=== PATIENT | female | born 1950 | race Caucasian/White ===

== ENCOUNTER 2020-05-03 21:20 | Emergency (ER) | payer OTHER ==
[2020-05-03] MEDS ORDERED: HYDROCODONE/APAP 10/325 TAB ONE (22:11)
[2020-05-03] MEDS ORDERED: LIDOCAINE 1% MPF 5 ML VIAL ONE (22:49)
[2020-05-04] MEDS ORDERED: DERMABOND SKIN ADHESIVE TOP ONE (00:27)
--- NOTE | 2020-05-04 00:31 | ER ---
Nurse's Notes [facility] Name: Carrol Dickens Age: 70 yrs Sex: Female : 1950 Arrival Date: 05/03/2020 Time: 21:21 Bed 19 Private MD: Diagnosis: Laceration without foreign body of other part of head-forehead;Superficial injury of head Presentation: 05/03 21:27 Chief complaint: Patient's son or daughter states: adult child states: " she had some jd3 alcohol and lorazepam. she fell while trying to get to the bathroom.". Coronavirus screen: At this time, the client does not indicate any symptoms associated with coronavirus-19. Ebola Screen: Patient negative for fever greater than or equal to 101.5 degrees Fahrenheit, and additional compatible Ebola Virus Disease symptoms. Initial Sepsis Screen: Does the patient meet any 2 criteria? No. Patient's initial sepsis screen is negative. Does the patient have a suspected source of infection? No. Patient's initial sepsis screen is negative. Risk Assessment: Do you want to hurt yourself or someone else? Patient reports no desire to harm self or others. Onset of symptoms was May 03, 2020. 21:27 Method Of Arrival: Wheelchair jd3 21:27 Acuity: SHIN 3 jd3 22:01 Care prior to arrival: Injury dressed. Mechanism of Injury:. Trauma event details: ea Injury occurred in the [facility], Injury occurred: at home. Injury occurred: May 03, 2020. Trauma Activation: Alert Physician: ED Physician; Name: ; Notified At: ; Arrived At: Physician: General Surgeon; Name: ; Notified At: ; Arrived At: Physician: Radiology; Name: ; Notified At: ; Arrived At: Physician: Respiratory; Name: ; Notified At: ; Arrived At: Physician: Lab; Name: ; Notified At: ; Arrived At: Historical: - Allergies: 21:30 sodium bisulfite; jd3 - PMHx: 21:30 None; jd3 - PSHx: 21:30 back; ; feet; Carpal Tunnel Repair; Cholecystectomy; jd3 - Immunization history:: Adult Immunizations up to date. - Social history:: Smoking status: Patient denies any tobacco usage or history of. - Immunization history: Last tetanus immunization: - up to date. Screenin:59 Abuse screen: Denies threats or abuse. Nutritional screening: No deficits noted. ea Tuberculosis screening: No symptoms or risk factors identified. Fall Risk Fall in past 12 months (25 points). Primary Survey: 21:59 NO uncontrolled hemorrhage observed. Breathing/Chest: Respiratory pattern: regular, ea Respiratory effort: spontaneous, unlabored. Circulation: Skin color: pink, Skin temperature: warm. Disability Alert. Exposure/Environment: Obvious injury(ies) are noted at this time: laceration to forehead. 05/04 00:45 Reassessment Breathing/Chest Respiratory pattern Regular Respiratory effort Spontaneous ll2 Unlabored. Secondary Survey: 05/03 22:00 Injury Description: Laceration sustained to forehead. ea Assessment: 21:50 General: Appears uncomfortable, Behavior is calm, cooperative, appropriate for age. ea Pain: Complains of pain in forehead. Neuro: Level of Consciousness is awake, alert, obeys commands, Oriented to person, place, time. Respiratory: Airway is patent Respiratory effort is even, unlabored, Respiratory pattern is regular, symmetrical. Derm: Skin is pink, warm \\T\\ dry. laceration to forehead. Injury Description: Laceration sustained to forehead is 0.5 to 2.5 cm long, was sustained 30-60 minutes ago. a small amount of bleeding noted at this time. 05/04 00:03 Reassessment: Patient and/or family updated on plan of care and expected duration. Pain ll2 level reassessed. Patient is alert, oriented x 3, equal unlabored respirations, skin warm/dry/pink. ERP to bedside to suture head lac. 00:32 Reassessment: adhesive dressing applied to lac. ll2 Vital Signs: 05/03 21:30 BP 119 / 84; Pulse 97; Resp 18 S; Temp 98.1(O); Pulse Ox 100% on R/A; Weight 62.14 kg jd3 (R); Height 5 ft. 5 in. (165.10 cm) (R); Pain 0/10; 23:14 BP 103 / 69; Pulse 93; Resp 18; Pulse Ox 97% on R/A; ll2 05/04 00:24 BP 101 / 69; Pulse 95; Resp 15; Pulse Ox 95% on R/A; ll2 05/03 21:30 Body Mass Index 22.80 (62.14 kg, 165.10 cm) jd3 Gail Coma Score: 05/03 22:01 Eye Response: spontaneous(4). Verbal Response: oriented(5). Motor Response: obeys ea commands(6). Total: 15. Trauma Score (Adult): 22:01 Eye Response: spontaneous(1); Verbal Response: oriented(1); Motor Response: obeys ea commands(2); Systolic BP: > 89 mm Hg(4); Respiratory Rate: 10 to 29 per min(4); [place] Score: 15; Trauma Score: 12 ED Course: 21:21 Patient arrived in ED. bp1 21:29 Triage completed. jd3 21:30 Arm band placed on. jd3 21:45 Esteban Larson NP is PHCP. pm1 21:45 Sonu Capps MD is Attending Physician. pm1 21:56 Renee Crow RN is Primary Nurse. ll2 22:00 Patient has correct armband on for positive identification. Bed in low position. Call ea light in reach. Side rails up X2. Pulse ox on. NIBP on. 22:01 Patient maintains SpO2 saturation greater than 95% on room air. Thermoregulation: warm ea blanket given to patient. 22:45 CT Head Brain wo Cont In Process Unspecified. EDMS 05/04 00:45 No provider procedures requiring assistance completed. Patient did not have IV access ll2 during this emergency room visit. Administered Medications: 05/03 22:01 Drug: [place] 5 mg-325 mg 1 tabs Route: PO; ll2 22:39 Follow up: Response: No adverse reaction ll2 22:43 Drug: Lidocaine (1 %) 5 ml Volume: 5 ml; Route: Infiltration; ll2 Intake: 05/04 00:42 PO: 0ml; Total: 0ml. ea Outcome: 00:30 Discharge ordered by . pm1 00:42 Discharged to home via wheelchair, with family. ea 00:42 Condition: stable 00:42 Patient's length of stay was not longer than 2 hours. 00:45 Discharge instructions given to patient, family, Instructed on discharge instructions, ll2 follow up and referral plans. Demonstrated understanding of instructions, follow-up care. 00:45 Patient left the ED. ll2 Signatures: Dispatcher [employer] EDMS Esteban Larson NP CERTIFIED MEDICAL BILLER pm1 Renu Coy, RN RN ea Nehemias, Gabo RN RN jd3 Renee Crow RN RN ll2 Debbie Morris
--- NOTE | 2020-05-04 00:32 | EDPHYS ---
Physician Documentation [facility] Name: Carrol Dickens Age: 70 yrs Sex: Female : 1950 Arrival Date: 05/03/2020 Time: 21:21 Bed 19 Private MD: ED Physician Sonu Capps HPI: 05/03 22:00 This 70 yrs old Female presents to ER via Wheelchair with complaints of Fall pm1 Injury, Head Injury Without LOC-Adult. 22:00 Details of fall: The patient fell from seated position, toilet. Onset: The pm1 symptoms/episode began/occurred just prior to arrival. Associated injuries: The patient sustained injury to the head, laceration. Patient sitting on the commode and when she leaned forward to get up she continued going forward and hit her head. No LOC. No neck pain. Historical: - Allergies: 21:30 sodium bisulfite; jd3 - PMHx: 21:30 None; jd3 - PSHx: 21:30 back; ; feet; Carpal Tunnel Repair; Cholecystectomy; jd3 - Immunization history:: Adult Immunizations up to date. - Social history:: Smoking status: Patient denies any tobacco usage or history of. - Immunization history: Last tetanus immunization: - up to date. ROS: 22:00 Constitutional: Negative for fever, chills, and weight loss, MS/Extremity: Negative for pm1 injury and deformity, Skin: Negative for injury, rash, and discoloration. 22:00 Neck: Negative for injury, pain, and swelling, Cardiovascular: Negative for chest pain, palpitations, and edema, Respiratory: Negative for shortness of breath, cough, wheezing, and pleuritic chest pain, Abdomen/GI: Negative for abdominal pain, nausea, vomiting, diarrhea, and constipation. 22:00 Back: Positive for chronic low back pain. 22:00 Neuro: Positive for headache, Negative for altered mental status, dizziness, numbness, tingling, weakness. Exam: 22:00 Constitutional: This is a well developed, well nourished patient who is awake, alert, pm1 and in no acute distress. Head/Face: Normocephalic, atraumatic. Neck: Trachea midline, no thyromegaly or masses palpated, and no cervical lymphadenopathy. Supple, full range of motion without nuchal rigidity, or vertebral point tenderness. No Meningismus. Chest/axilla: Normal chest wall appearance and motion. Nontender with no deformity. No lesions are appreciated. 22:00 Cardiovascular: Exam negative for acute changes, Rate: normal, Rhythm: regular, Pulses: no pulse deficits are appreciated, Edema: is not appreciated. 22:00 Respiratory: Exam negative for acute changes, respiratory distress, shortness of breath. 22:00 Abdomen/GI: Exam negative for acute changes, Inspection: abdomen appears normal, Palpation: abdomen is soft and non-tender. 22:00 Musculoskeletal/extremity: Exam is negative for acute changes, injury. 22:00 Skin: Appearance: normal except for affected area, injury, laceration(s), the wound is approximately 1 cm(s), with a depth of 0.5 cm(s), of the forehead. Vital Signs: 21:30 BP 119 / 84; Pulse 97; Resp 18 S; Temp 98.1(O); Pulse Ox 100% on R/A; Weight 62.14 kg jd3 (R); Height 5 ft. 5 in. (165.10 cm) (R); Pain 0/10; 23:14 BP 103 / 69; Pulse 93; Resp 18; Pulse Ox 97% on R/A; ll2 05/04 00:24 BP 101 / 69; Pulse 95; Resp 15; Pulse Ox 95% on R/A; ll2 05/03 21:30 Body Mass Index 22.80 (62.14 kg, 165.10 cm) jd3 Gail Coma Score: 05/03 22:01 Eye Response: spontaneous(4). Verbal Response: oriented(5). Motor Response: obeys ea commands(6). Total: 15. Trauma Score (Adult): 22:01 Eye Response: spontaneous(1); Verbal Response: oriented(1); Motor Response: obeys ea commands(2); Systolic BP: > 89 mm Hg(4); Respiratory Rate: 10 to 29 per min(4); Gail Score: 15; Trauma Score: 12 Laceration: 05/04 00:28 Wound Repair of 1cm ( 0.4in ) subcutaneous laceration to forehead. Irregularly shaped.. pm1 missing skin over area. Distal neuro/vascular/tendon intact. Anesthesia: Local anesthetic administered with 1 mls of 1% lidocaine. Wound prep: Extensive cleansing with hibiclenz by nurse, Wound irrigation with saline by nurse, Wound explored extensively, Copious irrigation. Skin closed with 5 6-0 Prolene using simple sutures and sterile technique. Dressed with 4x4's. Patient tolerated well. MDM: 05/03 21:48 Patient medically screened. pm1 05/04 00:29 Data reviewed: vital signs. Data interpreted: Pulse oximetry: on room air is 95 %. pm1 Interpretation: normal. Counseling: I had a detailed discussion with the patient and/or guardian regarding: the historical points, exam findings, and any diagnostic results supporting the discharge/admit diagnosis, radiology results, the need for outpatient follow up, suture removal in 4-5 days, to return to the emergency department if symptoms worsen or persist or if there are any questions or concerns that arise at home. 05/03 21:52 Order name: CT Head Brain wo Cont pm1 05/03 22:29 Order name: Dressing - Wound; Complete Time: 22:48 pm1 05/03 22:29 Order name: Gloves, Sterile; Complete Time: 22:48 pm1 05/03 22:29 Order name: Setup Suture Tray; Complete Time: 22:48 pm1 Administered Medications: 05/03 22:01 Drug: [place] 5 mg-325 mg 1 tabs Route: PO; ll2 22:39 Follow up: Response: No adverse reaction ll2 22:43 Drug: Lidocaine (1 %) 5 ml Volume: 5 ml; Route: Infiltration; ll2 Disposition: 05/04 05:36 Co-signature as Attending Physician, Sonu Capps MD. [email or web address] Disposition: 05/04/20 00:30 Discharged to Home. Impression: Laceration without foreign body of other part of head - forehead, Superficial injury of head. - Condition is Stable. - Discharge Instructions: Head Injury, Adult, Facial Laceration. - Medication Reconciliation Form, Thank You Letter, Antibiotic Education, Prescription Opioid Use form. - Follow up: Emergency Department; When: As needed; Reason: Worsening of condition. Follow up: Private Physician; When: 4-5 days; Reason: Staple/Suture removal. - Problem is new. - Symptoms have improved. Signatures: Dispatcher [employer] EDMS Esteban Larson, AMILCAR PLASTER FORM MAKER pm1 Renu Coy, RN RN Gabo Shahid, RN RN jd3 Renee Crow, RN RN ll2 Sonu Capps MD MD mh7 Corrections: (The following items were deleted from the chart) 00:45 00:30 05/04/2020 00:30 Discharged to Home. Impression: Laceration without foreign body ll2 of other part of head - forehead; Superficial injury of head. Condition is Stable. Forms are Medication Reconciliation Form, Thank You Letter, Antibiotic Education, Prescription Opioid Use. Follow up: Emergency Department; When: As needed; Reason: Worsening of condition. Follow up: Private Physician; When: 4-5 days; Reason: Staple/Suture removal. Problem is new. Symptoms have improved. pm1
[2020-05-04 00:52] VITALS: TEMP 98.1
[2020-05-04 00:54] VITALS: BP 101/69; O2SAT 95
--- NOTE | 2020-05-05 13:41 | RAD REPORT ---
EXAM DESCRIPTION: CT - Head Brain Wo Cont - 05/04/2020 4:16 am CLINICAL HISTORY: 70 years Female TRAUMA COMPARISON: None TECHNIQUE: Contiguous axial images of the brain were obtained without the administration of intraven ous contrast.This exam was performed according to our departmental dose-optimization program which in cludes use of Automated Exposure Control, adjustment of the mA and/or kV according to patient size an d/or use of iterative reconstruction technique. DLP: 881 mGy*cm FINDINGS: Brain: Punctate hypodensity in the right basal ganglia, nonspecific. No acute intracranial hemorrhage. No extra-axial collection. No mass effect or herniation. Mild prominence of the sulci and cisterns. Confluent periventricular and subcortical white matter hypodensity is noted. Ventricles: Mild prominence of ventricular system. No hydrocephalus.. Globes and orbits: No acute abnormality. Bones: No acute osseous finding Paranasal sinuses: Paranasal sinuses are clear. Mastoid air cells: Well pneumatized. Soft tissues: Within normal limits IMPRESSION: No acute intracranial hemorrhage, hydrocephalus or herniation. Cerebral volume loss and chronic small vessel ischemic changes. Consider MRI brain if clinically tita cated. Electronically signed by: Luis Barber DO 05/03/2020 10:35 PM CDT Due to temporary technical issues with the PACS/Fluency reporting system, reports are being signed by the in house radiologist without review as a courtesy to ensure prompt reporting. The interpreting r adiologist is fully responsible for the content of the report.
--- OUTSIDE RECORDS SUMMARY | 2020-05-07 02:04 | XMS REPORT | Continuity of Care Document ---
:1950 Author Organization [facility] t Address [address] [place] [address] Care Team Providers Name Role Phone Sam MONTIEL L Attending Clinician Problems This patient has no known problems. Allergies, Adverse Reactions, Alerts This patient has no known allergies or adverse reactions. Medications This patient has no known medications. Procedures This patient has no known procedures. Encounters Start End Encounter Admission Attending Care Care Encounter Source Date/Time Date/Time Type Type Clinicians Facility Department ID 2020-04-16 2020[facility]04-16 [facility] [id number] 15:13:25 23:59:00 Encounter Manolo L [facility] [id number] Surgical [id number] Specialti [id number] [address] 2020-04-16 2020-04-16 Office Sam [facility] [id number] 14:32:19 14:47:19 Visit Manolo Oleg [facility] [id number] Surgical [id number] Specialti [id number] es [address] Results This patient has no known results.
--- OUTSIDE RECORDS SUMMARY | 2020-05-07 02:04 | XMS REPORT | Summary of Care ---
:1950 Author Organization [facility] Address [address] [place] [id number] Care Team Providers Name Role Phone Mina Perez MD Primary Care Provider [phone] Reason for Visit Radiology Services (Routine) Status Reason Specialty Diagnoses / Referred By Referred To Procedures Contact Contact New Request Diagnostic Diagnoses Right lumbar radiculopathy Manolo Vargas Radiology Procedures XR HIP 1 VW BILATERAL Oleg, [address] [place] [phone] Encounter Details Date Type Department Care Team Description 04/16/2020 Hospital En[facility] [address] [place] [phone] Allergies Active Allergy Reactions Severity Noted Date Comments Sodium Bisulfite Hives, Shortness of Breath 04/16/2020 documented as of this encounter (statuses as of 04/17/2020) Medications Medication Sig Dispensed Refills Start Date End Date Status methylPREDNISolone Take 21 tablets 1 Each 0 04/16/2020 Active (MEDROL, SAL,) 4 mg by mouth tabletsIndications: SEE-INSTRUCTIONS Right lumbar . follow package radiculopathy directions documented as of this encounter (statuses as of 04/17/2020) Active Problems Not on filedocumented as of this encounter (statuses as of 04/17/2020) Social History Tobacco Use Types Packs/Day Years Used Date Never Smoker Smokeless Tobacco: Never Used Sex Assigned at Date Recorded Not on file COVID-19 Exposure Response Date Recorded In the last month, have you been in contact with No / Unsure 04/16/2020 2:47 PM CDT someone who was confirmed or suspected to have Coronavirus / COVID-19? documented as of this encounter Last Filed Vital Signs Not on filedocumented in this encounter Plan of Treatment Health Maintenance Due Date Last Done Comments HEPATITIS C (HCV) SCREEN 1950 Depression Screening 1963 DTaP,Tdap,and Td Vaccines (1 - Tdap) 1970 Breast Cancer Screening (MAMMOGRAM) 1991 COLON CANCER SCREENING ANNUAL FIT/FOBT 2001 COLON CANCER SCREENING FIT DNA EVERY 3 YEARS 2001 COLON CANCER SCREENING SIGMOIDOSCOPY EVERY 5 YEARS 2001 COLONOSCOPY 2001 Colorectal Cancer Screening 2001 Zoster Recombinant Vaccine (SHINGRIX) (1 of 2) 2001 Medicare Wellness Visit 2016 Osteoporosis Screening 2016 PNEUMOCOCCAL VACCINES 65+ (1 of 1 - PPSV23) 2016 INFLUENZA VACCINE (#1) 2020 documented as of this encounter Procedures Procedure Name Priority Date/Time Associated Diagnosis Comme nts XR HIP 1 VW Routine 04/16/2020 3:13 PM Pain Results for this BILATERAL CDT procedure are i n the results section. documented in this encounter Results XR HIP 1 VW BILATERAL (04/16/2020 3:13 PM CDT) Specimen Narrative Performed At This result has an attachment that is no t available. No sign of fracture or dislocation her joint spaces are well-maintained PACS she has a nice rounded femoral head and well-maintaine d femoral acetabular joint Performing Organization Address City/State/Zipcode Phone Number PACS documented in this encounter Visit Diagnoses Diagnosis Pain Generalized pain documented in this encounter
--- OUTSIDE RECORDS SUMMARY | 2020-05-07 02:04 | XMS REPORT | Summary of Care ---
:1950 Author Organization [facility] Address [address] [place] [address] Care Team Providers Name Role Phone Mina Perez MD Primary Care Provider [phone] Reason for Referral (Routine) Status Reason Specialty Diagnoses / Referred By Referred To Procedures Contact Contact Pending Location Physical Diagnoses Right lumbar radiculopathy Steve Peterson Review Preference Therapy Procedures CONSULT/REFERRAL PHYSICAL THERAPY S, PAC [address] [place] [address] Radiology Services (Routine) Status Reason Specialty Diagnoses / Referred By Referred To Procedures Contact Contact New Request Diagnostic Diagnoses Right lumbar radiculopathy Manolo Vargas Radiology Procedures XR HIP 1 VW BILATERAL MD Oleg [address] [place] [address] Reason for Visit Reason Comments New Patient Right hip pain x1 week Encounter Details Date Type Department Care Team Description 04/16/2020 Office Visit [facility] Manolo Vargas Right lumbar Orthopaedic Surgery- MD Oleg radiculopathy (Primary Jay Em [address] Dx) [address] [facility] [place] [phone] Allergies Active Allergy Reactions Severity Noted Date Comments Sodium Bisulfite Hives, Shortness of Breath 04/16/2020 documented as of this encounter (statuses as of 04/16/2020) Medications Medication Sig Dispensed Refills Start Date End Date Status methylPREDNISolone Take 21 tablets 1 Each 0 04/16/2020 Active (MEDROL, SAL,) 4 mg by mouth tabletsIndications: SEE-INSTRUCTIONS Right lumbar . follow package radiculopathy directions documented as of this encounter (statuses as of 04/16/2020) Active Problems Not on filedocumented as of this encounter (statuses as of 04/16/2020) Social History Tobacco Use Types Packs/Day Years [...] of this encounter Last Filed Vital Signs Vital Sign Reading Time Taken Comments Blood Pressure 163/100 04/16/2020 2:49 PM CDT Pulse 96 04/16/2020 2:43 PM CDT Temperature - - Respiratory Rate - - Oxygen Saturation - - Inhaled Oxygen Concentration - - Weight 63 kg (139 lb) 04/16/2020 2:43 PM CDT Height - - Body Mass Index - - documented in this encounter Progress Notes Steve Peterson S, PAC - 04/16/2020 2:15 PM CDT Cc: Chief Complaint Patient presents with New Patient Right hip pain x1 week Right hip pain x2 weeks Has films Carrol Dickens is a 70 year old female. Here for right hip pain onset. She has right low back pain in the gluteal region that radiates to her greater trochanter. No back spasms, no numbness or tingling the pain radiates intermediate down her thigh. He has tried Tylenol and Advil and is not getting relief She has chronic low back pain and has has 6 back surgeries. One performed by Shirin and the other wounds were performed by Dr. Nicolás Irving. She is not on pain management Allergies Carrol is allergic to sodium bisulfite. Medications No outpatient medications prior to visit. No facility-administered medications prior to visit. Histories No past medical history on file. No past surgical history on file. Social History Socioeconomic History Marital status: Spouse name: Not on file Number of children: Not on file Years of education: Not on file Highest education level: Not on file Occupational History Not on file Social Needs Financial resource strain: Not on file Food insecurity Worry: Not on file Inability: Not on file Transportation needs Medical: Not on file Non-medical: Not on file Tobacco Use Smoking status: Never Smoker Smokeless tobacco: Never Used Substance and Sexual Activity Alcohol use: Not on file Drug use: Not on file Sexual activity: Not on file Lifestyle Physical activity Days per week: Not on file Minutes per session: Not on file Stress: Not on file Relationships Social connections Talks on phone: Not on file Gets together: Not on file Attends amish service: Not on file Active member of club or organization: Not on file Attends meetings of clubs or organizations: Not on file Relationship status: Not on file Intimate partner violence Fear of current or ex partner: Not on file Emotionally abused: Not on file Physically abused: Not on file Forced sexual activity: Not on file Other Topics Concern Not on file Social History Narrative Not on file No family history on file. Review of Systems Constitutional: Negative. HENT: Negative. Eyes: Negative. Respiratory: Negative. Breasts: Negative. Cardiovascular: Negative. Gastrointestinal: Negative. Genitourinary: Negative. Musculoskeletal: Positive for joint swelling. Skin: Negative. Neurological: Negative. Psychiatric/Behavioral: Negative. Endocrine: Endocrine negative Vital Signs There were no vitals taken for this visit. Physical Exam Musculoskeletal: Back: Comments: Physical Exam Constitutional: oriented to person, place, and time. appears well-developed and well-nourished. HENT: Head: Normocephalic and atraumatic. Right Ear: External ear normal. Left Ear: External ear normal. Eyes: Conjunctivae are normal. Neck: Normal range of motion. No strabismus Neck supple. Cardiovascular: Normal rate and regular rhythm. Pulmonary/Chest: Normal respiratory rate equal chest rise and fall in no apparent distress Abdominal: Abdomen nondistended nontender Neurological: alert and oriented to person, place, and time. No asymmetry Skin: Skin is warm and dry. Psychiatric: normal mood and affect. behavior is normal. Judgment and thought content normal. Nursing note and vitals reviewed. She has a right lumbosacral pain that radiates around her gluteus to the mid right thigh this is exacerbated by active adduction of her hip She has a tremor with movement her deep tendon reflexes are hyperreflexive 4 over 4 to Achilles and patella bilateral her strength is 5 over 5 in the upper extremity but she does have a slight tremor with active use. Negative straight leg raise to 70 only some posterior thigh tightness. [facility] she arrived with a CT scan impression: One. Wall thickeningof the distal stomach and gastric antrum, the appearance of which may be over emphasized by peristalsis. No surrounding inflammatory changes. Correlate with underlying gastritis. 2. Prior cholecystectomy dilation of the common bile duct with sharp narrowing of the pancreatic head and borderline dilation of the common bile duct present these findings are nonspecific obstructing pancreatic head mass isidentifiable on CT compare with to any other prior outside imaging otherwise considered nonemergent extensive postsurgical changes along the lumbar spine. An punctate nonobstructing left nephrolithiasis chronic bilateral renal cortical thinning this was a CT of the abdomen and pelvis. Assessment/Plan 1. Right lumbar radiculopathy XR HIP 1 VW BILATERAL She does not have arthritic problems in her hip she does not have trochanteric bursitis this is her low back pain. We will send her to pain management. documented in this encounter Plan of Treatment Health [...] (#1) 2020 documented as of this encounter Results XR HIP 1 VW [...] documented in this encounter Visit Diagnoses Diagnosis Right lumbar radiculopathy - Primary Thoracic or lumbosacral neuritis or radi culitis, unspecified documented in this encounter
--- OUTSIDE RECORDS SUMMARY | 2020-05-07 02:04 | XMS REPORT | Summary of Care ---
:1950 Author Organization [facility] Address [address] [place] [address] Care Team Providers Name Role Phone Mina Perez MD Primary Care Provider [phone] Reason for Referral (Routine) Status Reason Specialty Diagnoses / Referred By Referred To Procedures Contact Contact Pending Location Physical Diagnoses Right lumbar radiculopathy Steve Peterson Review Preference Therapy Procedures CONSULT/REFERRAL PHYSICAL THERAPY S, PAC [address] [place] [address] Radiology Services (Routine) Status Reason Specialty Diagnoses / Referred By Referred To Procedures Contact Contact New Request Diagnostic Diagnoses Right lumbar radiculopathy Manolo Vargas Radiology Procedures XR HIP 1 VW BILATERAL MD Oleg [address] [place] [address] Reason for Visit Reason Comments New Patient Right hip pain x1 week Encounter Details Date Type Department Care Team Description 04/16/2020 Office Visit [facility] Manolo Vargas Right lumbar Orthopaedic Surgery- MD Oleg radiculopathy (Primary [place] [address] Dx) [address] [facility] [place] [address] Allergies Active Allergy [...] no numbness or tingling the pain radiates shelter down her thigh. He has tried Tylenol [...] file Gets together: Not on file Attends mandaeism service: Not on file Active member of [...]
== END 2020-05-04 00:45 | disposition home or self-care (01) ==
LOC: ER 21:20
PROC: 0JQ10ZZ Repair Face Subcutaneous Tissue and Fascia, Open Approach (ICD-10-PCS; principal; 2020-05-04)
DX: S01.81XA Laceration without foreign body of other part of head, initial encounter (principal); W18.11XA Fall from or off toilet without subsequent striking against object, initial encounter; Y93.89 Activity, other specified; Y92.9 Unspecified place or not applicable; Z91.048 Other nonmedicinal substance allergy status
CPT/HCPCS: 70450; 99284; G0390

== ENCOUNTER 2020-05-15 18:53 | Emergency (ER) | payer OTHER ==
--- OUTSIDE RECORDS SUMMARY | 2020-05-15 18:55 | XMS REPORT | Continuity of Care Document ---
:1950 Author Organization [facility] t Address [address] [place] [address] Care Team Providers Name Role Phone Sam [...] Type Clinicians Facility Department ID 2020-04-16 2020-04-16 [facility] [id number] 15:13:25 23:59:00 Encounter Manolo Dejesus [facility] [id number] Surgical [id number] Specialti [phone] [address] 2020-04-16 2020-04-16 Office Vargas [facility] [id number] 14:32:19 14:47:19 Visit Manolo [facility] [id number] Surgical [id number] Specialti [phone] [address] [place] Results This patient has no known results.
--- OUTSIDE RECORDS SUMMARY | 2020-05-15 18:55 | XMS REPORT | Summary of Care ---
:1950 Author Organization [facility] Address [address] [place] [address] Care Team Providers Name Role Phone Mina Perez MD Primary Care Provider [phone] Reason for Visit Radiology Services (Routine) Status Reason Specialty Diagnoses / Referred By Referred To Procedures Contact Contact New Request Diagnostic Diagnoses Right lumbar radiculopathy Manolo Vargas Radiology Procedures XR HIP 1 VW BILATERAL Oleg, [address] [place] [phone] Encounter Details Date Type Department Care Team Description 04/16/2020 Hospital [facility] [address] [place] [phone] Allergies Active Allergy Reactions Severity [...]
--- OUTSIDE RECORDS SUMMARY | 2020-05-15 18:55 | XMS REPORT | Summary of Care ---
:1950 Author Organization [facility] Address [address] [place] [address] Care Team Providers Name Role Phone Mina Perez MD Primary Care Provider [phone] Reason for Referral (Routine) Status Reason Specialty Diagnoses / Referred By Referred To Procedures Contact Contact Pending Location Physical Diagnoses Right lumbar radiculopathy Steve Peterson Review Preference Therapy Procedures CONSULT/REFERRAL PHYSICAL THERAPY S, PAC [address] [place] [address] Radiology Services (Routine) Status Reason Specialty Diagnoses / Referred By Referred To Procedures Contact Contact New Request Diagnostic Diagnoses Right lumbar radiculopathy Manolo Vargas Radiology Procedures XR HIP 1 VW BILATERAL MD Oleg [address] [place] [address] Reason for Visit Reason Comments New Patient Right hip pain x1 week Encounter Details Date Type Department Care Team Description 04/16/2020 Office Visit [facility] Manolo Vargas Right lumbar Orthopaedic Surgery- MD Oleg radiculopathy (Primary [place] [address] Dx) [address] [place] [address] Allergies Active Allergy Reactions [...] no numbness or tingling the pain radiates chcf down her thigh. He has tried Tylenol [...] file Gets together: Not on file Attends episcopal service: Not on file Active member of [...]
--- OUTSIDE RECORDS SUMMARY | 2020-05-15 18:55 | XMS REPORT | Summary of Care ---
:1950 Author Organization [facility] Address [address] [place] [address] Care Team Providers Name Role Phone Mina Perez MD Primary Care Provider [phone] Reason for Referral (Routine) Status Reason Specialty Diagnoses / Referred By Referred To Procedures Contact Contact Pending Location Physical Diagnoses Right lumbar radiculopathy Steve Peterson Review Preference Therapy Procedures CONSULT/REFERRAL PHYSICAL THERAPY S, PAC [address] [place] [address] Radiology Services (Routine) Status Reason Specialty Diagnoses / Referred By Referred To Procedures Contact Contact New Request Diagnostic Diagnoses Right lumbar radiculopathy Manolo Vargas Radiology Procedures XR HIP 1 VW BILATERAL MD Oleg [address] [place] [address] Reason for Visit Reason Comments New Patient Right hip pain x1 week Encounter Details Date Type Department Care Team Description 04/16/2020 Office Visit [facility] Manolo Vargas Right lumbar Orthopaedic Surgery- MD Oleg radiculopathy (Primary [place] [address] Dx) [address] [facility] [place] [address] Allergies Active Allergy Reactions [...] no numbness or tingling the pain radiates penitentiary down her thigh. He has tried Tylenol and Advil and is not getting relief She has chronic low back pain and has has 6 back surgeries. One performed by Shirin and the other wounds were performed by Dr. Nicolás Irving. She is not on pain management Allergies Crarol is allergic to sodium bisulfite. Medications No [...] file Gets together: Not on file Attends adventism service: Not on file Active member of [...]
--- NOTE | 2020-05-15 19:12 | ER ---
Nurse's Notes [facility] Name: Carrol Dickens Age: 70 yrs Sex: Female : 1950 Arrival Date: 05/15/2020 Time: 18:54 Bed Waiting Private MD: Mina Zepeda R Diagnosis: Encounter for removal of sutures Presentation: 05/15 19:09 Chief complaint: Patient states: I have several sutures on my forehead that I need to ss have seen and if they are ready to take out, Id like to have them removed. Coronavirus screen: Client denies travel out of the [place] in the last 14 days. At this time, the client does not indicate any symptoms associated with coronavirus-19. Ebola Screen: Patient negative for fever greater than or equal to 101.5 degrees Fahrenheit, and additional compatible Ebola Virus Disease symptoms Patient denies exposure to infectious person. Patient denies travel to an Ebola-affected area in the 21 days before illness onset. No symptoms or risks identified at this time. Initial Sepsis Screen: Does the patient meet any 2 criteria? No. Patient's initial sepsis screen is negative. Does the patient have a suspected source of infection? No. Patient's initial sepsis screen is negative. Risk Assessment: Do you want to hurt yourself or someone else? Patient reports no desire to harm self or others. Onset of symptoms was May 15, 2020. Care prior to arrival: None. Transition of care: patient was not received from another setting of care. 19:09 Acuity: SHIN 5 ss 19:09 Method Of Arrival: Ambulatory Historical: - Allergies: 19:10 sodium bisulfite; ss - PSHx: 19:10 back; ; feet; Carpal Tunnel Repair; Cholecystectomy; ss - Immunization history:: Adult Immunizations up to date. - Social history:: Smoking status: Patient denies any tobacco usage or history of. Vital Signs: 19:09 BP 118 / 88; Pulse 100; Resp 18; Temp 98.2; Pulse Ox 100% on R/A; Pain 0/10; ss ED Course: 18:54 Patient arrived in ED. ag5 18:55 Mina Zepeda MD is Private Physician. ag5 19:10 Triage completed. ss 19:10 Arm band placed on. ss 19:11 Adelaida Samuels FNP-C is [facility]. kb 19:11 Carter Wade MD is Attending Physician. kb Administered Medications: No medications were administered Outcome: 19:12 Discharge ordered by . kb 19:18 Patient left the ED. ss Signatures: Adelaida Samuels FNP-C FNP-Ckb Smirch, Shelby, RHONDA RN Aaron Fonseca ag5
--- NOTE | 2020-05-15 19:12 | EDPHYS ---
Physician Documentation [facility] Name: Carrol Dickens Age: 70 yrs Sex: Female : 1950 Arrival Date: 05/15/2020 Time: 18:54 Bed Waiting Private MD: Mina Zepeda R ED Physician Carter Wade HPI: 05/15 19:16 This 70 yrs old Female presents to ER via Ambulatory with complaints of kb Suture Removal. 19:16 The patient has sutures on the left side of forehead. Previous treatment: The patient kb was initially treated 12 day(s) ago, the care was rendered at [facility]. Sutures/sheldon progress: The patient has no c/o's. The wound is well-healing with no redness, swelling, discharge, or dehiscence reported. The patient has not experienced similar symptoms in the past. The patient has not recently seen a physician. Historical: - Allergies: 19:10 sodium bisulfite; ss - PSHx: 19:10 back; ; feet; Carpal Tunnel Repair; Cholecystectomy; ss - Immunization history:: Adult Immunizations up to date. - Social history:: Smoking status: Patient denies any tobacco usage or history of. ROS: 19:14 Constitutional: Negative for fever, chills, and weight loss, Cardiovascular: Negative kb for chest pain, palpitations, and edema, Respiratory: Negative for shortness of breath, cough, wheezing, and pleuritic chest pain, Abdomen/GI: Negative for abdominal pain, nausea, vomiting, diarrhea, and constipation, MS/Extremity: Negative for injury and deformity, Neuro: Negative for headache, weakness, numbness, tingling, and seizure. 19:14 Skin: Positive for of the left side of forehead, sutures in place. Exam: 19:14 Constitutional: This is a well developed, well nourished patient who is awake, alert, kb and in no acute distress. Head/Face: Normocephalic, atraumatic. Chest/axilla: Normal chest wall appearance and motion. Nontender with no deformity. No lesions are appreciated. Cardiovascular: Regular rate and rhythm with a normal S1 and S2. No gallops, murmurs, or rubs. Normal PMI, no JVD. No pulse deficits. Respiratory: Lungs have equal breath sounds bilaterally, clear to auscultation and percussion. No rales, rhonchi or wheezes noted. No increased work of breathing, no retractions or nasal flaring. Abdomen/GI: Soft, non-tender, with normal bowel sounds. No distension or tympany. No guarding or rebound. No evidence of tenderness throughout. MS/ Extremity: Pulses equal, no cyanosis. Neurovascular intact. Full, normal range of motion. Neuro: Awake and alert, GCS 15, oriented to person, place, time, and situation. Cranial nerves II-XII grossly intact. Motor strength 5/5 in all extremities. Sensory grossly intact. Cerebellar exam normal. Normal gait. 19:14 Skin: Wound recheck: Suture laceration closure: the wound is healing well, the edges are well approximated, no evidence of dehiscence, no drainage, no erythema, no swelling. Vital Signs: 19:09 BP 118 / 88; Pulse 100; Resp 18; Temp 98.2; Pulse Ox 100% on R/A; Pain 0/10; ss Procedures: 19:14 Suture/Staple removal: Removed 5 sutures, from left side of forehead, site appears well kb healed, dressed with band aid, Patient tolerated well. MDM: 19:11 Patient medically screened. kb 19:15 Data reviewed: vital signs, nurses notes. Data interpreted: Pulse oximetry: on room air kb is 100 %. Interpretation: normal. Counseling: I had a detailed discussion with the patient and/or guardian regarding: the historical points, exam findings, and any diagnostic results supporting the discharge/admit diagnosis, the need for outpatient follow up, a family practitioner, to return to the emergency department if symptoms worsen or persist or if there are any questions or concerns that arise at home. Administered Medications: No medications were administered Disposition: 05/16 13:32 Co-signature as Attending Physician, Carter Wade MD I agree with the assessment and kdr plan of care. Disposition: 05/15/20 19:12 Discharged to Home. Impression: Encounter for removal of sutures. - Condition is Stable. - Discharge Instructions: Suture Removal, Care After. - Medication Reconciliation Form, Thank You Letter, Antibiotic Education, Prescription Opioid Use form. - Follow up: Emergency Department; When: As needed; Reason: Worsening of condition. Follow up: Private Physician; When: 2 - 3 days; Reason: Recheck today's complaints, Continuance of care, Re-evaluation by your physician. Signatures: Adelaida Samuels, MARY KRAMER-Carter Zhou MD MD [facility] Marcia Mathew RN RN ss Corrections: (The following items were deleted from the chart) 05/15 19:18 19:12 05/15/2020 19:12 Discharged to Home. Impression: Encounter for removal of ss sutures. Condition is Stable. Forms are Medication Reconciliation Form, Thank You Letter, Antibiotic Education, Prescription Opioid Use. Follow up: Emergency Department; When: As needed; Reason: Worsening of condition. Follow up: Private Physician; When: 2 - 3 days; Reason: Recheck today's complaints, Continuance of care, Re-evaluation by your physician. kb
[2020-05-15 20:03] VITALS: BP 118/88; TEMP 98.2; O2SAT 100
== END 2020-05-15 19:18 | disposition home or self-care (01) ==
LOC: ER 18:53
DX: Z48.02 Encounter for removal of sutures (principal)
CPT/HCPCS: 99281

== ENCOUNTER 2020-10-14 20:44 | Emergency (ER) | payer OTHER ==
--- OUTSIDE RECORDS SUMMARY | 2020-10-14 20:47 | XMS REPORT | Continuity of Care Document ---
:1950 Author Organization [facility] t Address [address] [place] [address] Care Team Providers Name Role Phone Doctor Unassigned, Name Attending Clinician Unavailable Oleg Vargas MD Attending Clinician Problems This patient has no known problems. Allergies, Adverse Reactions, Alerts This patient has no known allergies or adverse reactions. Medications This patient has no known medications. Procedures This patient has no known procedures. Encounters Start End Encounter Admission Attending Care Care Encounter Source Date/Time Date/Time Type Type Clinicians Facility Department ID 2020-07-07 2020-07-07 Orders Doctor HERNANDES [id number] 00:00:00 00:00:00 Only UnassignedEDUARDO [id number] [facility] [id number] 2020-05-08 2020-05-08 Orders Doctor HERNANDES [id number] 00:00:00 00:00:00 Only UnassignedEDUARDO [id number] [facility] [id number] 2020-04-16 2020-04-16 [facility] [id number] 15:13:25 23:59:00 Encounter [facility] [id number] Surgical [id number] Specialti [id number] es [address] [place] 2020-04-16 2020-04-16 Office Vargas, [facility] [id number] 14:32:19 14:47:19 Visit [facility] [id number] Surgical [id number] Special [id number] [address] Results This patient has no known results.
--- NOTE | 2020-10-14 22:49 | ER ---
Nurse's Notes [facility] Name: Carrol Dickens Age: 70 yrs Sex: Female : 1950 Arrival Date: 10/14/2020 Time: 20:45 Bed 14 Private MD: Diagnosis: Fall due to bumping against object;Traumatic subdural hemorrhage-parafalcine, trace left frontal SAH;Contusion of right elbow Presentation: 10/14 21:01 Chief complaint: Patient states: Fell out of bed yesterday at 1700. States she hit the ll1 back of her head and passed out. Hematoma with laceration to back of head. + head and neck pain. Bruising noted to neck area. States it was her first time to take the trazodone. Coronavirus screen: Client denies travel out of the [place] in the last 14 days. At this time, the client does not indicate any symptoms associated with coronavirus-19. Ebola Screen: Patient denies travel to an Ebola-affected area in the 21 days before illness onset. Mechanism of Injury: The problem was sustained at home, resulted from a fall. Initial Sepsis Screen: Does the patient meet any 2 criteria? HR > 90 bpm. No. Patient's initial sepsis screen is negative. Does the patient have a suspected source of infection? Yes: Bone or joint infection. Risk Assessment: Do you want to hurt yourself or someone else? Patient reports no desire to harm self or others. Onset of symptoms was October 13, 2020. 21:01 Method Of Arrival: Ambulatory ll1 21:01 Acuity: SHIN 2 ll1 Historical: - Allergies: 21:06 sodium bisulfite; ll1 - PMHx: 21:06 Anxiety; Depression; ll1 21:06 GERD; ll1 - PSHx: 21:06 back; ; feet; Carpal Tunnel Repair; Cholecystectomy; ll1 - Immunization history:: Flu vaccine is not up to date. - Social history:: Smoking status: Patient denies any tobacco usage or history of. - Family history:: not pertinent. Screenin:29 Abuse screen: Denies threats or abuse. Denies injuries from another. Nutritional iw screening: No deficits noted. Tuberculosis screening: No symptoms or risk factors identified. Fall Risk Fall in past 12 months (25 points). IV access (20 points). Assessment: 22:27 General: Appears in no apparent distress. Behavior is calm, cooperative. Pain: iw Complains of pain in head, neck, right elbow. Neuro: Level of Consciousness is awake, alert, obeys commands, Oriented to person, place, time, situation, Moves all extremities. Neuro: Reports headache in right occipital area. Cardiovascular: Patient's skin is warm and dry. Respiratory: Respiratory effort is even, unlabored, Respiratory pattern is regular, symmetrical. GI: Abdomen is flat, non-distended. Derm: Skin is intact, is fragile, is thin. Musculoskeletal: Range of motion: intact in all extremities. 23:30 Reassessment: Patient appears in no apparent distress at this time. Patient and/or iw family updated on plan of care and expected duration. Pain level reassessed. Patient is alert, oriented x 3, equal unlabored respirations, skin warm/dry/pink. 10/15 00:17 Reassessment: report given to [facility], patient in good condition, IV intact, mg2 AOx4. Vital Signs: 10/14 21:01 BP 162 / 102; Pulse 117; Resp 17; Temp 97.7; Pulse Ox 98% ; Weight 61.23 kg; Height 5 ll1 ft. 3 in. (160.02 cm); Pain 9/10; 22:27 BP 152 / 82; Pulse 102; Resp 16 S; Pulse Ox 100% on R/A; iw 21:01 Body Mass Index 23.91 (61.23 kg, 160.02 cm) ll1 [place] Coma Score: 21:01 Eye Response: spontaneous(4). Verbal Response: oriented(5). Motor Response: obeys ll1 commands(6). Total: 15. 22:33 Eye Response: spontaneous(4). Verbal Response: oriented(5). Motor Response: obeys zahra commands(6). Total: 15. 22:33 Eye Response: spontaneous(4). Verbal Response: oriented(5). Motor Response: obeys zahra commands(6). Total: 15. ED Course: 20:45 Patient arrived in ED. cl3 21:04 Triage completed. ll1 21:07 Arm band placed on. ll1 21:10 Notified ED physician of Notified Charge Nurse of. dm5 21:38 Gian Bauman MD is Attending Physician. zahra 21:40 Stephany Ferrer, RN is Primary Nurse. iw 21:53 CT Head C Spine In Process Unspecified. EDMS 22:30 Initial lab(s) drawn, by me, sent to lab. Inserted saline lock: 22 gauge in left iw forearm, using aseptic technique. 22:42 initiated a transfer with Christelle Banda from [facility]. mw2 22:54 XRAY Chest (1 view) In Process Unspecified. EDMS 23:01 doc to doc with the Neurologist from [facility]. mw2 23:06 administrative approval given by Christelle Banda/ patient has been accepted to [address] [place] [address] bed 12/ Dr. Gonzalez accepted the patient in transfer/ report to be called to [phone]. 10/15 00:16 No provider procedures requiring assistance completed. Patient transferred, IV remains mg2 in place. 00:17 Patient has correct armband on for positive identification. mg2 Administered Medications: 10/14 23:01 Drug: Keppra 1000 mg Route: IV; Rate: per protocol; Site: left forearm; 10/15 00:21 Follow up: IV Status: Completed infusion 10/14 23:02 Drug: NS 0.9% 500 ml Route: IV; Rate: bolus; Site: left forearm; 10/15 00:00 Follow up: IV Status: Completed infusion 10/14 23:02 Drug: morphine 2 mg Route: IVP; Site: left forearm; 10/15 00:21 Follow up: Response: No adverse reaction; Pain is decreased 10/14 23:02 Drug: Zofran (Ondansetron) 4 mg Route: IVP; Site: left forearm; 10/15 00:22 Follow up: Response: No adverse reaction iw 00:21 Not Given (Duplicate Order): NS 0.9% 1000 ml IV at 125 ml/hr continuous zahra 00:23 Not Given (pt transferred): NS 0.9% with KCl 20 mEq/L 1000 ml IV at 100 ml/hr continuousiw Outcome: 10/14 22:49 ER care complete, transfer ordered by . zahra 10/15 00:17 Transferred by ground EMS to [facility], Transfer form completed. mg2 Condition: stable Instructed on the need for transfer, Demonstrated understanding of instructions. 00:23 Patient left the ED. iw Signatures: Dispatcher [employer] Selina Plummer, RN RN Gian Schuler MD MD cha Williams, Irene, RN RN iw Ramya Degroot mw2 Malcolm Birmingham RN RN mg2 Roberto Ruiz cl3 Gail Ruiz RN RN ll1
--- NOTE | 2020-10-14 22:50 | EDPHYS ---
Physician Documentation [facility] Name: Carrol Dickens Age: 70 yrs Sex: Female : 1950 Arrival Date: 10/14/2020 Time: 20:45 Bed 14 Private MD: Gian Dorman HPI: 10/14 22:33 This 70 yrs old Female presents to ER via Ambulatory with complaints of Head zahra Injury-Adult, Fall Injury. 22:33 The patient or guardian reports injury, pain, swelling, tenderness. The complaints zahra affect the right side of the back of head. Context of injury: The problem was sustained at home. Onset: The symptoms/episode began/occurred yesterday. Associated signs and symptoms: Loss of consciousness: This patient did not experience any loss of consciousness. The patient has not experienced similar symptoms in the past. Historical: - Allergies: 21:06 sodium bisulfite; ll1 - PMHx: 21:06 Anxiety; Depression; ll1 21:06 GERD; ll1 - PSHx: 21:06 back; ; feet; Carpal Tunnel Repair; Cholecystectomy; ll1 - Immunization history:: Flu vaccine is not up to date. - Social history:: Smoking status: Patient denies any tobacco usage or history of. - Family history:: not pertinent. ROS: 22:33 Constitutional: Negative for fever, chills, and weight loss, Eyes: Negative for injury, zahra pain, redness, and discharge, ENT: Negative for injury, pain, and discharge, Neck: Negative for injury, pain, and swelling, Cardiovascular: Negative for chest pain, palpitations, and edema, Respiratory: Negative for shortness of breath, cough, wheezing, and pleuritic chest pain, Back: Negative for injury and pain, : Negative for injury, bleeding, discharge, and swelling, MS/Extremity: Negative for injury and deformity, Skin: Negative for injury, rash, and discoloration, Psych: Negative for depression, anxiety, suicide ideation, homicidal ideation, and hallucinations, Allergy/Immunology: Negative for hives, rash, and allergies, Endocrine: Negative for neck swelling, polydipsia, polyuria, polyphagia, and marked weight changes, Hematologic/Lymphatic: Negative for swollen nodes, abnormal bleeding, and unusual bruising. 22:33 Abdomen/GI: Positive for nausea. 22:33 Neuro: Positive for headache. Exam: 22:33 Constitutional: This is a well developed, well nourished patient who is awake, alert, zahra and in no acute distress. Eyes: Pupils equal round and reactive to light, extra-ocular motions intact. Lids and lashes normal. Conjunctiva and sclera are non-icteric and not injected. Cornea within normal limits. Periorbital areas with no swelling, redness, or edema. ENT: Nares patent. No nasal discharge, no septal abnormalities noted. Tympanic membranes are normal and external auditory canals are clear. Oropharynx with no redness, swelling, or masses, exudates, or evidence of obstruction, uvula midline. Mucous membranes moist. Neck: Trachea midline, no thyromegaly or masses palpated, and no cervical lymphadenopathy. Supple, full range of motion without nuchal rigidity, or vertebral point tenderness. No Meningismus. Chest/axilla: Normal chest wall appearance and motion. Nontender with no deformity. No lesions are appreciated. Cardiovascular: Regular rate and rhythm with a normal S1 and S2. No gallops, murmurs, or rubs. Normal PMI, no JVD. No pulse deficits. Respiratory: Lungs have equal breath sounds bilaterally, clear to auscultation and percussion. No rales, rhonchi or wheezes noted. No increased work of breathing, no retractions or nasal flaring. Abdomen/GI: Soft, non-tender, with normal bowel sounds. No distension or tympany. No guarding or rebound. No evidence of tenderness throughout. Back: No spinal tenderness. No costovertebral tenderness. Full range of motion. Skin: Warm, dry with normal turgor. Normal color with no rashes, no lesions, and no evidence of cellulitis. MS/ Extremity: Pulses equal, no cyanosis. Neurovascular intact. Full, normal range of motion. Psych: Awake, alert, with orientation to person, place and time. Behavior, mood, and affect are within normal limits. 22:33 Neuro: Orientation: is normal, appropriate for stated age, no acute changes, Mentation: is normal, appropriate for stated age, no acute changes, Memory: is normal, appropriate for stated age, no acute changes, Motor: is normal, is grossly normal based on the patient's age, no acute changes, moves all fours, Sensation: appropriate no acute changes, Gait: not tested. seizure activity, is not displayed by the patient. 23:20 ECG was reviewed by the Attending Physician. [facility] Vital Signs: 21:01 BP 162 / 102; Pulse 117; Resp 17; Temp 97.7; Pulse Ox 98% ; Weight 61.23 kg; Height 5 ll1 ft. 3 in. (160.02 cm); Pain 9/10; 22:27 BP 152 / 82; Pulse 102; Resp 16 S; Pulse Ox 100% on R/A; iw 21:01 Body Mass Index 23.91 (61.23 kg, 160.02 cm) ll1 [place] Coma Score: 21:01 Eye Response: spontaneous(4). Verbal Response: oriented(5). Motor Response: obeys ll1 commands(6). Total: 15. 22:33 Eye Response: spontaneous(4). Verbal Response: oriented(5). Motor Response: obeys zahra commands(6). Total: 15. 22:33 Eye Response: spontaneous(4). Verbal Response: oriented(5). Motor Response: obeys zahra commands(6). Total: 15. MDM: 21:39 Patient medically screened. zahra 22:33 Differential diagnosis: Contusion of Hematoma on Laceration of Intracranial bleed- zahra Concussion cerebral contusion. Data reviewed: vital signs, nurses notes, lab test result(s), EKG, radiologic studies, CT scan, plain films. Data interpreted: quality assurance monitor: rate is 102 beats/min, rhythm is regular, Pulse oximetry: on room air is 100 %. Test interpretation: by ED physician or midlevel provider: ECG, plain radiologic studies. Counseling: I had a detailed discussion with the patient and/or guardian regarding: the historical points, exam findings, and any diagnostic results supporting the discharge/admit diagnosis, lab results, radiology results. 10/14 22:32 Order name: Basic Metabolic Panel [facility] 10/14 22:32 Order name: CBC with Diff [facility] 10/14 22:32 Order name: LFT's; Complete Time: 00:17 [facility] 10/14 22:32 Order name: Magnesium; Complete Time: 00:17 [facility] 10/14 22:32 Order name: NT PRO-BNP; Complete Time: 00:17 [facility] 10/14 22:32 Order name: PT-INR; Complete Time: 23:50 [facility] 10/14 22:32 Order name: Troponin (emerg Dept Use Only); Complete Time: 00:17 [facility] 10/14 22:33 Order name: Basic Metabolic Panel; Complete Time: 00:17 [facility] 10/14 22:33 Order name: CBC with Automated Diff; Complete Time: 23:50 [facility] 10/14 22:34 Order name: COVID-19 : Document "Date of Symptom Onset" if Symptomatic. mg2 10/14 23:41 Order name: Urine Dipstick--Ancillary (enter results) [facility] 10/14 23:42 Order name: Urine Dipstick-Ancillary [facility] 10/15 00:15 Order name: SARS-COV-2 RT PCR; Complete Time: 00:17 [facility] 10/14 21:10 Order name: CT Head C Spine [facility] 10/14 22:32 Order name: XRAY Chest (1 view) [facility] 10/14 22:32 Order name: EKG; Complete Time: 22:34 [facility] 10/14 22:32 Order name: Cardiac monitoring; Complete Time: 23:09 [facility] 10/14 22:32 Order name: EKG - Nurse/Tech; Complete Time: 23:09 [facility] 10/14 22:32 Order name: IV Saline Lock; Complete Time: 23:09 [facility] 10/14 22:32 Order name: Labs collected and sent; Complete Time: 23:09 [facility] 10/14 22:32 Order name: O2 Per Protocol; Complete Time: 23:09 [facility] 10/14 22:32 Order name: O2 Sat Monitoring; Complete Time: 23:09 [facility] 10/14 22:32 Order name: Urine Dipstick-Ancillary (obtain specimen); Complete Time: 23:42 [facility] 10/14 22:32 Order name: Ice pack; Complete Time: 01:04 [facility] EC:20 Rate is 103 beats/min. Rhythm is regular. QRS [place] is Normal. NC interval is normal. [facility] QRS interval is normal. QT interval is normal. No Q waves. T waves are Normal. No ST changes noted. Clinical impression: Sinus tachycardia. Interpreted by me. Reviewed by me. Administered Medications: 23:01 Drug: Keppra 1000 mg Route: IV; Rate: per protocol; Site: left forearm; 10/15 00:21 Follow up: IV Status: Completed infusion 10/14 23:02 Drug: NS 0.9% 500 ml Route: IV; Rate: bolus; Site: left forearm; 10/15 00:00 Follow up: IV Status: Completed infusion iw 10/14 23:02 Drug: morphine 2 mg Route: IVP; Site: left forearm; 10/15 00:21 Follow up: Response: No adverse reaction; Pain is decreased iw 10/14 23:02 Drug: Zofran (Ondansetron) 4 mg Route: IVP; Site: left forearm; 10/15 00:22 Follow up: Response: No adverse reaction iw 00:21 Not Given (Duplicate Order): NS 0.9% 1000 ml IV at 125 ml/hr continuous zahra 00:23 Not Given (pt transferred): NS 0.9% with KCl 20 mEq/L 1000 ml IV at 100 ml/hr continuousiw Disposition: 10/14/20 22:49 Transfer ordered to [facility]. Diagnosis are Fall due to bumping against object, Traumatic subdural hemorrhage - parafalcine, trace left frontal SAH, Contusion of right elbow. - Reason for transfer: Higher level of care. - Accepting physician is to neuro, icu. - Condition is Fair. - Problem is new. - Symptoms have improved. Signatures: Dispatcher [employer] EDCT Gian Bauman MD MD cha Williams, Irene, RN RN iw Gail Ruiz RN RN ll1 Corrections: (The following items were deleted from the chart) 10/14 22:47 22:35 CORONAVIRUS ordered. [facility] 10/15 00:23 10/14 22:49 10/14/2020 22:49 Transfer ordered to [facility]. iw Diagnosis is Fall due to bumping against object; Traumatic subdural hemorrhage - parafalcine, trace left frontal SAH; Contusion of right elbow. Reason for transfer: Higher level of care. Accepting physician is to neuro, icu. Condition is Fair. Problem is new. Symptoms have improved. zahra
[2020-10-14 23:07] LABS: Protime INR 0.9
[2020-10-14] MEDS ORDERED: NA CHLORIDE 0.9% 100 ML ONE (23:07)
[2020-10-14] MEDS ORDERED: LEVETIRACETAM 500 MG/5 ML VIAL IV ONE (23:07)
[2020-10-14] MEDS ORDERED: NA CHLORIDE 0.9% 1,000 ML ONE (23:07)
[2020-10-14] MEDS ORDERED: ONDANSETRON 4 MG/2 ML VIAL ONE (23:08)
[2020-10-14] MEDS ORDERED: MORPHINE 2 MG/ML SYR ONE (23:08)
[2020-10-14 23:10] LABS: Absolute Lymphocytes (CBC) 0.8 K/uL (0.7-4.9); Basophils % 0.7 % (0-1.3); Hematocrit 30.7 % (36.0-45.0); Lymphocytes % 17.3 % (15.3-44.8); MPV 7.7 fL (7.6-11.3); RBC Red Blood Cell Count 2.99 M/uL (3.86-4.86)
[2020-10-14 23:51] LABS: ALT/SGPT 20 U/L (12-78); AST/SGOT 23 U/L (15-37); Albumin 3.7 g/dL (3.4-5.0); BUN Blood Urea Nitrogen 14 mg/dL (7-18); Bicarbonate 20 mmol/L (21-32); Bilirubin Direct 0.2 mg/dL (0-0.2); Bilirubin Total 0.8 mg/dL (0.2-1.0); Glucose Level 125 mg/dL (74-106); Magnesium 1.8 mg/dL (1.8-2.4); NT PRO-BNP 1018 pg/mL (<125); Potassium 3.4 mmol/L (3.5-5.1); Protein, Total 7.4 g/dL (6.4-8.2); Sodium Level 138 mmol/L (136-145); Troponin (Emerg Dept Use Only) < 0.02 ng/mL (0.0-0.045)
[2020-10-14 23:52] LABS: Alkaline Phosphatase ND U/L (45-117)
[2020-10-15 00:25] LABS: Urine Blood NEGATIVE (NEG); Urine Glucose NEGATIVE (NEG); Urine Protein 1+ (NEG)
[2020-10-15 00:27] VITALS: TEMP 97.7
[2020-10-15 00:28] VITALS: BP 152/82; O2SAT 100
--- NOTE | 2020-10-15 08:47 | RAD REPORT ---
EXAM DESCRIPTION: RAD - Chest Single View - 10/14/2020 10:54 pm CLINICAL HISTORY: COUGH Chest pain. COMPARISON: CHEST SINGLE VIEW dated 07/25/2012; ABDOMEN ACUTE SERIES dated 03/20/2010; CHEST SINGLE V IEW dated 11/19/2008; CHEST PA AND LAT 2 VIEW dated 02/10/2007 FINDINGS: Portable technique limits examination quality. The lungs are grossly clear. The heart is normal in size. No displaced fractures.Mild thoracic dextro scoliosis. IMPRESSION: No acute intrathoracic process suspected.
--- NOTE | 2020-10-15 09:41 | RAD REPORT ---
EXAM DESCRIPTION: CT Head C Spine Mpr Wo Con CLINICAL HISTORY: 70 years Female fall, head injury TECHNIQUE: Contiguous axial CT images obtained through the brain and cervical spine without IV contr ast. Coronal and sagittal reformatted images also provided. This CT exam was performed according to our departmental dose-optimization program, which includes on e or more of the following dose reduction techniques: automated exposure control, adjustment of the m A and/or kV according to patient size, and/or use of iterative reconstruction technique. COMPARISON: CT brain dated 05/03/2020 FINDINGS: There is a large right posterior scalp hematoma with trace subcutaneous gas. No visualized acute skull fracture. There is a trace amount of diffuse parafalcine subdural, measuring up to 2 mm in thickness. There is possible trace left frontal subarachnoid hemorrhage hemorrhage. No other acute intracranial hemorrhag e. No mass effect, midline shift, or hydrocephalus. No evidence of acute transcortical infarction. Scattered chronic microvascular changes and mild diffuse volume loss are stable. Minimal left ethmoid sinusitis. The remainder of the visualized paranasal sinuses and mastoid air [place] ls are clear. Prior anterior discectomies and fusion at C3-C5 with mature osseous fusion. There is also ossificatio n of the posterior longitudinal ligament at the C4 and C5 levels. There is slight reversal of the nor mal cervical lordosis without acute cervical spine fracture or spondylolisthesis. Carotid atherosclerosis without prevertebral or paraspinal soft tissue swelling. The lung apices are clear. At C2-C3, there is moderate right neural foraminal stenosis. At C3-C4, there is moderate central canal stenosis with moderate to severe bilateral neural foraminal stenosis. At the level of C4, there is moderate central canal stenosis due to ossification of the posterior sarahi gitudinal ligament. At C4-C5, there is moderate central canal stenosis with moderate bilateral neural foraminal stenosis. At the level of C5, there is moderate central canal stenosis due to ossification of the posterior sarahi gitudinal ligament. At C5-C6, there is moderate central canal stenosis with severe right and moderate left neural foramin al stenosis. At C6-C7, there is moderate central canal stenosis, left greater than right, with moderate left neura l foraminal stenosis. At C7-T1, there is no central canal or neural foraminal stenosis. IMPRESSION: Large right posterior scalp hematoma. No acute skull fracture. Trace acute parafalcine subdural hematoma measures up to 2 mm in thickness. Possible trace left front al subarachnoid hemorrhage. No midline shift or hydrocephalus. No other acute intracranial abnormality. Chronic postsurgical and degenerative changes in the cervical spine without acute fracture. Multileve l central canal or neural foraminal stenoses as described, particularly related to ossification of po sterior longitudinal ligament at C4 and C5. THIS REPORT CONTAINS FINDINGS THAT MAY BE CRITICAL TO PATIENT CARE: The findings were verbally discu ssed via telephone conference with Dr. Gian Bauman by Dr. Brittney Hartley on 10/14/2020 10:16 PM CDT . The results were acknowledged and understood. Electronically signed by: Brittney Hartley MD 10/14/2020 10:21 PM CDT Due to temporary technical issues with the PACS/Fluency reporting system, reports are being signed by the in house radiologist without review as a courtesy to ensure prompt reporting. The interpreting r adiologist is fully responsible for the content of the report.
== END 2020-10-15 00:23 | disposition short-term general hospital (02) ==
LOC: ER 20:44
DX: S06.5X0A Traumatic subdural hemorrhage without loss of consciousness, initial encounter (principal); S50.01XA Contusion of right elbow, initial encounter; W06.XXXA Fall from bed, initial encounter; Y93.9 Activity, unspecified; Y92.003 Bedroom of unspecified non-institutional (private) residence as the place of occurrence of the external cause; Z20.822 Contact with and (suspected) exposure to COVID-19; Z88.8 Allergy status to other drugs, medicaments and biological substances
CPT/HCPCS: 96365; 93005 ×2; 85025; 80048; 36415; 83735; 85610; 80076; 81003; 84484; 83880; 70450; 72125; 71045; 96375; 99285; U0003; J2270; J1953; J7030; J2405

== ENCOUNTER 2020-11-01 12:25 | Emergency (ER) | payer OTHER ==
--- OUTSIDE RECORDS SUMMARY | 2020-11-01 12:29 | XMS REPORT | Continuity of Care Document ---
:1950 Author Organization [facility] t Address [address] [place] [address] [address] [place] [address] Care Team Providers Name Role Phone Pcp MD Primary Care Physician Unavailable Carlos MONTIEL I. Attending Clinician Paulette Almazan MD Attending Clinician Namita MONTIEL Attending Clinician Piyush ADLER Attending Clinician Unavailable Doctor Unassigned, Name Attending Clinician Unavailable Sam MONTIEL, L Attending Clinician Piyush ADLER Admitting Clinician Unavailable Payers Payer Name Policy Type Policy Effective Date Expiration Date Sour ce Number MEDICAREMEDICARE A [id number] 2016 SAEID Velez [id number] 00:00:00 - [facility] Problems Condition Condition Condition Status Onset Resolution Last Treating Co mments Source Name Details Category Date Date Treatment Clinician Date GERD GERD Disease Active [facility] ([facility]astroeso (gastroeso 3-18 Christine kes - phageal phageal 00:00: Medical reflux reflux [address] [place] [address] disease) disease) SDH SDH Disease Active [facility] (subdural (subdural 3-18 Luke [facility] - hematoma) hematoma) 00:00: Medi francisco javier 00 Center Essential Essential Disease Active [facility] hypertensi hypertensi 3-18 Christine kes - on on 00:00: Medical 00 Center Allergies, Adverse Reactions, Alerts Allergy Allergy Status Severity Reaction(s) Onset Inactive Treating Comm ents Source Name Type Date Date Clinician Pauly Dustyensi Active [facility] Bisulf[facility] ty to 10-15 [facility] - e adverse 00:00: Medical reaction 00 Mcneal s Social History Social Habit Start Date Stop Date Quantity Comments Source Sex Assigned At [facility] Exposure to SARS-CoV-2 Not sure [facility] (event) Center Medications Ordered Filled Start Stop Current Ordering Indication Dosage Frequency Signature Comments Components Source Medication Medication Date Date Medication? Clinician (SIG) Name Name venlafaxine 2021- Yes 75mg Q.5D Take [address] [facility] (EFFEXOR-XR 10-16 capsule Luke s - ) 75 MG 24 00:00: 23:59 (75 mg Medi francisco javier hr capsule 00 :00 total) by Cent er mouth 2 (two) times daily. acetaminoph No 500mg Take [address] en 10-16 tablet [facility]ukes - (TYLENOL) 00:00: 23:59 (500 mg Medi francisco javier 500 MG 00 :00 total) by Center tablet mouth every 6 (six) hours as needed for Pain for up to 10 days. LORazepam 2020- No .5mg [id number] Take [address] [facility] (ATIVAN) 10-16 [id number] tablet Christine kes - 0.5 MG 00:00: 23:59 3D (0.5 mg Medical tablet 00 :00 total) by Center mouth 3 (three) times daily for 10 days. Max Daily Amount: 1.5 mg cefpodoxime 2020- No 100mg Q.5D Take [address] (VANTIN) 10-16 tablet [facility] - 100 MG 00:00: 23:59 (100 mg Medical tablet 00 :00 total) by Center mouth 2 (two) times daily for 7 days. LORazepam 2020- No .5mg Q.[id number] Take [address] [facility] (ATIVAN) 10-16 [id number] tablet Christine kes - 0.5 MG 00:00: 00:00 3D (0.5 mg Medical tablet 00 :00 total) by Center mouth 3 (three) times daily for 10 days. Max Daily Amount: 1.5 mg venlafaxine No 75mg Q.5D Take [address] [facility] [address] (EFFEXOR-XR 10-16 capsule Luke s - ) 75 MG 24 00:00: 00:00 (75 mg Medi francisco javier hr capsule 00 :00 total) by Cent er mouth 2 (two) times daily. ciprofloxac No 500mg Q.5D Take [address] in HCl 10-16 tablet [facility] - (CIPRO) 500 00:00: 00:00 (500 mg Me dical MG tablet 00 :00 total) by Cente r mouth 2 (two) times daily for 7 days. cefpodoxime 100mg Q.5D Take [address] (VANTIN) 10-16 tablet [facility] - 100 MG 00:00: 00:00 (100 mg Medical tablet 00 :00 total) by Center mouth 2 (two) times daily for 7 days. Vital Signs Vital Name Observation Time Observation Value Comments Source Systolic blood 2020-10-16 11:41:00 159 mm[Hg] [facility] Diastolic blood 2020-10-16 11:41:00 72 mm[Hg] [facility] Heart rate 2020-10-16 11:41:00 88 /min [facility] Body temperature 2020-10-16 11:41:00 37.17 Verónica [facility] Respiratory rate 2020-10-16 11:41:00 18 /min [facility] Oxygen saturation in 2020-10-16 11:41:00 100 /min [facility] Arterial blood by Medical Ce nter Pulse oximetry Body height 2020-10-15 07:00:00 155 cm [facility] Body weight 2020-10-15 07:00:00 62.9 kg [facility] BMI 2020-10-15 07:00:00 26.18 kg/m2 [facility] Procedures Procedure Date / Time Performed Performing Clinician Dada maxine ECG 12-LEAD 2020-10-16 10:15:[address] [facility] W/PLT COUNT & AUTO 2020-10-16 10:00:00 [facility] POCT-GLUCOSE METER 2020-10-16 07:58:00 [facility] URINE CULTURE 2020-10-16 06:29:00 [facility] URINALYSIS W/ REFLEX 2020-10-16 06:29:00 [facility] URINE CULTURE [facility] POCT-GLUCOSE METER 2020-10-15 22:09:00 [facility] CBC W/PLT COUNT & AUTO 2020-10-15 19:27:00 [facility] POCT-GLUCOSE METER 2020-10-15 17:37:00 [facility] POCT-GLUCOSE METER 2020-10-15 12:05:00 Moses Almazan [facility] HEMOGLOBIN A1C 2020-10-15 04:19:00 Santosh [facility] TSH/FREE T4 IF INDICATED 2020-10-15 04:19:00 Santosh Vtdevora [facility] VITAMIN B12 AND FOLATE 2020-10-15 04:19:00 Santosh, [facility] TROPONIN I 2020-10-15 04:19:00 Santosh [facility] T4, FREE 2020-10-15 04:19:[address] [facility] [address] BRAIN WITHOUT IV 2020-10-15 04:03:00 Santosh [facility] BASIC METABOLIC PANEL 2020-10-15 02:40:00 Miguel Frost [facility] () [facility] MAGNESIUM 2020-10-15 02:40:00 Santosh [facility] PHOSPHORUS 2020-10-15 02:40:00 SantoshMiguel dang [facility] CBC W/PLT COUNT & AUTO 2020-10-15 02:40:[address] [facility] PROTHROMBIN TIME/INR 2020-10-15 02:40:00 [facility] APTT 2020-10-15 02:40:00 [facility] REPORT OF PROCEDURE - 2020-10-15 00:00:00 Provider, Default [facility] - ENDOSCOPY SCAN Scanning [facility] Plan of Care Planned Activity Planned Date Details Comments Source Future Scheduled 2021-03-[address] [facility] - Test 00:00:00 (Season Ended) [code = [facility] INFLUENZA VACCINE (Season Ended)] Future Scheduled 2020-07-[address] [facility] - Test 00:00:00 (12+) [code = Medical Center DEPRESSION SCREENING (12+)] Future Scheduled 2017-03-[address] [facility] - Test 00:00:00 WELLNESS (YEAR 2 or Medical Center FIRST YEAR if no IPPE) [code = MEDICARE ANNUAL WELLNESS (YEAR 2 or FIRST YEAR if no IPPE)] Future Scheduled 2016 PNEUMOCOCCAL 65+ YRS [facility] - Test 00:00:00 (1 of 1 - Medical Center [id number] PCV13) [code = PNEUMOCOCCAL 65+ YRS (1 of 1 - [id number]_Pkzbsps PCV13)] Future Scheduled 2001 SHINGLES VACCINES ([address] [facility] - Test 00:00:00 of 2) [code = SHINGLES Medic hi Center VACCINES (1 of 2)] Future Scheduled 1970 DTAP/TDAP/TD VACCINES [facility] - Test 00:00:00 (1 - Tdap) [code = Medical C enter DTAP/TDAP/TD VACCINES (1 - Tdap)] Future Scheduled 1969 HEPATITIS C SCREENING [facility] - Test 00:00:00 [code = HEPATITIS C Medical Center SCREENING] Future Scheduled [address] [facility] - Test 00:00[facility]00 [facility] breast (procedure) [code = 861819368] Future Scheduled [address] [facility] - Test 00:00:00 malignant neoplasm of Medica l Center colon (procedure) [code = 451230373] Encounters Start End Encounter Admission Attending Care Care Encounter Source Date/Time Date/Time Type Type Clinicians Facility Department ID 2020-07-07 2020-07-07 Orders Doctor CECILIO [id number] 00:00:00 00:00:00 Only Unassigned, EDUARDO [id number] [place] [facility] [id number] 2020-05-08 2020-05-08 Orders Doctor CECILIO [id number] 00:00:00 00:00:00 Only Unassigned, EDUARDO [id number] [place] [facility] [id number] [id number] 2020-04-16 2020-04-16 [facility] [id number] 15:13:25 23:59:00 Encounter [facility] [id number] [facility] 4.2.7.2.686 Specialti [id number] es [address] [place] 2020-04-16 2020-04-16 Office [facility] [id number] 14:32:19 14:47:19 Visit [facility] [id number] Surgical 4.2.7.2.686 Specialti [id number] es [address] [place] Results Test Description Test Time Test Comments Results Result [facility] e Comments ECG 12 lead 2020-09-29 Interface, External Ris [facility] In - 10/19/2020 8:56 Markos es - 08:56:41 AM CDTVentricular Rate Me dical 89 BPMAtrial Rate 89 Cent er BPMP-R Interval 148 msQRS Duration 76 msQ-T Interval 368 msQTC Calculation(Bazett) 447 msP [place] 71 degreesR [place] 76 degreesT [place] 45 degreesSinus rhythm with Premature supraventricular complexesMid anterior infarct , age undeterminedMild ST depression inferolateral leads + mild ST elevation in aVR consider ischemiaAbnormal ECGNo previous ECGs availableConfirmed by MD SHARON, KELLI ([id number]) on 10/19/2020 8:56:39 AM Urine culture 2020-10-17 14:53:00 Test Item Value Reference Range Interpretation Comme nts Result (test code = 6463-4) >100,000 col/mL [facility] + automated [id number] 10:17:00 Test Item Value Reference Range Interpretation Comments WBC (test code = 6690-2) 4.5 See_Comment [A utomated message] The system [employer] generated this result transmitted ref erence range: 3.5 - 10 .5 K/L. The refe rence range was not u sed to interpret this result as normal/abnor mal. RBC (test code = 789-8) 2.29 See_Comment L [Au tomated message] The system [employer] generated this result transmitted ref erence range: 3.93 - 5 .22 M/L. The refe rence range was not u sed to interpret this result as normal/abnor mal. MCHC (test code = 786-4) 31.1 See_Comment L [A utomated message] The system [employer] generated this result transmitted ref erence range: 32.2 - 3 5.5 GM/DL. The refe rence range was not u sed to interpret this result as normal/abnor mal. Hematocrit (test code = 25.1 % 34.1-44.9 L 4544-3) MCV (test code = 787-2) 109.6 fL 79.4-94.8 H MCH (test code = 785-6) 34.1 pg 25.6-32.2 H RDW (test code = 788-0) 12.5 % 11.7-14.4 Platelets (test code = 198 See_Comment [Aut omated message] 777-3) The system [employer] generated this result transmitted ref erence range: 150 - 45 0 K/CU MM. The referen ce range was not u sed to interpret this result as normal/abnor mal. MPV (test code = 9.8 fL 9.4-12.3 57138-1) nRBC (test code = 413) 0 See_Comment [Aut omated message] The system [employer] generated this result transmitted ref erence range: 0 - 0 /1 00 WBC. The refere nce range was not u sed to interpret this result as normal/abnor mal. % Neutros (test code = 67 % 429) % Lymphs (test code = 19 % 430) % Monos (test code = 8 % 431) % Eos (test code = 432) 6 % % Baso (test code = 437) 1 % # Neutros (test code = 2.97 See_Comment [Aut omated message] 670) The system [employer] generated this result transmitted ref erence range: 1.56 - 6 .13 K/L. The refe rence range was not u sed to interpret this result as normal/abnor mal. # Lymphs (test code = 0.85 See_Comment L [Auto mated message] 414) The system [employer] generated this result transmitted ref erence range: 1.18 - 3 .74 K/L. The refe rence range was not u sed to interpret this result as normal/abnor mal. # Monos (test code = 0.35 See_Comment [Autom ated message] 415) The system [employer] generated this result transmitted ref erence range: 0.24 - 0 .36 K/L. The refe rence range was not u sed to interpret this result as normal/abnor mal. # Eos (test code = 416) 0.25 See_Comment [Au tomated message] The system [employer] generated this result transmitted ref erence range: 0.04 - 0 .36 K/L. The refe rence range was not u sed to interpret this result as normal/abnor mal. # Baso (test code = 417) 0.03 See_Comment [A utomated message] The system [employer] generated this result transmitted ref erence range: 0.01 - 0 .08 K/L. The refe rence range was not u sed to interpret this result as normal/abnor mal. Immature 0 % 0-1 Granulocytes-Relative (test code = 2801) Lab Interpretation (test Abnormal code = 19091-6) [facility] W/PLT COUNT & AUTO [id number] 10:17:00 Test Item Value Reference Range Interpretation Comments WHITE BLOOD CELL COUNT (BEAKER) 4.5 K/ L 3.5-10.5 (test code = 775) RED BLOOD CELL COUNT (BEAKER) 2.29 M/ L 3.93-5.22 L (test code = 761) HEMOGLOBIN (BEAKER) (test code = 7.8 GM/DL 11.2-15.7 L 410) HEMATOCRIT (BEAKER) (test code = 25.1 % 34.1-44.9 L 411) MEAN CORPUSCULAR VOLUME (BEAKER) 109.6 fL 79.4-94.8 H (test code = 753) MEAN CORPUSCULAR HEMOGLOBIN 34.1 pg 25.6-32.2 H (BEAKER) (test code = 751) MEAN CORPUSCULAR HEMOGLOBIN CONC 31.1 GM/DL 32.2-35.5 L (BEAKER) (test code = 752) RED CELL DISTRIBUTION WIDTH 12.5 % 11.7-14.4 (BEAKER) (test code = 412) PLATELET COUNT (BEAKER) (test 198 K/CU MM 150-450 code = 756) MEAN PLATELET VOLUME (BEAKER) 9.8 fL 9.4-12.3 (test code = 754) NUCLEATED RED BLOOD CELLS 0 /100 WBC 0-0 (BEAKER) (test code = 413) NEUTROPHILS RELATIVE PERCENT 67 % (BEAKER) (test code = 429) LYMPHOCYTES RELATIVE PERCENT 19 % (BEAKER) (test code = 430) MONOCYTES RELATIVE PERCENT 8 % (BEAKER) (test code = 431) EOSINOPHILS RELATIVE PERCENT 6 % (BEAKER) (test code = 432) BASOPHILS RELATIVE PERCENT 1 % (BEAKER) (test code = 437) NEUTROPHILS ABSOLUTE COUNT 2.97 K/ L 1.56-6.13 (BEAKER) (test code = 670) LYMPHOCYTES ABSOLUTE COUNT 0.85 K/ L 1.18-3.74 L (BEAKER) (test code = 414) MONOCYTES ABSOLUTE COUNT (BEAKER) 0.35 K/ L 0.24-0.36 (test code = 415) EOSINOPHILS ABSOLUTE COUNT 0.25 K/ L 0.04-0.36 (BEAKER) (test code = 416) BASOPHILS ABSOLUTE COUNT (BEAKER) 0.03 K/ L 0.01-0.08 (test code = 417) IMMATURE GRANULOCYTES-RELATIVE 0 % 0-1 PERCENT (BEAKER) (test code = 2801) Urinalysis w/Microscopic + Reflex to [id number] 08:43:00 Test Item Value Reference Range Interpretation Comments Color, UA (test code Yellow = 5778-6) Clarity, UA (test Clear code = 5767-9) Specific [place], UA 1.014 1.001-1.035 (test code = 5811-5) pH, UA (test code = 6.5 5.0-8.0 5803-2) Protein, UA (test 20 mg/dL Negative A code = 77117-6) Glucose, UA (test Negative Negative code = 365) Ketones, UA (test Negative Negative code = 2514-8) Bilirubin, UA (test Negative Negative code = 63410-3) Blood, UA (test code Negative Negative = 15881-8) Nitrite, UA (test Negative Negative code = 5802-4) Leukocytes, UA (test Large Negative A code = 5799-2) Urobilinogen, UA 0.2 mg/dL 0.2-1 (test code = 43898-5) RBC, UA (test code = 3 See_Comment [Autom ated 69041-2) message] The system which generated this result transmit marco reference range : /HPF. The reference range was not used to interpret this result as normal/abnormal . WBC, UA (test code = 54 See_Comment [Autom ated 5821-4) message] The system which generated this result transmit marco reference range : /HPF. The reference range was not used to interpret this result as normal/abnormal . Squam Epithel, UA 3 See_Comment [Automate d (test code = 56248-8) messag e] The system which generated this result transmit marco reference range : /HPF. The reference range was not used to interpret this result as normal/abnormal . Specimen Source (test code = 2795) CHARLENE (test code = CHARLENE) Sales Marketing Coordinator ID - [auto]Sales Marketing Coordinator ID - tech Lab Interpretation Abnormal (test code = 84811-7) [facility] URINE [id number] 08:43:00 Test Item Value Reference Range Interpretation Comments COLOR (BEAKER) (test code = 470) Yellow CLARITY (BEAKER) (test code = 469) Clear SPECIFIC GRAVITY UA (BEAKER) (test 1.014 1.001-1.035 code = 468) PH UA (BEAKER) (test code = 467) 6.5 5.0-8.0 PROTEIN UA (BEAKER) (test code = 20 mg/dL Negative A 464) GLUCOSE UA (BEAKER) (test code = Negative Negative 365) KETONES UA (BEAKER) (test code = Negative Negative 371) BILIRUBIN UA (BEAKER) (test code = Negative Negative 462) BLOOD UA (BEAKER) (test code = 461) Negative Negative NITRITE UA (BEAKER) (test code = Negative Negative 465) LEUKOCYTE ESTERASE UA (BEAKER) Large Negative A (test code = 466) UROBILINOGEN UA (BEAKER) (test code 0.2 mg/dL 0.2-1.0 = 463) RBC UA (BEAKER) (test code = 519) 3 /HPF WBC UA (BEAKER) (test code = 520) 54 /HPF SQUAMOUS EPITHELIAL (BEAKER) (test 3 /HPF code = 516) SOURCE(BEAKER) (test code = 2795) Sales Marketing Coordinator ID - [auto]Sales Marketing Coordinator ID - techPOC-Glucose [id number] 08:16:00 Test Item Value Reference Range Interpretation Comments POC-Glucose Meter (test 94 mg/dL 70-110 : TE STED AT [facility] code = 1538) [address] [facility], [address]: Sales Marketing Coordinator/Techni omar ID = [id number] for SILVINOGGAI, LASHAEE REDA Lab Interpretation (test Normal code = 80912-9) [facility] [id number] 08:16:00 Test Item Value Reference Range Interpretation Comments POC-GLUCOSE METER 94 mg/dL 70-110 : TESTED A T [facility] 6720 (BEAKER) (test code [facility], = 1538) [address]: Sales Marketing Coordinator/Techni omar ID = [id number] for TSEG GAI, TSIGHEREDA POCT-GLUCOSE [id number] 22:23:00 Test Item Value Reference Range Interpretation Comments POC-GLUCOSE METER 116 mg/dL 70-110 H : [facility] (test code = [facility], 1538) [address]: Sales Marketing Coordinator/Techni omar ID = [id number] for DE NNIS, MIGUEL ANGEL CBC W/PLT COUNT & AUTO [id number] 19:34:00 Test Item Value Reference Range Interpretation Comments WHITE BLOOD CELL COUNT (BEAKER) 5.4 K/ L 3.5-10.5 (test code = 775) RED BLOOD CELL COUNT (BEAKER) 2.74 M/ L 3.93-5.22 L (test code = 761) HEMOGLOBIN (BEAKER) (test code = 9.5 GM/DL 11.2-15.7 L 410) HEMATOCRIT (BEAKER) (test code = 29.4 % 34.1-44.9 L 411) MEAN CORPUSCULAR VOLUME (BEAKER) 107.3 fL 79.4-94.8 H (test code = 753) MEAN CORPUSCULAR HEMOGLOBIN 34.7 pg 25.6-32.2 H (BEAKER) (test code = 751) MEAN CORPUSCULAR HEMOGLOBIN CONC 32.3 GM/DL 32.2-35.5 (BEAKER) (test code = 752) RED CELL DISTRIBUTION WIDTH 12.5 % 11.7-14.4 (BEAKER) (test code = 412) PLATELET COUNT (BEAKER) (test 233 K/CU MM 150-450 code = 756) MEAN PLATELET VOLUME (BEAKER) 9.5 fL 9.4-12.3 (test code = 754) NUCLEATED RED BLOOD CELLS 0 /100 WBC 0-0 (BEAKER) (test code = 413) NEUTROPHILS RELATIVE PERCENT 68 % (BEAKER) (test code = 429) LYMPHOCYTES RELATIVE PERCENT 17 % (BEAKER) (test code = 430) MONOCYTES RELATIVE PERCENT 9 % (BEAKER) (test code = 431) EOSINOPHILS RELATIVE PERCENT 5 % (BEAKER) (test code = 432) BASOPHILS RELATIVE PERCENT 1 % (BEAKER) (test code = 437) NEUTROPHILS ABSOLUTE COUNT 3.67 K/ L 1.56-6.13 (BEAKER) (test code = 670) LYMPHOCYTES ABSOLUTE COUNT 0.92 K/ L 1.18-3.74 L (BEAKER) (test code = 414) MONOCYTES ABSOLUTE COUNT (BEAKER) 0.49 K/ L 0.24-0.36 H (test code = 415) EOSINOPHILS ABSOLUTE COUNT 0.26 K/ L 0.04-0.36 (BEAKER) (test code = 416) BASOPHILS ABSOLUTE COUNT (BEAKER) 0.03 K/ L 0.01-0.08 (test code = 417) IMMATURE GRANULOCYTES-RELATIVE 0 % 0-1 PERCENT (BEAKER) (test code = 2801) POCT-GLUCOSE [id number] 17:49:00 Test Item Value Reference Range Interpretation Comments POC-GLUCOSE METER 118 mg/dL 70-110 H : TESTED A T [facility] 6720 (BEAKER) (test code = [facility], 1538) [address]: Sales Marketing Coordinator/Techni omar ID = [id number] for Nadege Ulrichria POCT-GLUCOSE [id number] 12:17:00 Test Item Value Reference Range Interpretation Comments POC-GLUCOSE METER 147 mg/dL 70-110 H : TESTED A T [facility] 6720 (BEAKER) (test code = [facility], 1538) [address]: Sales Marketing Coordinator/Techni omar ID = [id number] for St vicky Henny T4, [id number] 09:55:00 Test Item Value Reference Range Interpretation Comments Free T4 (test code = 0.72 ng/dL 0.7-1.48 3024-7) CHARLENE (test code = CHARLENE) Sales Marketing Coordinator ID - FLAKITO Lab Interpretation (test Normal code = 61350-7) [facility] HospitalVitamin B12 and [id number] 09:55:00 Test Item Value Reference Range Interpretation Comments Vitamin B12 (test 346 pg/mL 213-816 code = 2132-9) Folate (test code = 8.30 ng/mL See_Comment [Automa marco 2284-8) message] The system which generated this result transmit marco reference range : >=7.00. The reference range was not used to interpret this result as normal/abnormal . CHARLENE (test code = CHARLENE) Sales Marketing Coordinator ID - FLAKITO Lab Interpretation Normal (test code = 17464-3) [facility] HospitalT4, [id number] 09:55:00 Test Item Value Reference Range Interpretation Comments FREE T4 (BEAKER) (test code = 655) 0.72 ng/dL 0.70-1.48 Sales Marketing Coordinator ID - EMERSONVITAMIN B12 AND [id number] 09:55:00 Test Item Value Reference Range Interpretation Comments VITAMIN B12 (BEAKER) 346 pg/mL 213-816 (test code = 774) FOLATE (AKER) 8.30 ng/mL See_Comment [Automated message] (test code = 362) The system which generated this result transmitted ref erence range: >=7.00. The reference range was not used to interpr et this result as normal/abnormal . Sales Marketing Coordinator ID - FLAKITOHemoglobin [id number] 08:19:00 Test Item Value Reference Range Interpretation Comments Hemoglobin A1C (test code = 4548-4) 4.1 % 4.3-6.1 L Lab Interpretation (test code = Abnormal 14931-2) [facility] HospitalHEMOGLOBIN [id number] 08:19:00 Test Item Value Reference Range Interpretation Comments HEMOGLOBIN A1C (BEAKER) (test code = 4.1 % 4.3-6.1 L 368) TSH/Free T4 If [id number] 06:50:00 Test Item Value Reference Range Interpretation Comments TSH (test code = 8.034 See_Comment H [Automated 88079-4) message] The system which generated this result transmit marco reference range : 0.350 - 4.940 uIU/mL. The reference range was not used to interpret this result as normal/abnormal . CHARLENE (test code = CHARLENE) Sales Marketing Coordinator ID - LEN L Lab Interpretation Abnormal (test code = 00551-0) [facility] HospitalTSH/FREE T4 IF [id number] 06:50:00 Test Item Value Reference Range Interpretation Comments THYROID STIMULATING HORMONE 8.034 uIU/mL 0.350-4.940 H (BEAKER) (test code = 772) Sales Marketing Coordinator ID - LEN LTroponin [id number] 05:22:00 Test Item Value Reference Range Interpretation Comments Troponin I (test code = <0.01 0-0.03 93751-4) CHARLENE (test code = CHARLENE) Troponin I (TnI) levels must be interpreted in the context of the presenting symptoms and the clinical findings. Elevated TnI levels indicate myocardial damage, but are not specific for ischemic heart disease. Elevated TnI levels are seen in patients with other cardiac conditions (including myocarditis and congestive heart failure), and slight TnI elevations occur in patients with other conditions, including sepsis, renal failure, acidosis, acute neurological disease, and persistent tachyarrhythmia.Opera tor ID - JEREMY M Lab Interpretation (test Normal code = 00456-0) [facility] HospitalTRMORGANN [id number] 05:22:00 Test Item Value Reference Range Interpretation Comments TROPONIN I (FAMILIAAKER) (test code = 397) < ng/mL 0.00-0.03 Troponin I (TnI) levels must be interpreted in the context of the presenting symptoms and the clinical findings. Elevated TnI levels indicate myocardial damage, but are not specific for ischemic heart disease. Elevated TnI levels are seen in patients with other cardiac conditions (including myocarditis and congestive heart failure), and slight TnI elevations occur in patients with other conditions, including sepsis, renal failure, acidosis, acute neurological disease, and persistent tachyarrhythmia.Sales Marketing Coordinator ID - JEREMY MCT, BRAIN, WITHOUT [id number] 04:15:00Unlisted Reason for Exam - Click Yes and Enter Reason Below->NoPION[facility] : 1950 Sex: FFINAL REPORT CT Head without contrast CLINICAL HISTORY: Known subdural hematoma. TECHNIQUE: Contiguous axial images through the head without contrast. This exam was performed according to the departmental dose optimization program which includes automated exposure control, adjustment of the mA and/or kV according to the patient size, and/or use of an iterative reconstruction technique. COMPARISON: None FINDINGS: Thin subdural hematoma along the falx measuring up to 2.5 mmwithout significant mass effect on adjacent structures. No acute large territory infarction.. There is periventricular and subcortical white matter hypodensity which is nonspecific but compatible with chronic microvascular ischemic change. There are atherosclerotic calcifications of the intracranial circulation. There is generalized parenchymal volume loss without hydrocephalus. Large extensive the subgaleal hematoma over the right parietal calvarium. Basilar cisterns are patent. The skull is intact. Mucosal thickening in the ethmoid sinuses. Intraorbital contents are unremarkable. IMPRESSION:Thin subdural hematoma along the falx without significant mass effect on adjacent structures. Large extensive the subgaleal hematoma over the right parietal calvarium. Signed: Andrea Dubose Verified Date/Time: 10/15/2020 04:15:32 [facility] without IV [id number] 04:15:00Interface, External Ris In - 10/15/2020 4:[address] Head without contrast CLINICAL HISTORY: Known subdural hematoma. TECHNIQUE: Contiguous axial images through the head without contrast. This exam was performed according to the departmental dose optimization program which includes automated exposure control, adjustment of the mA and/or kV according to the patient size, and/or use of an iterative reconstruction technique. COMPARISON: None FINDINGS: Thin subduralhematoma along the falx measuring up to 2.5 mm without significant mass effect on adjacent structures. No acute large territory infarction.. There is periventricular and subcortical white matter hypodensity which is nonspecific but compatible with chronic microvascular ischemic change. There are atherosclerotic calcifications of the intracranial circulation. There is generalized parenchymal volume loss without hydrocephalus. Large extensive the subgaleal hematoma over the right parietal calvarium.Basilar cisterns are patent. The skull is intact. Mucosal thickening in the ethmoid sinuses. Intraor bital contents are unremarkable. IMPRESSION: Thin subdural hematoma along the falx without significant mass effect on adjacent structures. Large extensive the subgaleal hematoma over the right parietal calvarium. Signed: Andrea Dubose Verified Date/Time: 10/15/2020 04:15:32 [facility] Metabolic [id number] 03:13:00 Test Item Value Reference Range Interpretation Comments Sodium (test code = 134 meq/L 136-145 L 2951-2) Potassium (test code = 3.7 meq/L 3.5-5.1 2823-3) Chloride (test code = 105 meq/L 98-107 2075-0) CO2 (test code = 17 meq/L 22-29 L 2028-9) BUN (test code = 12 mg/dL 7-21 3094-0) Creatinine (test code 0.71 mg/dL 0.57-1.25 = 2160-0) Glucose (test code = 112 mg/dL 70-105 H 2345-7) Calcium (test code = 8.9 mg/dL 8.4-10.2 55981-6) EGFR (test code = 82 mL/min/1.73 sq [place] [address]-5) NOT ACCURATE CREATININE CLEARANCE IN PREDICTING GLOMERULAR FILTRATION RATE . ESTIMATED GFR I S NOT APPLICABLE FOR DIALYSIS PATIENTS. CHARLENE (test code = CHARLENE) Sales Marketing Coordinator ID - JEREMY M Lab Interpretation Abnormal (test code = 42260-5) [facility] 03[facility]13:00 Test Item Value Reference Range Interpretation Comments Magnesium (test code = 1.6 mg/dL 1.6-2.6 07786-9) CHARLENE (test code = CHARLENE) Sales Marketing Coordinator ID - JEREMY Lab Interpretation (test Normal code = 63905-6) [facility] 03:13:00 Test Item Value Reference Range Interpretation Comments Phosphorus (test code = 3.0 mg/dL 2.3-4.7 2777-1) CHARLENE (test code = CHARLENE) Sales Marketing Coordinator ID - JEREMY Lab Interpretation (test Normal code = 36468-8) [facility] 03:13:00 Test Item Value Reference Range Interpretation Comments PTT (test code = 85219-6) 25.9 See_Comment [ Automated message] The system [employer] generated this result transmitted ref erence range: 22.5 - 3 6.0 seconds. The re ference range was not u sed to interpret this result as normal/abnor mal. Lab Interpretation (test Normal code = 96949-9) [facility] Test Item Value Reference Range Interpretation Comments PARTIAL THROMBOPLASTIN TIME 25.9 seconds 22.5-36.0 (BEAKER) (test code = 760) [id number] 03:13:00 Test Item Value Reference Range Interpretation Comments MAGNESIUM (BEAKER) (test code = 1.6 mg/dL 1.6-2.6 627) Sales Marketing Coordinator ID - JEREMY MBASIC METABOLIC [id number] 03:13:00 Test Item Value Reference Range Interpretation Comments SODIUM (BEAKER) 134 meq/L 136-145 L (test code = 381) POTASSIUM (BEAKER) 3.7 meq/L 3.5-5.1 (test code = 379) CHLORIDE (BEAKER) 105 meq/L 98-107 (test code = 382) CO2 (BEAKER) (test 17 meq/L 22-29 L code = 355) BLOOD UREA NITROGEN 12 mg/dL 7-21 (BEAKER) (test code = 354) CREATININE (BEAKER) 0.71 mg/dL 0.57-1.25 (test code = 358) GLUCOSE RANDOM 112 mg/dL 70-105 H (BEAKER) (test code = 652) CALCIUM (BEAKER) 8.9 mg/dL 8.4-10.2 (test code = 697) EGFR (BEAKER) (test 82 mL/min/1.73 ESTIMA MARCO GFR IS code = 1092) sq m NOT ACCURATE CREATININE CLEARANCE IN PREDICTING GLOMERULAR FILTRATION RATE . ESTIMATED GFR I S NOT APPLICABLE FOR DIALYSIS PATIEN TS. Sales Marketing Coordinator ID - JEREMY [id number] 03:13:00 Test Item Value Reference Range Interpretation Comments PHOSPHORUS (BEAKER) (test code = 3.0 mg/dL 2.3-4.7 604) Sales Marketing Coordinator ID - JEREMY MProthrombin [id number] 03:12:00 Test Item Value Reference Interpretation Comments Range Protime (test code = 12.8 See_Comment [Autom ated 7252-2) message] The system which generated this result transmitted reference range : 11.9 - 14.2 seconds. The reference range was not used to interpret this result as normal/abnormal . INR (test code = 0.99 See_Comment [Automated 5581-6) message] The system which generated this result transmitted reference range : <=5.90. The reference range was not used to interpret this result as normal/abnormal . CHARLENE (test code = Effective 12/26/2018: CHARLENE) PT Reference Range ChangeNew: 11.9-14.2 Previous: 11.7-14.7 RECOMMENDED COUMADIN/WARFARIN INR THERAPY RANGESSTANDARD DOSE: 2.0-3.0 Includes: PROPHYLAXIS for venous thrombosis, systemic embolization; TREATMENT for venous thrombosis and/or pulmonary embolus.HIGH RISK: Target INR is 2.5-3.5 for patients wiht mechanical heart valves. Lab Interpretation Normal (test code = 45433-4) [facility] HospitalPROTHROMBIN TIME/[id number] 03:12:00 Test Item Value Reference Range Interpretation Comments PROTIME (BEAKER) 12.8 seconds 11.9-14.2 (test code = 759) INR (BEAKER) (test 0.99 See_Comment [Automat ed message] code = 370) The system [employer] generated this result transmitted ref erence range: <=5.90. The reference range was not used to int erpret this result as normal/abnormal . Effective 12/26/2018: PT Reference Range ChangeNew: 11.9-14.2 Previous: 11.7- 14.7RECOMMENDED COUMADIN/WARFARIN INR THERAPY RANGESSTANDARD DOSE: 2.0-3.0 Includes: PROPHYLAXIS for venous thrombosis, systemic embolization; TREATMENT for venous thrombosis and/or pulmonary embolus.HIGH RISK: Target INR is2.5-3.5 for patients wiht mechanical heart valves.CBC W/PLT COUNT & AUTO [id number] 02:51:00 Test Item Value Reference Range Interpretation Comments WHITE BLOOD CELL COUNT (BEAKER) 5.0 K/ L 3.5-10.5 (test code = 775) RED BLOOD CELL COUNT (BEAKER) 2.91 M/ L 3.93-5.22 L (test code = 761) HEMOGLOBIN (BEAKER) (test code = 9.9 GM/DL 11.2-15.7 L 410) HEMATOCRIT (BEAKER) (test code = 30.4 % 34.1-44.9 L 411) MEAN CORPUSCULAR VOLUME (BEAKER) 104.5 fL 79.4-94.8 H (test code = 753) MEAN CORPUSCULAR HEMOGLOBIN 34.0 pg 25.6-32.2 H (BEAKER) (test code = 751) MEAN CORPUSCULAR HEMOGLOBIN CONC 32.6 GM/DL 32.2-35.5 (BEAKER) (test code = 752) RED CELL DISTRIBUTION WIDTH 12.1 % 11.7-14.4 (BEAKER) (test code = 412) PLATELET COUNT (BEAKER) (test 253 K/CU MM 150-450 code = 756) MEAN PLATELET VOLUME (BEAKER) 9.1 fL 9.4-12.3 L (test code = 754) NUCLEATED RED BLOOD CELLS 0 /100 WBC 0-0 (BEAKER) (test code = 413) NEUTROPHILS RELATIVE PERCENT 67 % (BEAKER) (test code = 429) LYMPHOCYTES RELATIVE PERCENT 24 % (BEAKER) (test code = 430) MONOCYTES RELATIVE PERCENT 8 % (BEAKER) (test code = 431) EOSINOPHILS RELATIVE PERCENT 1 % (BEAKER) (test code = 432) BASOPHILS RELATIVE PERCENT 1 % (BEAKER) (test code = 437) NEUTROPHILS ABSOLUTE COUNT 3.34 K/ L 1.56-6.13 (BEAKER) (test code = 670) LYMPHOCYTES ABSOLUTE COUNT 1.17 K/ L 1.18-3.74 L (BEAKER) (test code = 414) MONOCYTES ABSOLUTE COUNT (BEAKER) 0.39 K/ L 0.24-0.36 H (test code = 415) EOSINOPHILS ABSOLUTE COUNT 0.03 K/ L 0.04-0.36 L (BEAKER) (test code = 416) BASOPHILS ABSOLUTE COUNT (BEAKER) 0.04 K/ L 0.01-0.08 (test code = 417) IMMATURE GRANULOCYTES-RELATIVE 0 % 0-1 PERCENT (BEAKER) (test code = 2801) [id number] 00:00:00Ordered by an unspecified provider.[facility]
--- NOTE | 2020-11-01 13:56 | RAD REPORT ---
EXAM DESCRIPTION: CT - Head Brain Wo Cont - 11/01/2020 1:49 pm CLINICAL HISTORY: wound ;Trauma Trauma, head injury COMPARISON: Head Brain Wo Cont dated 05/03/2020; Gastric Emptying Study dated 01/05/2019; Head C Spine Mpr Wo Con dated 10/14/2020 TECHNIQUE: All CT scans are performed using dose optimization technique as appropriate and may inclu de automated exposure control or mA/KV adjustment according to patient size. FINDINGS: No intracranial hemorrhage, hydrocephalus or extra-axial fluid collection.Mild generalized brain atrophy.No areas of brain edema or evidence of midline shift. Small right posterior scalp hira emmy. The paranasal sinuses and mastoids are clear. The calvarium is intact. Right vertebral artery is calc ified. IMPRESSION: No acute intracranial abnormality.
--- NOTE | 2020-11-01 14:03 | ER ---
Nurse's Notes [facility] Name: Carrol Dickens Age: 70 yrs Sex: Female : 1950 Arrival Date: 11/01/2020 Time: 12:28 Bed 16 Private MD: Diagnosis: Open wound of scalp Presentation: 11/01 12:43 Chief complaint: Patient states: "I was her on the September. I had a head injury jd3 with a hematoma. I am still having some bleeding and oozing on that wound on the back of my head. I am starting to having dizziness now.". Coronavirus screen: At this time, the client does not indicate any symptoms associated with coronavirus-19. Ebola Screen: Patient negative for fever greater than or equal to 101.5 degrees Fahrenheit, and additional compatible Ebola Virus Disease symptoms. Initial Sepsis Screen: Does the patient meet any 2 criteria? No. Patient's initial sepsis screen is negative. Does the patient have a suspected source of infection? No. Patient's initial sepsis screen is negative. Risk Assessment: Do you want to hurt yourself or someone else? Patient reports no desire to harm self or others. Onset of symptoms was October 22, 2020. 12:43 Method Of Arrival: Ambulatory jd3 12:43 Acuity: SHIN 3 jd3 12:46 Note Tylenol taken at 1000. jd3 Historical: - Allergies: 12:47 sodium bisulfite; jd3 - PMHx: 12:47 Depression; Anxiety; GERD; UTI; jd3 - PSHx: 12:47 back; ; feet; Carpal Tunnel Repair; Cholecystectomy; jd3 - Immunization history:: Adult Immunizations up to date. - Social history:: Smoking status: Patient denies any tobacco usage or history of. Patient/guardian denies using alcohol, street drugs, The patient lives with family. - Family history:: not pertinent. Screenin:28 Abuse screen: Denies threats or abuse. Denies injuries from another. Nutritional ca1 screening: No deficits noted. Tuberculosis screening: No symptoms or risk factors identified. Fall Risk Fall in past 12 months (25 points). Total Hartmann Fall Scale indicates No Risk (0-24 pts). Assessment: 13:15 General: Appears in no apparent distress. comfortable, Behavior is calm, cooperative, ca1 appropriate for age. Pain: Complains of pain in occipital area. Neuro: Level of Consciousness is awake, alert, obeys commands, Oriented to person, place, time, situation. Derm: Skin is healthy with good turgor, Skin is pink, warm \\T\\ dry. 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 Lac was not repaired, pt came to the ER 24hrs after fall. 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 Now, swollen, red, tender and draining greenish discharge. Musculoskeletal: Circulation, motion, and sensation intact. Capillary refill < 3 seconds. 14:03 Reassessment: Patient appears in no apparent distress at this time. Patient is alert, ca1 oriented x 3, equal unlabored respirations, skin warm/dry/pink. Vital Signs: 12:45 BP 157 / 87; Pulse 47; Resp 17 S; Temp 98.5(TE); Pulse Ox 98% on R/A; Weight 61.23 kg jd3 (R); Height 5 ft. 2 in. (157.48 cm) (R); Pain 7/10; 13:15 BP 141 / 83; Pulse 106; Resp 18 S; Pulse Ox 96% on R/A; ca1 14:09 BP 138 / 85; Pulse 99; Resp 18 S; Pulse Ox 96% on R/A; ca1 12:45 Body Mass Index 24.69 (61.23 kg, 157.48 cm) jd3 ED Course: 12:28 Patient arrived in ED. as 12:45 Triage completed. jd3 12:45 Arm band placed on. jd3 13:15 Patient has correct armband on for positive identification. Bed in low position. Call ca1 light in reach. Side rails up X2. Pulse ox on. NIBP on. Door closed. Noise minimized. Lights dimmed. Warm blanket given. 13:20 Ericka Lubin MD is Attending Physician. ma2 13:24 Nona Elliott RN is Primary Nurse. ca1 13:50 CT Head Brain wo Cont In Process Unspecified. EDMS 14:00 Wound care: to laceration located on occipital area was cleaned with Betadine, dressed ca1 with Neosporin, 4X4s, Patient tolerated. 14:10 No provider procedures requiring assistance completed. Patient did not have IV access ca1 during this emergency room visit. Administered Medications: 14:03 Drug: Bactrim (160 mg-800 mg (DS) 1 tablet Route: PO; ca1 14:25 Follow up: Response: No adverse reaction ca1 14:15 Drug: [place] (HYDROcodone-acetaminophen) 5 mg-325 mg 2 tabs {Note: rass 0.} Route: PO; ca1 14:25 Follow up: Response: Medication administered at discharge. ca1 Outcome: 14: Discharge ordered by . manoj 14: Discharged to home ambulatory, with significant other. ca1 14: Condition: stable 14: Discharge instructions given to patient, Instructed on discharge instructions, follow up and referral plans. medication usage, wound care, Demonstrated understanding of instructions, follow-up care, medications, wound care, Prescriptions given X 3. 14:26 Patient left the ED. ca1 Signatures: Dispatcher [employer] EDShelly Martinez Jonathon, RN RN Ericka Quevedo MD MD ma2 Acob, Cheryl, RN RN ca1 Corrections: (The following items were deleted from the chart) 12:45 12:43 Onset of symptoms was October 29, 2020 pippa das
--- NOTE | 2020-11-01 14:04 | EDPHYS ---
Physician Documentation [facility] Name: Carrol Dickens Age: 70 yrs Sex: Female : 1950 Arrival Date: 11/01/2020 Time: 12:28 Bed 16 Private MD: ED Physician Ericka Lubin HPI: 11/01 14:01 This 70 yrs old Female presents to ER via Ambulatory with complaints of Wound ma2 Check. 14:01 Patient presents to ED for recheck of: cellulitis. The affected area is on the scalp. ma2 Progress: The patient reports no change in. The patient has not experienced similar symptoms in the past. Historical: - Allergies: 12:47 sodium bisulfite; jd3 - PMHx: 12:47 Depression; Anxiety; GERD; UTI; jd3 - PSHx: 12:47 back; ; feet; Carpal Tunnel Repair; Cholecystectomy; jd3 - Immunization history:: Adult Immunizations up to date. - Social history:: Smoking status: Patient denies any tobacco usage or history of. Patient/guardian denies using alcohol, street drugs, The patient lives with family. - Family history:: not pertinent. ROS: 14:01 Constitutional: Negative for fever, chills, and weight loss. ma2 14:01 All other systems are negative. Exam: 14:01 Constitutional: This is a well developed, well nourished patient who is awake, alert, ma2 and in no acute distress. Head/Face: there is posterior scalp wound 1x1 cm with induration around, no cellulitis or swelling non tender, there is granulation tissue. Normocephalic, atraumatic. Eyes: Pupils equal round and reactive to light, extra-ocular motions intact. Lids and lashes normal. Conjunctiva and sclera are non-icteric and not injected. Cornea within normal limits. Periorbital areas with no swelling, redness, or edema. ENT: Nares patent. No nasal discharge, no septal abnormalities noted. Tympanic membranes are normal and external auditory canals are clear. Oropharynx with no redness, swelling, or masses, exudates, or evidence of obstruction, uvula midline. Mucous membranes moist. Neck: Trachea midline, no thyromegaly or masses palpated, and no cervical lymphadenopathy. Supple, full range of motion without nuchal rigidity, or vertebral point tenderness. No Meningismus. Chest/axilla: Normal chest wall appearance and motion. Nontender with no deformity. No lesions are appreciated. Cardiovascular: Regular rate and rhythm with a normal S1 and S2. No gallops, murmurs, or rubs. Normal PMI, no JVD. No pulse deficits. Respiratory: Lungs have equal breath sounds bilaterally, clear to auscultation and percussion. No rales, rhonchi or wheezes noted. No increased work of breathing, no retractions or nasal flaring. Abdomen/GI: Soft, non-tender, with normal bowel sounds. No distension or tympany. No guarding or rebound. No evidence of tenderness throughout. MS/ Extremity: Pulses equal, no cyanosis. Neurovascular intact. Full, normal range of motion. Neuro: Awake and alert, GCS 15, oriented to person, place, time, and situation. Cranial nerves II-XII grossly intact. Motor strength 5/5 in all extremities. Sensory grossly intact. Cerebellar exam normal. Normal gait. Vital Signs: 12:45 BP 157 / 87; Pulse 47; Resp 17 S; Temp 98.5(TE); Pulse Ox 98% on R/A; Weight 61.23 kg jd3 (R); Height 5 ft. 2 in. (157.48 cm) (R); Pain 7/10; 13:15 BP 141 / 83; Pulse 106; Resp 18 S; Pulse Ox 96% on R/A; ca1 14:09 BP 138 / 85; Pulse 99; Resp 18 S; Pulse Ox 96% on R/A; ca1 12:45 Body Mass Index 24.69 (61.23 kg, 157.48 cm) jd3 MDM: 13:20 Patient medically screened. ma2 14:01 Differential diagnosis: cellulitis. Differential diagnosis: unlikely abscess vs head ma2 bleeding. Data reviewed: vital signs, nurses notes. Counseling: I had a detailed discussion with the patient and/or guardian regarding: the historical points, exam findings, and any diagnostic results supporting the discharge/admit diagnosis, the presence of at least one elevated blood pressure reading (>120/80) during this emergency department visit, the need for outpatient follow up. Response to treatment: the patient's symptoms have markedly improved after treatment. 11/01 13:25 Order name: CT Head Brain wo Cont; Complete Time: 14:00 ma2 Administered Medications: 14:03 Drug: Bactrim (160 mg-800 mg (DS) 1 tablet Route: PO; ca1 14:25 Follow up: Response: No adverse reaction ca1 14:15 Drug: [place] (HYDROcodone-acetaminophen) 5 mg-325 mg 2 tabs {Note: rass 0.} Route: PO; ca1 14:25 Follow up: Response: Medication administered at discharge. ca1 Disposition: 11/01/20 14:03 Discharged to Home. Impression: Open wound of scalp. - Condition is Stable. - Discharge Instructions: Wound Care. - Prescriptions for bacitracin zinc - apply 1 application by TOPICAL route 2-3 times daily on scalp wound; 1 bottle. Diclofenac Sodium 75 mg Oral Tablet Sustained Release - take 1 tablet by ORAL route 2 times per day; 30 tablet. Bactrim DS 800- 160 mg Oral Tablet - take 1 tablet by ORAL route every 12 hours for 10 days; 20 tablet. - Medication Reconciliation Form, Thank You Letter, Antibiotic Education, Prescription Opioid Use form. - Follow up: Private Physician; When: Tomorrow; Reason: If symptoms return, Continuance of care. Signatures: Dispatcher [employer] EDGabo Min RN RN Ericka Quevedo MD MD ma2 Nona Elliott RN RN ca1 Corrections: (The following items were deleted from the chart) 14:26 14:03 11/01/2020 14:03 Discharged to Home. Impression: Open wound of scalp. Condition ca1 is Stable. Prescriptions for bacitracin zinc - apply 1 application by TOPICAL route 2-3 times daily on scalp wound; 1 bottle, Diclofenac Sodium 75 mg Oral Tablet Sustained Release - take 1 tablet by ORAL route 2 times per day; 30 tablet, Bactrim DS 800-160 mg Oral Tablet - take 1 tablet by ORAL route every 12 hours for 10 days; 20 tablet. and Forms are Medication Reconciliation Form, Thank You Letter, Antibiotic Education, Prescription Opioid Use. Follow up: Private Physician; When: Tomorrow; Reason: If symptoms return, Continuance of care. ma2
[2020-11-01] MEDS ORDERED: SMZ./TMP. 800/160 MG TABLET ONE (14:16)
[2020-11-01] MEDS ORDERED: HYDROCODONE/APAP 5/325 MG TAB ONE (14:38)
== END 2020-11-01 14:26 | disposition home or self-care (01) ==
LOC: ER 12:25
DX: S01.01XD Laceration without foreign body of scalp, subsequent encounter (principal)
CPT/HCPCS: 70450; 99284

== ENCOUNTER 2021-01-17 20:32 | Emergency (ER) | payer OTHER ==
--- OUTSIDE RECORDS SUMMARY | 2021-01-17 20:36 | XMS REPORT | Continuity of Care Document ---
:1950 Author Organization [facility] t Address [address] [place] [address] Care Team Providers Name Role Phone Pcp Primary Care Physician Unavailable Piyush ADLER Attending Clinician Unavailable Carlos MONTIEL, ITyree Attending Clinician Paulette Almazan MD Attending Clinician Namita MONTIEL Attending Clinician Doctor Unassigned, Name Attending Clinician Unavailable Sam MONTIEL, L Attending Clinician Piyush ADLER Admitting Clinician Unavailable Payers Payer Name Policy Type Policy Effective Date Expiration Date Sour ce Number MEDICAREMEDICARE A [id number] 2016 SAEID Velez [id number] 2015-P 00:00:00 - [facility] Problems Condition Condition Condition Status Onset Resolution Last Treating Co mments Source Name Details Category Date Date Treatment Clinician Date SDH SDH Disease Active [facility] (subdural (subdural 3-18 [facility] - hematoma) hematoma) 00:00: Medi francisco javier 00 Center Essential Essential Disease Active [facility] hypertensi hypertensi 3-18 Christine kes - on on 00:00: Medical Center GERD GERD Disease Active [facility] (gastroeso (gastroeso 3-18 Christine kes - phageal phageal 00:00: Medical reflux reflux 00 [place] disease) disease) Allergies, Adverse Reactions, Alerts Allergy Allergy Status Severity Reaction(s) Onset Inactive Treating Comm ents Source Name Type Date Date Clinician Pauly Abbasii Active [facility] Bisulfit ty to 10-15 [facility] - e adverse 00:00: Medical reaction 00 [place] s Social History Social Habit Start Date Stop Date Quantity Comments Source Sex Assigned At [facility] Medications Ordered Filled Start Stop Current Ordering Indication Dosage Frequency Signature Comments Components Source Medication Medication Date Date Medication? Clinician (SIG) Name Name venlafaxine 2021- No 75mg Q.5D Take [address] [facility] (EFFEXOR-XR 10-16 capsule Luke s - ) 75 MG 24 00:00: 23:59 (75 mg Medi francisco javier hr capsule 00 :00 total) by Cent er mouth 2 (two) times daily. acetaminoph 2020- No 500mg Take [address] en 10-16 tablet [facility]ukes - (TYLENOL) 00:00: 23:59 (500 mg Medi francisco javier 500 MG 00 :00 total) by Center tablet mouth every 6 (six) hours as needed for Pain for up to 10 days. LORazepam 2020- No .5mg Q.[id number] Take [address] [facility] (ATIVAN) 10-16 [id number] tablet Christine kes - 0.5 MG 00:00: [...] for 7 days. LORazepam 2020- No .5mg Q.45329059 Take [address] [facility] (ATIVAN) 10-16 [id number] tablet Christine kes - 0.5 MG 00:00: [...] Source Systolic blood 2020-10-16 11:41:00 159 mm[Hg] [facility] Diastolic blood 2020-10-16 11:41:00 72 mm[Hg] [facility] S t [facility] Heart rate 2020-10-16 11:41:00 88 /min [facility] Body temperature 2020-10-16 11:41:00 37.17 Verónica [facility] Respiratory rate 2020-10-16 11:41:00 18 /min [facility] Oxygen saturation in 2020-10-16 11:41:00 100 /min [facility] Arterial blood by Medical Ce nter Pulse oximetry Body height 2020-10-15 07:00:00 155 cm [facility] Body weight 2020-10-15 07:00:00 62.9 kg [facility] BMI 2020-10-15 07:00:00 26.18 kg/m2 [facility] Procedures Procedure Date / Time Performed Performing Clinician [facility] e ECG 12-LEAD 2020-10-16 10:15:12 [facility] CBC W/PLT COUNT & AUTO 2020-10-16 10:00:00 [facility] POCT-GLUCOSE METER 2020-10-16 07:58:00 [facility] URINE CULTURE 2020-10-16 06:29:00 [facility] URINALYSIS W/ REFLEX 2020-10-16 06:29:00 [facility] URINE CULTURE [facility] POCT-GLUCOSE METER 2020-10-15 22:09:00 [facility] CBC W/PLT COUNT & AUTO 2020-10-15 19:27:00 [facility] POCT-GLUCOSE METER 2020-10-15 17:37:00 [facility] POCT-GLUCOSE METER 2020-10-15 12:05:[address] [facility] HEMOGLOBIN A1C 2020-10-15 04:19:00 Santosh, [facility] TSH/FREE T4 IF INDICATED 2020-10-15 04:19:00 Miguel Frost [facility] VITAMIN B12 AND FOLATE 2020-10-15 04:19:00 Santosh, [facility] TROPONIN I 2020-10-15 04:19:00 Santosh [facility] T4, FREE 2020-10-15 04:19:[address] Santosh [facility] CT BRAIN WITHOUT IV 2020-10-15 04:03:00 Santosh [facility] BASIC METABOLIC PANEL 2020-10-15 02:40:00 Miguel Frost [facility] () [facility] MAGNESIUM 2020-10-15 02:40:00 Santosh [facility] PHOSPHORUS 2020-10-15 02:40:00 Miguel Frost [facility] CBC W/PLT COUNT & AUTO 2020-10-15 02:40:00 [facility] PROTHROMBIN TIME/INR 2020-10-15 02:40:00 Santosh, [facility] APTT 2020-10-15 02:40:00 [facility] REPORT OF PROCEDURE - 2020-10-15 00:00:00 Provider, Default [facility] ENDOSCOPY SCAN Scanning [facility] Plan of Care Planned Activity Planned Date Details Comments Source Future Scheduled 2021-03-[address] [facility] - Test 00:00:00 (Season Ended) [code = [facility] INFLUENZA VACCINE (Season Ended)] Future Scheduled 2020-07-31 [...] 00:00:00 (1 of 1 - Medical Center [id number] PCV13) [code = PNEUMOCOCCAL 65+ YRS (1 of 1 - [id number] PCV13)] Future Scheduled 2001 SHINGLES VACCINES ([address] [facility] - Test 00:00:00 of 2) [code = SHINGLES [facility] VACCINES (1 of 2)] Future Scheduled [...] es - Test 00:00:00 [facility] breast (procedure) [code = 743719726] Future Scheduled [address] [facility] - Test 00:00:00 malignant neoplasm of Medica l [place] colon (procedure) [code = 397161012] Encounters Start End Encounter Admission Attending Care Care Encounter Source Date/Time Date/Time Type Type Clinicians Facility Department ID 2021-01-11 2021-01-11 [id number]00 Agustin - Luana l Outpat[facility] ent Clinics 2020-07-07 2020-07-07 Orders Doctor CECILIO [id number] 00:00:00 00:00:00 Only Unassigned, EDUARDO 350.1.13.10 [place] [facility] 4.2.7.2.686 [id number] [id number] 2020-05-08 2020-05-08 Orders Doctor CECILIO [id number] 00:00:00 00:00:00 Only Unassigned, EDUARDO 350.1.13.10 [place] [facility] 4.2.7.2.686 [id number] [id number] 2020-04-16 2020-04-16 [facility] [id number] 15:13:25 23:59:00 Encounter Manolo Dejesus [facility] 350.1.13.10 Surgical 4.2.7.2.686 Specialti [id number] es [address] 2020-04-16 2020-04-16 Office [facility] [id number] 14:32:19 14:47:19 Visit Manolo Dejesus [facility] 350.1.13.10 Surgical 4.2.7.2.686 Specialti [id number] es [address] Results Test Description Test Time Test Comments Results Result [facility] e Comments ECG 12 lead 2020-09-29 Interface, External Ris [facility] In - 10/19/2020 8:56 Markos es - 08:56:41 AM CDTVentricular Rate Me dical 89 BPMAtrial Rate 89 Cent er BPMP-R Interval 148 msQRS Duration 76 msQ-T Interval 368 msQTC Calculation([place]) 447 msP [place] 71 degreesR [place] 76 degreesT [place] 45 degreesSinus rhythm with Premature supraventricular complexesMid anterior infarct , age undeterminedMild ST depression inferolateral leads + mild ST elevation in aVR consider ischemiaAbnormal ECGNo previous ECGs availableConfirmed by MD SHARON, KELLI ([id number]) on 10/19/2020 8:56:39 AM Urine culture 2020-10-17 14:53:00 Test Item Value Reference Range Interpretation Comme nts Result (test code = 6463-4) >100,000 col/mL skin [facility] + automated [id number] 10:17:00 Test Item Value Reference Range Interpretation Comments WBC (test code = 6690-2) 4.5 See_Comment [A utomated message] The system [employer] generated this result transmitted ref erence range: 3.5 - 10 .5 K/L. The refe rence range was not u sed to interpret this result as normal/abnor mal. RBC (test code = 789-8) 2.29 See_Comment L [Au tomated message] The system [employer] generated this result transmitted ref erence range: 3.93 - 5 .22 M/L. The refe rence range was not u sed to interpret this result as normal/abnor mal. MCHC (test code = 786-4) 31.1 See_Comment L [A utomated message] The system [employer] generated this result transmitted ref erence range: [...] code = 198 See_Comment [Aut omated message] 687-3) The system [employer] generated this result transmitted ref erence range: 150 - 45 0 K/CU MM. The referen ce range was not u sed to interpret this result as normal/abnor mal. MPV (test code = 9.8 fL 9.4-12.3 17114-1) nRBC (test code = 413) 0 See_Comment [Aut omated message] The system [employer] generated this result transmitted ref erence range: [...] See_Comment [Aut omated message] 670) The system [employer] generated this result transmitted ref erence range: 1.56 - 6 .13 K/L. The refe rence range was not u sed to interpret this result as normal/abnor mal. # Lymphs (test code = 0.85 See_Comment L [Auto mated message] 414) The system [employer] generated this result transmitted ref erence range: 1.18 - 3 .74 K/L. The refe rence range was not u sed to interpret this result as normal/abnor mal. # Monos (test code = 0.35 See_Comment [Autom ated message] 415) The system [employer] generated this result transmitted ref erence range: 0.24 - 0 .36 K/L. The refe rence range was not u sed to interpret this result as normal/abnor mal. # Eos (test code = 416) 0.25 See_Comment [Au tomated message] The system [employer] generated this result transmitted ref erence range: 0.04 - 0 .36 K/L. The refe rence range was not u sed to interpret this result as normal/abnor mal. # Baso (test code = 417) 0.03 See_Comment [A utomated message] The system [employer] generated this result transmitted ref erence range: 0.01 - 0 .08 K/L. The refe rence range was not u sed to interpret this result as normal/abnor mal. Immature 0 % 0-1 Granulocytes-Relative (test code = 2801) Lab Interpretation (test Abnormal code = 96969-8) [facility] W/PLT COUNT & AUTO [id number] 10:17:00 Test Item Value Reference Range Interpretation [...] = 2801) Urinalysis w/Microscopic + Reflex to [id number] 08:43:00 Test Item Value Reference Range Interpretation Comments Color, UA (test code Yellow = 5778-6) Clarity, UA (test Clear code = 5767-9) Specific Oley, UA 1.014 1.001-1.035 (test code = 5811-5) pH, UA (test code = 6.5 5.0-8.0 5803-2) Protein, UA (test 20 mg/dL Negative A code = 43434-6) Glucose, UA (test Negative Negative code = 365) Ketones, UA (test Negative Negative code = 2514-8) Bilirubin, UA (test Negative Negative code = 84824-8) Blood, UA (test code Negative Negative = 40728-6) Nitrite, UA (test Negative Negative code = 5802-4) Leukocytes, UA (test Large Negative A code = 5799-2) Urobilinogen, UA 0.2 mg/dL 0.2-1 (test code = 45544-3) RBC, UA (test code = 3 See_Comment [Autom ated 01551-4) message] The system which generated this result [...] 3 See_Comment [Automate d (test code = 71512-4) messag e] The system which generated this result transmit marco reference range : /HPF. The reference range was not used to interpret this result as normal/abnormal . Specimen Source (test code = 2795) CHARLENE (test code = CHARLENE) Ornamental [employer]aste[employer] Helper ID - [auto]Ornamental Plasterer Helper ID - tech Lab Interpretation Abnormal (test code = 23500-4) [facility] REFLEX URINE [id number] 08:43:00 Test Item Value Reference Range Interpretation [...] = 516) SOURCE(BEAKER) (test code = 2795) Ornamental [employer]asterer Helper ID - [auto]Ornamental Plasterer Helper ID - techPOC-Glucose [id number] 08:16:00 Test Item Value Reference Range Interpretation Comments POC-Glucose Meter (test 94 mg/dL 70-110 : TE STED AT [facility] code = 1538) [address] [facility], [address]: Ornamental Plasterer Helper/Techni omar ID = [id number] for SILVINOGGJOSE CUATE REDA Lab Interpretation (test Normal code = 82115-5) [facility] CenterPO[facility]SE [id number] 08:16:00 Test Item Value Reference Range Interpretation Comments POC-GLUCOSE METER 94 mg/dL 70-110 : TESTED A T [facility] 6720 (BEAKER) (test code [facility], = 1538) [address]: Ornamental Plasterer Helper/Techni omar ID = [id number] for TSEG GAI, LASHAEEREDA POCT-GLUCOSE [id number] 22:23:00 Test Item Value Reference Range Interpretation Comments POC-GLUCOSE METER 116 mg/dL 70-110 H : TESTED A T [facility] 6720 (BEAKER) (test code = [place]GIE [place], 1538) [address]: Ornamental Plasterer Helper/Techni omar ID = [id number] for DE NNIS, MIGUEL ANGEL CBC W/PLT COUNT & AUTO [id number] 19:34:00 Test Item Value Reference Range Interpretation [...] PERCENT (BEAKER) (test code = 2801) POCT-GLUCOSE [id number] 17:49:00 Test Item Value Reference Range Interpretation Comments POC-GLUCOSE METER 118 mg/dL 70-110 H : TESTED A T [facility] 6720 (BEAKER) (test code = [facility], 1538) [address]: Ornamental Plasterer Helper/Techni omar ID = [id number] for Henny Ulrich POCT-GLUCOSE [id number] 12:17:00 Test Item Value Reference Range Interpretation Comments POC-GLUCOSE METER 147 mg/dL 70-110 H : TESTED A T [facility] 6720 (BEAKER) (test code = [facility] [employer] [facility], 1538) [address]: Ornamental Plasterer Helper/Techni omar ID = [id number] for Henny Ulrich T4, [id number] 09:55:00 Test Item Value Reference Range Interpretation Comments Free T4 (test code = 0.72 ng/dL 0.7-1.48 3024-7) CHARLENE (test code = CHARLENE) Ornamental Plasterer Helper ID - Collective Lab Interpretation (test Normal code = 73907-0) [facility] CenterVitamin B12 and [id number] 09:55:00 Test Item Value Reference Range Interpretation Comments Vitamin B12 (test 346 pg/mL 213-816 code = 2132-9) Folate (test code = 8.30 ng/mL See_Comment [Automa marco 2284-8) message] The system which generated this result transmit marco reference range : >=7.00. The reference range was not used to interpret this result as normal/abnormal . CHARLENE (test code = CHARLENE) Ornamental Plasterer Helper ID - FLAKITO Lab Interpretation Normal (test code = 58190-7) [facility] CenterT4, [id number] 09:55:00 Test Item Value Reference Range Interpretation Comments FREE T4 (BEAKER) (test code = 655) 0.72 ng/dL 0.70-1.48 Ornamental Plasterer Helper ID - FLAKITOVITAMIN B12 AND [id number] 09:55:00 Test Item Value Reference Range Interpretation Comments VITAMIN B12 (BEAKER) 346 pg/mL 213-816 (test code = 774) FOLATE (BEAKER) 8.30 ng/mL See_Comment [Automated message] (test code = 362) The system which generated this result transmitted ref erence range: >=7.00. The reference range was not used to interpr et this result as normal/abnormal . Ornamental Plasterer Helper ID - FLAKITOHemoglobin [id number] 08:19:00 Test Item Value Reference Range Interpretation Comments Hemoglobin A1C (test code = 4548-4) 4.1 % 4.3-6.1 L Lab Interpretation (test code = Abnormal 49605-2) [facility] CenterHEMOGLOBIN [id number] 08:19:00 Test Item Value Reference Range Interpretation Comments HEMOGLOBIN A1C (BEAKER) (test code = 4.1 % 4.3-6.1 L 368) TSH/Free T4 If [id number] 06:50:00 Test Item Value Reference Range Interpretation Comments TSH (test code = 8.034 See_Comment H [Automated 37169-8) message] The system which generated this result transmit marco reference range : 0.350 - 4.940 uIU/mL. The reference range was not used to interpret this result as normal/abnormal . CHARLENE (test code = CHARLENE) Ornamental Plasterer Helper ID - LEN L Lab Interpretation Abnormal (test code = 95743-9) [facility] CenterTSH/FREE T4 IF [id number] 06:50:00 Test Item Value Reference Range Interpretation Comments THYROID STIMULATING HORMONE 8.034 uIU/mL 0.350-4.940 H (BEAKER) (test code = 772) Ornamental Plasterer Helper ID - LEN LTroponin [id number] 05:22:00 Test Item Value Reference Range Interpretation Comments Troponin I (test code = <0.01 0-0.03 04371-9) CHARLENE (test code = CAHRLENE) Troponin I (TnI) levels must be interpreted [...] failure, acidosis, acute neurological disease, and persistent tachyarrhythmia. tor ID - JEREMY M Lab Interpretation (test Normal code = 09666-4) [facility] CenterTROPONIN [id number] 05:22:00 Test Item Value Reference Range Interpretation Comments TROPONIN I (BEAKER) (test code = 397) < ng/mL 0.00-0.03 [...] failure, acidosis, acute neurological disease, and persistent tachyarrhythmia.Ornamental Plasterer Helper ID - JEREMY MCT, BRAIN, WITHOUT [id number] 04:15:00Unlisted Reason for Exam - Click Yes and Enter Reason Below->NoOLYMPIA MEDICAL CENTERName: KATTY BENEDICT : 1950 Sex: FFINAL REPORT [...] over the right parietal calvarium. Signed: [facility] Verified Date/Time: 10/15/2020 04:15:32 CT brain without IV [id number] 04:15:00Interface, External Ris In - 10/15/2020 4:17 [...] Signed: Andrea Dubose Verified Date/Time: 10/15/2020 04:15:32 [facility] [id number] 03:13:00 Test Item Value Reference Range Interpretation [...] Calcium (test code = 8.9 mg/dL 8.4-10.2 99072-8) EGFR (test code = 82 mL/min/1.73 [place] [address]-9) NOT ACCURATE CREATININE CLEARANCE IN PREDICTING GLOMERULAR FILTRATION RATE . ESTIMATED GFR I S NOT APPLICABLE FOR DIALYSIS PATIENTS. CHARLENE (test code = CHARLENE) Ornamental Plasterer Helper ID - JEREMY M Lab Interpretation Abnormal (test code = 06581-7) [facility] CenterMagnesium2021-03-18 03:13:00 Test Item Value Reference Range Interpretation Comments Magnesium (test code = 1.6 mg/dL 1.6-2.6 07224-5) CHARLENE (test code = CHARLENE) Ornamental Plasterer Helper ID - JEREMY M Lab Interpretation (test Normal code = 77630-7) [facility] CenterPhosphorus2021-03-18 03:13:00 Test Item Value Reference Range Interpretation Comments Phosphorus (test code = 3.0 mg/dL 2.3-4.7 2777-1) CHARLENE (test code = CHARLENE) Ornamental Plasterer Helper ID - JEREMY M Lab Interpretation (test Normal code = 13221-5) [facility] CenteraPTT2021-03-18 03:13:00 Test Item Value Reference Range Interpretation Comments PTT (test code = 00598-1) 25.9 See_Comment [ Automated message] The system [employer] generated this result transmitted ref erence range: 22.5 - 3 6.0 seconds. The re ference range was not u sed to interpret this result as normal/abnor mal. Lab Interpretation (test Normal code = 36131-5) [facility] CenterAPTT2021-03-18 03:13:00 Test Item Value Reference Range Interpretation Comments PARTIAL THROMBOPLASTIN TIME 25.9 seconds 22.5-36.0 (BEAKER) (test code = 760) [id number] 03:13:00 Test Item Value Reference Range Interpretation Comments MAGNESIUM (BEAKER) (test code = 1.6 mg/dL 1.6-2.6 627) Ornamental Plasterer Helper ID - JEREMY MBASIC METABOLIC [id number] 03:13:00 Test Item Value Reference Range Interpretation [...] S NOT APPLICABLE FOR DIALYSIS PATIEN TS. Ornamental Plasterer Helper ID - JEREMY [id number] 03:13:00 Test Item Value Reference Range Interpretation Comments PHOSPHORUS (BEAKER) (test code = 3.0 mg/dL 2.3-4.7 604) Ornamental Plasterer Helper ID - JEREMY MProthrombin time/[id number] 03:12:00 Test Item Value Reference Interpretation Comments Range Protime (test code = 12.8 See_Comment [Autom ated 5902-2) message] The system which generated this result transmitted reference range : 11.9 - 14.2 seconds. The reference range was not used to interpret this result as normal/abnormal . INR (test code = 0.99 See_Comment [Automated 8592-6) message] The system which generated this result [...] valves. Lab Interpretation Normal (test code = 07630-8) [facility] CenterPROTHROMBIN TIME/[id number] 03:12:00 Test Item Value Reference Range Interpretation Comments PROTIME (BEAKER) 12.8 seconds 11.9-14.2 (test code = 759) INR (BEAKER) (test 0.99 See_Comment [Automat ed message] code = 370) The system [employer] generated this result transmitted ref erence range: [...] mechanical heart valves.CBC W/PLT COUNT & AUTO [id number] 02:51:00 Test Item Value Reference Range Interpretation [...] 0-1 PERCENT (BEAKER) (test code = 2801) [id number] 00:00:00Ordered by an unspecified provider.[facility]
[2021-01-17 21:41] LABS: Urine Blood Trace-intact (Negative); Urine Glucose Negative (Negative); Urine Protein Negative (Negative); Urine Specific Gravity <=1.005 (1.005-1.030)
[2021-01-17 21:55] LABS: Barbiturates NEGATIVE (NEGATIVE); Benzodiazepines NEGATIVE (NEGATIVE); Cocaine NEGATIVE (NEGATIVE); METHAMPHETAM NEGATIVE (NEGATIVE); Methadone NEGATIVE (NEGATIVE); Opiates NEGATIVE (NEGATIVE); Phencyclidine NEGATIVE (NEGATIVE); THC Cannibis NEGATIVE (NEGATIVE)
[2021-01-17 22:15] LABS: Basophils % 0.7 % (0-1.3); Hematocrit 37.1 % (36.0-45.0); Lymphocytes % 24.6 % (15.3-44.8); MPV 7.4 fL (7.6-11.3); RBC Red Blood Cell Count 3.79 M/uL (3.86-4.86)
[2021-01-17 22:18] LABS: Protime INR 0.78
[2021-01-17 22:29] LABS: ALT/SGPT 16 U/L (12-78); AST/SGOT 27 U/L (15-37); Albumin 3.8 g/dL (3.4-5.0); Alkaline Phosphatase 95 U/L (45-117); BUN Blood Urea Nitrogen 9 mg/dL (7-18); Bicarbonate 20 mmol/L (21-32); Bilirubin Direct 0.1 mg/dL (0-0.2); Bilirubin Total 0.3 mg/dL (0.2-1.0); Glucose Level 83 mg/dL (74-106); Potassium 3.7 mmol/L (3.5-5.1); Protein, Total 7.9 g/dL (6.4-8.2); Sodium Level 139 mmol/L (136-145)
--- NOTE | 2021-01-18 00:37 | ER ---
Nurse's Notes [facility] Name: Carrol Dickens Age: 70 yrs Sex: Female : 1950 Arrival Date: 01/17/2021 Time: 20:34 Bed 6 Private MD: Diagnosis: Alcohol use, unspecified with intoxication;Contusion, Upper Extremity;Skin Tear, Left Forearm Presentation: 01/17 20:40 Chief complaint: EMS states: Pt has had multiple mixed drinks. Went to the restroom. jb4 found her in the floor eating gummy bears. believes she fell. She has a skin tear to the left elbow. BGL was 182. Pt is A\T\O 2-3. Care prior to arrival: None. Mechanism of Injury: Fall from standing position. Trauma event details: Injury occurred in the [facility]. 20:40 Acuity: SHIN 3 jb4 20:40 Method Of Arrival: EMS: [facility] jb4 20:40 Coronavirus screen: Client denies travel out of the [place] in the last 14 days. At this jb4 time, the client does not indicate any symptoms associated with coronavirus-19. Ebola Screen: No symptoms or risks identified at this time. 20:40 Initial Sepsis Screen: Does the patient meet any 2 criteria? HR > 90 bpm. Yes Does the jb4 patient have a suspected source of infection? No. Patient's initial sepsis screen is negative. Risk Assessment: Do you want to hurt yourself or someone else? Patient reports no desire to harm self or others. Onset of symptoms was January 17, 2021. Trauma Activation: Alert Physician: ED Physician; Name: Dr. Capps; Notified At: 20:32; Arrived At: Physician: General Surgeon; Name: ; Notified At: 20:32; Arrived At: Physician: Radiology; Name: Kim; Notified At: 20:32; Arrived At: 20:32 Physician: Respiratory; Name: ; Notified At: 20:32; Arrived At: Physician: Lab; Name: ; Notified At: 20:32; Arrived At: Historical: - Allergies: 20:40 sodium bisulfite; jb4 - Home Meds: 20:40 Unable to obtain [Active]; jb4 - PMHx: 20:40 Anxiety; Depression; GERD; UTI; jb4 - PSHx: 20:40 back; feet; ; Cholecystectomy; Carpal Tunnel Repair; jb4 - Immunization history:: Adult Immunizations unknown. - Immunization history: Last tetanus immunization: unknown. - Social history:: Smoking status: unknown Patient uses alcohol, patient/guardian reports recent binge of alcohol consumption. Screenin:40 Abuse screen: Denies threats or abuse. Nutritional screening: No deficits noted. jb4 Tuberculosis screening: No symptoms or risk factors identified. Fall risk None identified. Primary Survey: 20:40 NO uncontrolled hemorrhage observed. A: The patient is alert. Airway: patent, No jb4 supplemental oxygen in use on arrival. Oral cavity: clear, gag reflex present. Breathing/Chest: Respiratory pattern: regular, Respiratory effort: spontaneous, unlabored, Chest inspection: symmetrical rise and fall of the chest. Circulation: Skin color: pink, Skin temperature: warm, dry. Disability Alert. Exposure/Environment: All clothing and personal items were removed. Forensic evidence collection is not deemed to be indicated at this time. Items placed in patient belonging bag. 21:30 Reassessment Airway Airway Patent Oral Airway Oxygen No O2 Oral cavity Clear +Gag jb4 reflex Breathing/Chest Respiratory pattern Regular Respiratory effort Spontaneous Unlabored Chest inspection Symmetrical Circulation Color [place] Temperature Warm Dry Disability Alert. Assessment: 20:40 General: Appears in no apparent distress. comfortable, Behavior is calm, cooperative, jb4 Smells of alcohol. Pain: Denies pain. Neuro: Level of Consciousness is awake, alert, obeys commands, Oriented to person, place, time. EENT: No signs and/or symptoms were reported regarding the EENT system. Cardiovascular: Patient's skin is warm and dry. Respiratory: Airway is patent Respiratory effort is even, unlabored, Respiratory pattern is regular, symmetrical. GI: No signs and/or symptoms were reported involving the gastrointestinal system. : No signs and/or symptoms were reported regarding the genitourinary system. Derm: Skin has skin tears on Left Elbow Skin is pink, warm \T\ dry. Musculoskeletal: Circulation, motion, and sensation intact. Range of motion: intact in all extremities. 21:15 Reassessment: Assisted patient to bsc; patient unsteady while standing, voided at this lp1 time. 21:30 Reassessment: Pt is awake, oriented x3 Daughter is at the bedside. respirations are jb4 even and unlabored. No s/s of distress noted at this time. 22:17 Reassessment: Patient appears in no apparent distress at this time. Patient and/or jb4 family updated on plan of care and expected duration. Pain level reassessed. Patient is alert, oriented x 3, equal unlabored respirations, skin warm/dry/pink. 22:59 Reassessment: Patient appears in no apparent distress at this time. Patient and/or jb4 family updated on plan of care and expected duration. Pain level reassessed. Patient is alert, oriented x 3, equal unlabored respirations, skin warm/dry/pink. 23:00 Reassessment: PT to CT. jb4 23:55 Reassessment: Patient appears in no apparent distress at this time. Patient and/or jb4 family updated on plan of care and expected duration. Pain level reassessed. Patient is alert, oriented x 3, equal unlabored respirations, skin warm/dry/pink. Vital Signs: 20:40 BP 136 / 90; Pulse 95; Resp 16; Temp 98.0(O); Pulse Ox 97% on R/A; Weight 59.87 kg (R); jb4 Height 5 ft. 4 in. (162.56 cm); Pain 0/10; 21:15 BP 144 / 87; Pulse 95; Resp 20; Pulse Ox 99% on R/A; lp1 22:00 BP 131 / 83; Pulse 96; Resp 16; Pulse Ox 93% on R/A; jb4 23:15 BP 120 / 70; Pulse 101; Resp 19; Pulse Ox 98% on R/A; jb4 20:40 Body Mass Index 22.66 (59.87 kg, 162.56 cm) jb4 Gail Coma Score: 20:40 Eye Response: spontaneous(4). Verbal Response: oriented(5). Motor Response: obeys jb4 commands(6). Total: 15. 21:30 Eye Response: spontaneous(4). Verbal Response: oriented(5). Motor Response: obeys jb4 commands(6). Total: 15. 22:00 Eye Response: spontaneous(4). Verbal Response: oriented(5). Motor Response: obeys jb4 commands(6). Total: 15. 23:15 Eye Response: spontaneous(4). Verbal Response: oriented(5). Motor Response: obeys jb4 commands(6). Total: 15. Trauma Score (Adult): 20:40 Eye Response: spontaneous(1); Verbal Response: oriented(1); Motor Response: obeys jb4 commands(2); Systolic BP: > 89 mm Hg(4); Respiratory Rate: 10 to 29 per min(4); [place] Score: 15; Trauma Score: 12 21:30 Eye Response: spontaneous(1); Verbal Response: oriented(1); Motor Response: obeys jb4 commands(2); Systolic BP: > 89 mm Hg(4); Respiratory Rate: 10 to 29 per min(4); Gail Score: 15; Trauma Score: 12 22:00 Eye Response: spontaneous(1); Verbal Response: oriented(1); Motor Response: obeys jb4 commands(2); Systolic BP: > 89 mm Hg(4); Respiratory Rate: 10 to 29 per min(4); Gail Score: 15; Trauma Score: 12 23:15 Eye Response: spontaneous(1); Verbal Response: oriented(1); Motor Response: obeys jb4 commands(2); Systolic BP: > 89 mm Hg(4); Respiratory Rate: 10 to 29 per min(4); [place] Score: 15; Trauma Score: 12 ED Course: 20:34 Patient arrived in ED. cf2 20:40 Gagandeep Silva, RN is Primary Nurse. jb4 20:40 Patient has correct armband on for positive identification. Bed in low position. Call jb4 light in reach. Side rails up X 1. 20:40 Arm band placed on right wrist. jb4 20:40 Patient maintains SpO2 saturation greater than 95% on room air. Thermoregulation: warm jb4 blanket given to patient. 20:44 Triage completed. jb4 20:48 Sonu Capps MD is Attending Physician. [facility] 21:45 Initial lab(s) drawn, by oh, sent to lab. Inserted saline lock: 20 gauge in right jb4 antecubital area, using aseptic technique. Blood collected. 21:56 XRAY Elbow LEFT 3 view In Process Unspecified. EDMS 21:57 XRAY Forearm LEFT In Process Unspecified. EDMS 21:57 XRAY Elbow RIGHT 3 view In Process Unspecified. EDMS 21:57 XRAY Forearm RIGHT In Process Unspecified. EDMS 23:37 CT Traumagram (Head C Spine CAP W Con) In Process Unspecified. EDMS 01/18 00:47 No provider procedures requiring assistance completed. IV discontinued, intact, jb4 bleeding controlled, No redness/swelling at site. Pressure dressing applied. Administered Medications: No medications were administered Output: 00:48 Urine: 5ml (Voided); Total: 5ml. jb4 Outcome: 00:30 Patient's length of stay in the Emergency Department was greater than 2 hours. D/c jb4 pending lab resultsPatient's length of stay extended due to 00:37 Discharge ordered by . 7 00:47 Discharged to home via wheelchair, with family. jb4 00:47 Condition: stable 00:47 Discharge instructions given to patient, family, Instructed on discharge instructions, follow up and referral plans. Demonstrated understanding of instructions, follow-up care. 00:48 Patient left the ED. jb4 Signatures: Dispatcher [employer] EDNM Silvia Baldwin, RN RN lp1 Gagandeep Silva RN RN jb4 Campos Butler cf2 Sonu Capps MD MD 7 Corrections: (The following items were deleted from the chart) 01/17 21:52 20:40 Neuro: Level of Consciousness is awake, alert, obeys commands, Oriented to jb4 person, place, time, situation, jb4
--- NOTE | 2021-01-18 00:37 | EDPHYS ---
Physician Documentation [facility] Name: Carrol Dickens Age: 70 yrs Sex: Female : 1950 Arrival Date: 01/17/2021 Time: 20:34 Bed 6 Private MD: ED Physician Sonu Capps HPI: 01/17 21:12 This 70 yrs old Female presents to ER via EMS with complaints of Fall Injury. mh7 21:13 The patient presents to the emergency department. mh7 21:13 Trauma demographics: County: The injury occurred in [place] Location of Injury: The mh7 injury occurred at home, Date: January 17, 2021. Mechanism of injury: Unknown. Associated injuries: The patient sustained left forearm, abrasion, contusion, skin tear. Onset: The symptoms/episode began/occurred today. Per EMS patient has been drinking EtOH today and found her sitting on bathroom floor eating candy. He noticed a skin tear to her left forearm. Patient denies any falls.. Historical: - Allergies: 20:40 sodium bisulfite; jb4 - Home Meds: 20:40 Unable to obtain [Active]; jb4 - PMHx: 20:40 Anxiety; Depression; GERD; UTI; jb4 - PSHx: 20:40 back; feet; ; Cholecystectomy; Carpal Tunnel Repair; jb4 - Immunization history:: Adult Immunizations unknown. - Immunization history: Last tetanus immunization: unknown. - Social history:: Smoking status: unknown Patient uses alcohol, patient/guardian reports recent binge of alcohol consumption. ROS: 21:13 Constitutional: Negative for fever, chills, and weight loss, Eyes: Negative for injury, mh7 pain, redness, and discharge, ENT: Negative for injury, pain, and discharge, Neck: Negative for injury, pain, and swelling, Cardiovascular: Negative for chest pain, palpitations, and edema, Respiratory: Negative for shortness of breath, cough, wheezing, and pleuritic chest pain, Abdomen/GI: Negative for abdominal pain, nausea, vomiting, diarrhea, and constipation, Back: Negative for injury and pain, : Negative for injury, bleeding, discharge, and swelling, Neuro: Negative for headache, weakness, numbness, tingling, and seizure, Psych: Negative for depression, anxiety, suicide ideation, homicidal ideation, and hallucinations, Allergy/Immunology: Negative for hives, rash, and allergies, Endocrine: Negative for neck swelling, polydipsia, polyuria, polyphagia, and marked weight changes, Hematologic/Lymphatic: Negative for swollen nodes, abnormal bleeding, and unusual bruising. Exam: 21:13 Head/Face: Normocephalic, atraumatic. Eyes: Pupils equal round and reactive to light, mh7 extra-ocular motions intact. Lids and lashes normal. Conjunctiva and sclera are non-icteric and not injected. Cornea within normal limits. Periorbital areas with no swelling, redness, or edema. ENT: Nares patent. No nasal discharge, no septal abnormalities noted. Tympanic membranes are normal and external auditory canals are clear. Oropharynx with no redness, swelling, or masses, exudates, or evidence of obstruction, uvula midline. Mucous membranes moist. Neck: Trachea midline, no thyromegaly or masses palpated, and no cervical lymphadenopathy. Supple, full range of motion without nuchal rigidity, or vertebral point tenderness. No Meningismus. Chest/axilla: Normal chest wall appearance and motion. Nontender with no deformity. No lesions are appreciated. Cardiovascular: Regular rate and rhythm with a normal S1 and S2. No gallops, murmurs, or rubs. Normal PMI, no JVD. No pulse deficits. Respiratory: Lungs have equal breath sounds bilaterally, clear to auscultation and percussion. No rales, rhonchi or wheezes noted. No increased work of breathing, no retractions or nasal flaring. Abdomen/GI: Soft, non-tender, with normal bowel sounds. No distension or tympany. No guarding or rebound. No evidence of tenderness throughout. Back: No spinal tenderness. No costovertebral tenderness. Full range of motion. 21:13 Psych: Awake, alert, with orientation to person, place and time. Behavior, mood, and affect are within normal limits. 21:13 Constitutional: The patient appears in no acute distress, alert, awake, smells of alcohol, ETOH, Appears intoxicated 21:13 Musculoskeletal/extremity: Extremities: noted in the left upper lateral forearm: abrasion, contusion, small skin tear, no active bleeding, ROM: intact in all extremities, Circulation is intact in all extremities. Sensation intact. Compartment Syndrome exam of affected extremity: is normal. no pain, no numbness, no tingling, no sensation deficit, no palor, no weak pulses, Joints: All joints appear normal with full range of motion. Weight bearing: able to fully bear weight, without difficulty, Tendon exam: specific tendon testing normal through active and passive range of motion 21:13 Skin: injury, abrasion(s), very small abrasion noted, of the left upper lateral forearm, contusion(s), that are superficial, of the left upper lateral forearm, small skin tear, left upper lateral forearm, no active bleeding. 21:13 Neuro: Orientation: appropriate for stated age, Mentation: is normal, Memory: appropriate for stated age, Cranial nerves: grossly normal, Cerebellar function: unable to test, the patient is clinically intoxicated, Motor: is normal, Sensation: is normal, Gait: not tested. seizure activity, is not displayed by the patient, Abnormal movements: there are no abnormal movements. Vital Signs: 20:40 BP 136 / 90; Pulse 95; Resp 16; Temp 98.0(O); Pulse Ox 97% on R/A; Weight 59.87 kg (R); jb4 Height 5 ft. 4 in. (162.56 cm); Pain 0/10; 21:15 BP 144 / 87; Pulse 95; Resp 20; Pulse Ox 99% on R/A; lp1 22:00 BP 131 / 83; Pulse 96; Resp 16; Pulse Ox 93% on R/A; jb4 23:15 BP 120 / 70; Pulse 101; Resp 19; Pulse Ox 98% on R/A; jb4 20:40 Body Mass Index 22.66 (59.87 kg, 162.56 cm) jb4 Gail Coma Score: 20:40 Eye Response: spontaneous(4). Verbal Response: oriented(5). Motor Response: obeys jb4 commands(6). Total: 15. 21:30 Eye Response: spontaneous(4). Verbal Response: oriented(5). Motor Response: obeys jb4 commands(6). Total: 15. 22:00 Eye Response: spontaneous(4). Verbal Response: oriented(5). Motor Response: obeys jb4 commands(6). Total: 15. 23:15 Eye Response: spontaneous(4). Verbal Response: oriented(5). Motor Response: obeys jb4 commands(6). Total: 15. Trauma Score (Adult): 20:40 Eye Response: spontaneous(1); Verbal Response: oriented(1); Motor Response: obeys jb4 commands(2); Systolic BP: > 89 mm Hg(4); Respiratory Rate: 10 to 29 per min(4); Gail Score: 15; Trauma Score: 12 21:30 Eye Response: spontaneous(1); Verbal Response: oriented(1); Motor Response: obeys jb4 commands(2); Systolic BP: > 89 mm Hg(4); Respiratory Rate: 10 to 29 per min(4); Gail Score: 15; Trauma Score: 12 22:00 Eye Response: spontaneous(1); Verbal Response: oriented(1); Motor Response: obeys jb4 commands(2); Systolic BP: > 89 mm Hg(4); Respiratory Rate: 10 to 29 per min(4); Gail Score: 15; Trauma Score: 12 23:15 Eye Response: spontaneous(1); Verbal Response: oriented(1); Motor Response: obeys jb4 commands(2); Systolic BP: > 89 mm Hg(4); Respiratory Rate: 10 to 29 per min(4); Gail Score: 15; Trauma Score: 12 MDM: 01/18 00:32 Differential diagnosis: closed head injury, extremity fracture, C spine fracture. Data [facility] reviewed: vital signs, nurses notes, EMS record, lab test result(s), CBC, drug level(s), alcohol, electrolytes, urinalysis, EKG, radiologic studies, CT scan, plain films. Data interpreted: Pulse oximetry: on room air is 98 %. Interpretation: normal. Counseling: I had a detailed discussion with the patient and/or guardian regarding: the historical points, exam findings, and any diagnostic results supporting the discharge/admit diagnosis, lab results, radiology results, the need for outpatient follow up, to return to the emergency department if symptoms worsen or persist or if there are any questions or concerns that arise at home. Response to treatment: the patient's symptoms have markedly improved after treatment. 00:37 Patient medically screened. [facility] 01/17 21:00 Order name: Acetaminophen [facility] 01/17 21:00 Order name: Basic Metabolic Panel; Complete Time: 22:[address] [facility] 01/17 21:00 Order name: CBC with Diff; Complete Time: 22:[address] [facility] 01/17 21:00 Order name: ETOH Level; Complete Time: 22:[address] [facility] 01/17 21:00 Order name: Hepatic Function; Complete Time: 22:[address] [facility] 01/17 21:00 Order name: PT-INR; Complete Time: 22:[address] [facility] 01/17 21:00 Order name: Ptt, Activated; Complete Time: 22:[address] [facility] 01/17 21:00 Order name: Salicylate; Complete Time: 22:[address] [facility] 01/17 21:00 Order name: Urine Drug Screen; Complete Time: 22:[address] [facility] 01/17 21:00 Order name: XRAY Elbow LEFT [address] [facility] 01/17 21:00 Order name: XRAY Forearm LEFT [facility] 01/17 21:01 Order name: Acetaminophen Level; Complete Time: 22:50 EDMS 01/17 21:41 Order name: Urine Dipstick-Ancillary; Complete Time: 22:50 EDMS 01/17 21:00 Order name: EKG; Complete Time: 21:[address] [facility] 01/17 21:00 Order name: EKG - Nurse/Tech; Complete Time: 22:[address] [facility] 01/17 21:00 Order name: IV Saline Lock; Complete Time: 21:[address] [facility] 01/17 21:00 Order name: Labs collected and sent; Complete Time: 21:[address] [facility] 01/17 21:00 Order name: Suicide Screening ([place]); Complete Time: 21:[address] [facility] 01/17 21:00 Order name: Urine Dipstick-Ancillary (obtain specimen); Complete Time: 21:[address] [facility] 01/17 21:25 Order name: CT Traumagram (Head C Spine CAP W Con) [facility] 01/17 21:27 Order name: XRAY Elbow RIGHT [address] [facility] 01/17 21:27 Order name: XRAY Forearm RIGHT [facility] Administered Medications: No medications were administered Disposition: 01/18/21 00:37 Discharged to Home. Impression: Alcohol use, unspecified with intoxication, Contusion, Upper Extremity, Skin Tear, Left Forearm. - Condition is Stable. - Discharge Instructions: Alcohol Intoxication, [id number], Contusion, [id number], Skin Tear Care, [id number]. - Medication Reconciliation Form, Thank You Letter, Antibiotic Education, Prescription Opioid Use form. - Follow up: Private Physician; When: 1 - 2 days; Reason: Worsening of condition, Recheck today's complaints, Continuance of care, Re-evaluation by your physician. - Problem is new. - Symptoms have improved. Signatures: Dispatcher [employer] [facility] Gagandeep Silva, RN RN jb4 Sonu Capps MD MD mh7 Corrections: (The following items were deleted from the chart) 01/17 21:32 21:01 Head C Spine MPR Wo Con+CT.RAD.BRZ ordered. [facility] 01/18 00:48 00:37 01/18/2021 00:37 Discharged to Home. Impression: Alcohol use, unspecified with jb4 intoxication; Contusion, Upper Extremity; Skin Tear, Left Forearm. Condition is Stable. Forms are Medication Reconciliation Form, Thank You Letter, Antibiotic Education, Prescription Opioid Use. Follow up: Private Physician; When: 1 - 2 days; Reason: Worsening of condition, Recheck today's complaints, Continuance of care, Re-evaluation by your physician. Problem is new. Symptoms have improved. mh7
[2021-01-18 01:16] VITALS: TEMP 98
[2021-01-18 01:20] VITALS: BP 120/70; O2SAT 98
--- NOTE | 2021-01-18 08:23 | EKG ---
Test Date: 2021-01-17 Test Time: 22:25:10 Brick Extruder Operator: ONELIA MEASUREMENT RESULTS: Intervals: Rate: 95 UT: 164 QRSD: 88 QT: 374 QTc: 469 [place]: P: -19 UT: 164 QRS: 33 T: -13 INTERPRETIVE STATEMENTS: Normal sinus rhythm Septal infarct, age undetermined Abnormal ECG Compared to ECG 10/14/2020 23:03:45 Myocardial infarct finding now present Sinus tachycardia no longer present Electronically Signed On 01-18-21 08:22:53 CDT by Miller Judd
--- NOTE | 2021-01-18 12:08 | RAD REPORT ---
EXAM DESCRIPTION: CT - Head C Spine Saulo Moses - 01/18/2021 7:09 am CLINICAL HISTORY: Trauma. TECHNIQUE: Axial, coronal, and sagittal images through the brain were performed in the absence of in travenous contrast. CT of the cervical spine was performed without contrast. Axial, coronal, and sagittal reconstructions were created and sent to PACS. CT of the chest, abdomen, and pelvis was performed following intravenous administration of iodinated contrast. Oral contrast was not administered. Axial, coronal, and sagittal reconstructions were creat ed and sent to PACS. These exams were performed according to our departmental dose-optimization program which includes use of Automated Exposure Control, adjustment of the mA and/or kV according to patient size and/or use o f iterative reconstruction technique. COMPARISON: None. FINDINGS: CT Head: There is diffuse age-appropriate atrophy seen throughout the brain parenchyma. Mild periventricular w fransisca matter changes are seen to be present and there is moderate ex vacuo dilatation of the ventricul ar system. There is no intra-axial or extra-axial bleed. There is no mass or mass effect. Tiny chroni c bilateral basal ganglia lacunar infarcts. Suspected small chronic infarct in the lateral aspect of the right cerebellar hemisphere. The visualized paranasal sinuses and mastoid air cells are patent. No fracture is identified. CT cervical spine: No acute osseous abnormality identified. Vertebral body height and alignment are maintained. No atlan todental interval widening. Anterior cervical spine fusion hardware from C3 through C5. Calcification of the posterior longitudinal ligament at C4-C5. Atlantoaxial alignment is maintained. C2-C3: Small posterior disc osteophyte complex results in mild narrowing of the central canal to 0.7 cm AP. Mild left neuroforaminal stenosis due to facet hypertrophy. No significant right neuroforamina l narrowing. C3-C4: Postsurgical level. Calcification of the posterior longitudinal ligament at this level. Border line central canal narrowing to 0.8 cm. No significant neuroforaminal narrowing. C4-C5: Postsurgical level. Calcification of the posterior longitudinal ligament. Mild central canal n arrowing to 0.7 cm AP. Mild to moderate right neuroforaminal stenosis due to uncinate hypertrophy. No significant left neuroforaminal narrowing. C5-C6: Postsurgical level. Calcification of the posterior longitudinal ligament. Borderline narrowing of the central canal to 0.9 cm AP. Moderate right and mild left neuroforaminal stenosis due to uncin ate hypertrophy. C6-C7: Posterior disc osteophyte complex results in borderline narrowing of the central canal to 0.8 cm AP. No significant neuroforaminal narrowing. Paraspinal soft tissues: Mild calcific atherosclerosis. CT chest, abdomen, and pelvis: Suboptimal evaluation of the abdomen due to streak artifact from spinal hardware. Lungs and pleura: No pulmonary consolidation. No pleural effusion. No pneumothorax. Mediastinum and neck: No mediastinal lymphadenopathy identified by CT size criteria. Unremarkable иван earance of the thyroid gland. Cardiac: No cardiomegaly or pericardial effusion. No thoracic aortic aneurysm or dissection. Mild francisco javier cific atherosclerosis. No central pulmonary embolism. Hepatobiliary: No concerning hepatic lesion identified. The hepatic and portal veins are patent. The gallbladder is surgically absent. No pathologic biliary ductal dilatation. Trace pneumobilia. Pancreas: Unremarkable. Spleen: Calcified granuloma in the spleen, likely sequela of remote prior healed granulomatous diseas e. Gastrointestinal: No evidence of bowel obstruction or perienteric inflammation. The appendix is nonvi sualized, but there are no pericecal inflammatory changes. Small amount of fecal material in colon. Adrenals: No abnormality identified in either adrenal gland. Renal: Lobulated appearance of both kidneys, at least partially due to suspected small multifocal laurence al cortical defects. No concerning parenchymal abnormality in either kidney. No hydronephrosis or uro lithiasis. Bladder/Reproductive: Unremarkable appearance of the urinary bladder by CT technique. Hysterectomy. Vascular/Lymphatics: No lymphadenopathy identified by CT size criteria. Abdominal aorta is normal in caliber. Moderate calcific atherosclerosis. The major visceral vessels are patent. Musculoskeletal: No concerning osseous lesion identified. Osteopenia. Lower lumbar spine posterior fu radha hardware. Spinal degenerative changes. Favored chronic mild central inferior endplate compressio n fracture at T8 with no significant bony retropulsion. Chronic sharp angulation at the sacrococcygea l junction. Fluid / peritoneum: No significant free fluid. No free intraperitoneal air identified. IMPRESSION: 1. No acute intracranial abnormality identified. 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 2. No acute osseous abnormality identified in the cervical spine. Postsurgical and degenerative zahra nges. 3. No acute abnormality identified in the chest, abdomen, or pelvis. 4. Osteopenia, with favored chronic mild compression fracture at T8. Electronically signed by: Omayra Hardwick MD 01/18/2021 12:17 AM CDT Due to temporary technical issues with the PACS/Fluency reporting system, reports are being signed by the in house radiologists without review as a courtesy to insure prompt reporting. The interpreting radiologist is fully responsible for the content of the report.
--- NOTE | 2021-01-18 12:41 | RAD REPORT ---
EXAM DESCRIPTION: RAD - Elbow Right 3 View - 01/17/2021 9:57 pm CLINICAL HISTORY: Trauma. COMPARISON: None. TECHNIQUE: Three views of the right elbow: AP, oblique, and lateral radiographs. Two views of the ri ght forearm: AP and lateral radiographs. FINDINGS: No acute osseous abnormality identified. Chronic osseous fragment adjacent to the medial a nd lateral epicondyles of the distal humerus are likely sequela of chronic enthesopathy. No evidence of right elbow joint effusion. Alignment is maintained. IMPRESSION: 1. No acute osseous abnormality identified. 2. Chronic enthesopathy. Electronically signed by: Omayra Hardwick MD 01/17/2021 11:15 PM CDT Due to temporary technical issues with the PACS/Fluency reporting system, reports are being signed by the in house radiologists without review as a courtesy to insure prompt reporting. The interpreting radiologist is fully responsible for the content of the report.
--- NOTE | 2021-01-18 12:42 | RAD REPORT ---
EXAM DESCRIPTION: RAD - Forearm Right - 01/17/2021 9:57 pm CLINICAL HISTORY: Trauma. COMPARISON: None. TECHNIQUE: Three views of the right elbow: AP, oblique, and lateral radiographs. Two views of the ri ght forearm: AP and lateral radiographs. FINDINGS: No acute osseous abnormality identified. Chronic osseous fragment adjacent to the medial a nd lateral epicondyles of the distal humerus are likely sequela of chronic enthesopathy. No evidence of right elbow joint effusion. Alignment is maintained. IMPRESSION: 1. No acute osseous abnormality identified. 2. Chronic enthesopathy. Electronically signed by: Omayra Hardwick MD 01/17/2021 11:15 PM CDT Due to temporary technical issues with the PACS/Fluency reporting system, reports are being signed by the in house radiologists without review as a courtesy to insure prompt reporting. The interpreting radiologist is fully responsible for the content of the report.
--- NOTE | 2021-01-18 12:43 | RAD REPORT ---
EXAM DESCRIPTION: RAD - Forearm Left - 01/17/2021 9:57 pm CLINICAL HISTORY: Trauma. COMPARISON: None. TECHNIQUE: Two views of the left forearm: AP and lateral radiographs. Three views of the left elbow: AP, oblique, and lateral radiographs. FINDINGS: No acute osseous abnormality identified. No evidence of left elbow joint effusion. Alignme nt is maintained. No concerning osseous lesions. Mild chronic enthesophyte changes along the medial a nd lateral epicondyles of the distal humerus. IMPRESSION: No acute osseous abnormality identified in the left elbow or humerus. Electronically signed by: Omayra Hardwick MD 01/17/2021 11:14 PM CDT Due to temporary technical issues with the PACS/Fluency reporting system, reports are being signed by the in house radiologists without review as a courtesy to insure prompt reporting. The interpreting radiologist is fully responsible for the content of the report.
--- NOTE | 2021-01-18 12:45 | RAD REPORT ---
EXAM DESCRIPTION: RAD - Elbow Left 3 View - 01/17/2021 9:56 pm CLINICAL HISTORY: Trauma. COMPARISON: None. TECHNIQUE: Two views of the left forearm: AP and lateral radiographs. Three views of the left elbow: AP, oblique, and lateral radiographs. FINDINGS: No acute osseous abnormality identified. No evidence of left elbow joint effusion. Alignme nt is maintained. No concerning osseous lesions. Mild chronic enthesophyte changes along the medial a nd lateral epicondyles of the distal humerus. IMPRESSION: No acute osseous abnormality identified in the left elbow or humerus. Electronically signed by: Omayra Hardwick MD 01/17/2021 11:14 PM CDT Due to temporary technical issues with the PACS/Fluency reporting system, reports are being signed by the in house radiologists without review as a courtesy to insure prompt reporting. The interpreting radiologist is fully responsible for the content of the report.
== END 2021-01-18 00:48 | disposition home or self-care (01) ==
LOC: ER 20:32
DX: S50.12XA Contusion of left forearm, initial encounter (principal); F10.129 Alcohol abuse with intoxication, unspecified; S50.812A Abrasion of left forearm, initial encounter; F41.9 Anxiety disorder, unspecified; F32.9 Major depressive disorder, single episode, unspecified; K21.9 Gastro-esophageal reflux disease without esophagitis; W19.XXXA Unspecified fall, initial encounter; Y92.002 Bathroom of unspecified non-institutional (private) residence as the place of occurrence of the external cause; Y90.8 Blood alcohol level of 240 mg/100 ml or more
CPT/HCPCS: 93005; 85025; 80048; 36415; 80320; 80329 ×2; 85610; 80076; 80307 ×8; 85730; 81003; 70450; 72125; 71260; 74177; 73080 ×2; 73090 ×2; Q9967; 99284; G0390

== ENCOUNTER 2021-02-28 00:06 | Emergency (ER) | payer OTHER ==
--- OUTSIDE RECORDS SUMMARY | 2021-02-28 00:55 | XMS REPORT | Continuity of Care Document ---
:1950 Author Organization [facility] t Address [address] [place] [address] Care Team Providers Name Role Phone Pcp Primary Care Physician Unavailable Piyush ADLER Attending Clinician Unavailable Carlos MONTIEL, ITyree Attending Clinician Paulette Almazan MD Attending Clinician Namita MONTIEL Attending Clinician Doctor Unassigned, Name Attending Clinician Unavailable Sam MONTIEL, L Attending Clinician Piyush ADLER Admitting Clinician Unavailable Payers Payer Name Policy Type Policy Effective Date Expiration Date Sour ce Number MEDICAREMEDICARE A [id number] 2016 SAEID Velez [id number] 2015-P 00:00[facility] Condition Condition Condition Status Onset Resolution Last Treating Co mments Source Name Details Category Date Date Treatment Clinician Date GERD GERD Disease Active [facility] ([facility] (gastroeso 3-18 Christine kes - phageal phageal 00:00: Medical reflux reflux 00 Center disease) disease) SDH SDH Disease Active [facility] (subdural (subdural 3-18 [facility] - hematoma) hematoma) 00:00: [facility] Essential Essential Disease Active [facility] hypertensi hypertensi 10-15 Christine kes - on on 00:00: Medical 00 Center Allergies, Adverse Reactions, Alerts Allergy Allergy Status Severity Reaction(s) Onset Inactive Treating Comm ents Source Name Type Date Date Clinician Pauly Dustyensi Active [facility] Bisulfit ty to 10-15 [facility] - e adverse 00:00: Medical reaction 00 [place] Social History Social Habit Start Date Stop Date Quantity Comments Source Sex Assigned At [facility] Medications Ordered Filled Start Stop Current Ordering [...] to 10 days. LORazepam 2020- No .5mg [id number] Take [address] [facility] (ATIVAN) 10-16 [id number] tablet Christine kes - 0.5 MG 00:00: [...] for 7 days. LORazepam 2020- No .5mg Q.[id number] Take [address] [facility] (ATIVAN) 10-16 [id number] tablet Christine kes - 0.5 MG 00:00: [...] blood 2020-10-16 11:41:00 159 mm[Hg] [facility] Diastolic blood 2020-10-16 11:41:00 72 mm[Hg] [facility] S t [facility] Heart rate 2020-10-16 11:41:00 88 /min [facility] Body temperature 2020-10-16 11:41:00 37.17 Verónica [facility] Respiratory rate 2020-10-16 11:41:00 18 /min [facility] Oxygen saturation in 2020-10-16 11:41:00 100 /min [facility] Arterial blood by Medical Ce nter Pulse oximetry Body height 2020-10-15 07:00:00 155 cm [facility] Body weight 2020-10-15 07:00:00 62.9 kg [facility] BMI 2020-10-15 07:00:00 26.18 kg/m2 [facility] Procedures Procedure Date / Time Performed Performing Clinician [facility] e ECG 12-LEAD 2020-10-16 10:15:12 [facility] CBC W/PLT COUNT & AUTO 2020-10-16 10:00:00 [facility] POCT-GLUCOSE METER 2020-10-16 07:58:00 [facility] URINE CULTURE 2020-10-16 06:29:00 [facility] URINALYSIS W/ REFLEX 2020-10-16 06:29:00 [facility] URINE CULTURE [facility] POCT-GLUCOSE METER 2020-10-15 22:09:00 [facility] CBC W/PLT COUNT & AUTO 2020-10-15 19:27:00 [facility] POCT-GLUCOSE METER 2020-10-15 17:37:00 [facility] POCT-GLUCOSE METER 2020-10-15 12:05:[address] [facility] HEMOGLOBIN A1C 2020-10-15 04:19:00 Santosh, [facility] TSH/FREE T4 IF INDICATED 2020-10-15 04:19:00 Miguel Frost [facility] VITAMIN B12 AND FOLATE 2020-10-15 04:19:00 Santosh, [facility] TROPONIN I 2020-10-15 04:19:00 Santosh [facility] T4, FREE 2020-10-15 04:19:[address] [facility] [address] BRAIN WITHOUT IV 2020-10-15 04:03:00 Santosh [facility] BASIC METABOLIC PANEL 2020-10-15 02:40:00 Miguel Frost [facility] () [facility] MAGNESIUM 2020-10-15 02:40:00 Santosh [facility] PHOSPHORUS 2020-10-15 02:40:00 Miguel Frost [facility] CBC W/PLT COUNT & AUTO 2020-10-15 02:40:00 [facility]/INR 2020-10-15 02:40:00 Santosh, [facility] APTT 2020-10-15 02:40:00 [facility] REPORT OF PROCEDURE - 2020-10-15 00:00:00 Provider, Default [facility] ENDOSCOPY SCAN Scanning [facility] Plan of Care Planned Activity Planned Date Details Comments Source Future Scheduled 2021-03-[address] [facility] 00:00:00 (Season Ended) [code = [facility] INFLUENZA VACCINE (Season Ended)] Future Scheduled [...] 00:00:00 (1 of 1 - Medical Center [id number] PCV13) [code = PNEUMOCOCCAL 65+ YRS (1 of 1 - QFHT57_Pmgxcnb PCV13)] Future Scheduled 2001 SHINGLES VACCINES ([address] [facility] - Test 00:00:00 of 2) [code = SHINGLES [facility] VACCINES (1 of 2)] Future Scheduled [...] es - Test 00:00:00 malignant neoplasm of [facility] breast (procedure) [code = 580111779] Future Scheduled [address] [facility] - Test 00:00:00 malignant neoplasm of [facility] colon (procedure) [code = 674978274] Encounters Start End Encounter Admission Attending Care Care Encounter Source Date/Time Date/Time Type Type Clinicians Facility Department ID 2021-02-08 2021-02-08 Outpatient [facility] [id number] 2021-02-04 2021-02-04 Outpatient [facility] [id number] [facility] 2021-01-11 2021-01-11 Outpatient [facility] [id number] [facility] 2020-07-07 2020-07-07 Orders Doctor CECILIO [id number] 00:00:00 00:00:00 Only Unassigned, EDUARDO [id number] [facility] 4.2.7.2.686 [id number] [id number] 2020-05-08 2020-05-08 Orders Doctor CECILIO [id number] 00:00:00 00:00:00 Only Unassigned, EDUARDO [id number] [place] [facility] 4.2.7.2.686 [id number] [id number] 2020-04-16 2020-04-16 [facility] [id number] 15:13:25 23:59:00 Encounter Manolo Wasserman [id number] Surgical 4.2.7.2.686 Specialti [id number] es [address] [place] 2020-04-16 2020-04-16 Office [facility] [id number] 14:32:19 14:47:19 Visit Manolo Wasserman [id number] Surgical 4.2.7.2.686 Specialti [id number] es [address] [place] Results Test Description Test Time Test Comments Results Result Sour e Comments ECG 12 lead 2020-09-29 Interface, External Ris [facility] 2 In - 10/19/2020 8:56 Markos es - 08:56:41 AM CDTVentricular Rate Me dical 89 BPMAtrial Rate 89 Cent er BPMP-R Interval 148 msQRS Duration 76 msQ-T Interval 368 msQTC Calculation(Tylerzesanket) 447 msP [place] 71 degreesR [place] 76 degreesT [place] 45 degreesSinus rhythm with Premature supraventricular complexesMid anterior infarct , age undeterminedMild ST depression inferolateral leads + mild ST elevation in aVR consider ischemiaAbnormal ECGNo previous ECGs availableConfirmed by MD SHARON, KELLI ([id number]) on 10/19/2020 8:56:39 AM Urine culture 2020-10-17 14:53:00 Test Item Value Reference Range Interpretation Comme nts Result (test code = 6463-4) >100,000 col/mL skin megan [facility] with [facility] count + automated [id number] 10:17:00 Test Item Value Reference Range Interpretation Comments WBC (test code = 6690-2) 4.5 See_Comment [A utomated message] The system [employer] generated this result transmitted ref erence range: 3.5 - 10 .5 K/L. The refe rence range was not u sed to interpret this result as normal/abnor mal. RBC (test code = 789-8) 2.29 See_Comment L [Au tomated message] The system [employer] generated this result transmitted ref erence range: 3.93 - 5 .22 M/L. The refe rence range was not u sed to interpret this result as normal/abnor mal. MCHC (test code = 786-4) 31.1 See_Comment L [A utomated message] The system [employer] generated this result transmitted ref erence range: [...] See_Comment [Aut omated message] 777-3) The system [employer] generated this result transmitted ref erence range: 150 - 45 0 K/CU MM. The referen ce range was not u sed to interpret this result as normal/abnor mal. MPV (test code = 9.8 fL 9.4-12.3 65197-3) nRBC (test code = 413) 0 See_Comment [Aut omated message] The system [employer] generated this result transmitted ref erence range: [...] See_Comment [Aut omated message] 670) The system [employer] generated this result transmitted ref erence range: 1.56 - 6 .13 K/L. The refe rence range was not u sed to interpret this result as normal/abnor mal. # Lymphs (test code = 0.85 See_Comment L [Auto mated message] 414) The system [employer] generated this result transmitted ref erence range: 1.18 - 3 .74 K/L. The refe rence range was not u sed to interpret this result as normal/abnor mal. # Monos (test code = 0.35 See_Comment [Autom ated message] 415) The system [employer] generated this result transmitted ref erence range: 0.24 - 0 .36 K/L. The refe rence range was not u sed to interpret this result as normal/abnor mal. # Eos (test code = 416) 0.25 See_Comment [Au tomated message] The system [employer] generated this result transmitted ref erence range: 0.04 - 0 .36 K/L. The refe rence range was not u sed to interpret this result as normal/abnor mal. # Baso (test code = 417) 0.03 See_Comment [A utomated message] The system [employer] generated this result transmitted ref erence range: 0.01 - 0 .08 K/L. The refe rence range was not u sed to interpret this result as normal/abnor mal. Immature 0 % 0-1 Granulocytes-Relative (test code = 2801) Lab Interpretation (test Abnormal code = 47903-0) [facility] W/PLT COUNT & AUTO [id number] 10:17:00 Test Item Value Reference Range Interpretation [...] = 2801) Urinalysis w/Microscopic + Reflex to [id number] 08:43:00 Test Item Value Reference Range Interpretation Comments Color, UA (test code Yellow = 5778-6) Clarity, UA (test Clear code = 5767-9) Specific [place], UA 1.014 1.001-1.035 (test code = 5811-5) pH, UA (test code = 6.5 5.0-8.0 5803-2) Protein, UA (test 20 mg/dL Negative A code = 49511-4) Glucose, UA (test Negative Negative code = 365) Ketones, UA (test Negative Negative code = 2514-8) Bilirubin, UA (test Negative Negative code = 28745-6) Blood, UA (test code Negative Negative = 20533-5) Nitrite, UA (test Negative Negative code = 5802-4) Leukocytes, UA (test Large Negative A code = 5799-2) Urobilinogen, UA 0.2 mg/dL 0.2-1 (test code = 86701-6) RBC, UA (test code = 3 See_Comment [Autom ated 04711-1) message] The system which generated this result [...] 3 See_Comment [Automate d (test code = 57897-5) zanderag e] The system which generated this result transmit marco reference range : /HPF. The reference range was not used to interpret this result as normal/abnormal . Specimen Source (test code = 2795) CHARLENE (test code = CHARLENE) Senior Warehouse Clerk ID - [auto]Senior Warehouse Clerk ID - tech Lab Interpretation Abnormal (test code = 29681-1) [facility] REFLEX URINE [id number] 08:43:00 Test Item Value Reference Range Interpretation [...] = 516) SOURCE(BEAKER) (test code = 2795) Senior Warehouse Clerk ID - [auto]Senior Warehouse Clerk ID - techPOC-Glucose [id number] 08:16:00 Test Item Value Reference Range Interpretation Comments POC-Glucose Meter (test 94 mg/dL 70-110 : TE STED AT [facility] code = 1538) [address] [facility], [address]: Senior Warehouse Clerk/Techni omar ID = [id number] for CUATE ORO Lab Interpretation (test Normal code = 29583-6) [facility] Hollywood[facility]GLUCOSE [id number] 08:16:00 Test Item Value Reference Range Interpretation Comments POC-GLUCOSE METER 94 mg/dL 70-110 : TESTED A T [facility] 6720 (BEAKER) (test [facility], = 1538) [address]: Senior Warehouse Clerk/Techni omar ID = [id number] for EL CUTLER POCT-GLUCOSE [id number] 22:23:00 Test Item Value Reference Range Interpretation Comments POC-GLUCOSE METER 116 mg/dL 70-110 H : TESTED A T [facility] 6720 (BEAKER) (test code = [facility], 1538) [address]: Senior Warehouse Clerk/Techni omar ID = [id number] for SILVIO NNIS, MIGUEL ANGEL CBC W/PLT COUNT & AUTO [id number] 19:34:00 Test Item Value Reference Range Interpretation [...] PERCENT (BEAKER) (test code = 2801) POCT-GLUCOSE [id number] 17:49:00 Test Item Value Reference Range Interpretation Comments POC-GLUCOSE METER 118 mg/dL 70-110 H : TESTED A T [facility] 6720 (BEAKER) (test code = [facility], 1538) [address]: Senior Warehouse Clerk/Techni omar ID = [id number] for Nadege Ulrichria POCT-GLUCOSE [id number] 12:17:00 Test Item Value Reference Range Interpretation Comments POC-GLUCOSE METER 147 mg/dL 70-110 H : TESTED A T [facility] 6720 (BEAKER) (test code = [facility], 1538) [address]: Senior Warehouse Clerk/Techni omar ID = [id number] for Nadege Ulrichria T4, [id number] 09:55:00 Test Item Value Reference Range Interpretation Comments Free T4 (test code = 0.72 ng/dL 0.7-1.48 3024-7) CHARLENE (test code = CHARLENE) Senior Warehouse Clerk ID - FLAKITO Lab Interpretation (test Normal code = 63275-5) [facility] Hollywood[facility]itamin B12 and [id number] 09:55:00 Test Item Value Reference Range Interpretation Comments Vitamin B12 (test 346 pg/mL 213-816 code = 2132-9) Folate (test code = 8.30 ng/mL See_Comment [Automa marco 2284-8) message] The system which generated this result transmit marco reference range : >=7.00. The reference range was not used to interpret this result as normal/abnormal . CHARLENE (test code = CHARLENE) Senior Warehouse Clerk ID - FLAKITO Lab Interpretation Normal (test code = 24793-5) [facility] Hollywood[facility], [id number] 09:55:00 Test Item Value Reference Range Interpretation Comments FREE T4 (BEAKER) (test code = 655) 0.72 ng/dL 0.70-1.48 Senior Warehouse Clerk ID - VANITASONVITAMIN B12 AND [id number] 09:55:00 Test Item Value Reference Range Interpretation Comments VITAMIN B12 (BEAKER) 346 pg/mL 213-816 (test code = 774) FOLATE (BEAKER) 8.30 ng/mL See_Comment [Automated message] (test code = 362) The system which generated this result transmitted ref erence range: >=7.00. The reference range was not used to interpr et this result as normal/abnormal . Senior Warehouse Clerk ID - FLAKITOHemoglobin [id number] 08:19:00 Test Item Value Reference Range Interpretation Comments Hemoglobin A1C (test code = 4548-4) 4.1 % 4.3-6.1 L Lab Interpretation (test code = Abnormal 45637-4) [facility] HollywoodHEMOGLOBIN [id number] 08:19:00 Test Item Value Reference Range Interpretation Comments HEMOGLOBIN A1C (BEAKER) (test code = 4.1 % 4.3-6.1 L 368) TSH/Free T4 If [id number] 06:50:00 Test Item Value Reference Range Interpretation Comments TSH (test code = 8.034 See_Comment H [Automated 45604-3) message] The system which generated this result transmit marco reference range : 0.350 - 4.940 uIU/mL. The reference range was not used to interpret this result as normal/abnormal . CHARLENE (test code = CHARLENE) Senior Warehouse Clerk ID - LEN L Lab Interpretation Abnormal (test code = 06123-4) [facility] Hollywood[facility]SH/FREE T4 IF [id number] 06:50:00 Test Item Value Reference Range Interpretation Comments THYROID STIMULATING HORMONE 8.034 uIU/mL 0.350-4.940 H (BEAKER) (test code = 772) Senior Warehouse Clerk ID - LEN LTroponin [id number] 05:22:00 Test Item Value Reference Range Interpretation Comments Troponin I (test code = <0.01 0-0.03 59214-2) CHARLENE (test code = CHARLENE) Troponin I [...] M Lab Interpretation (test Normal code = 44111-7) [facility] [id number] 05:22:00 Test Item Value Reference Range Interpretation [...] failure, acidosis, acute neurological disease, and persistent tachyarrhythmia.Senior Warehouse Clerk ID - JEREMY MCT, BRAIN, WITHOUT [id number] 04:15:00Unlisted Reason for Exam - Click Yes and Enter Reason Below->NoMERCY [facility]FIELD[facility]: [facility]ATTY BENEDICT : 1950 Sex: FFINAL REPORT [...] the right parietal calvarium. Signed: Andrea Dubose [facility] Verified Date/Time: 10/15/2020 04:15:32 CT brain without IV [id number] 04:15:00Interface, External Ris In - 10/15/2020 4:17 [...] Dubose Verified Date/Time: 10/15/2020 04:15:32 [facility] Met[facility] [id number] 03:13:00 Test Item Value Reference Range Interpretation [...] Calcium (test code = 8.9 mg/dL 8.4-10.2 52879-4) EGFR (test code = 82 mL/min/1.73 [place] [address]-2) NOT ACCURATE CREATININE CLEARANCE IN PREDICTING GLOMERULAR FILTRATION RATE . ESTIMATED GFR I S NOT APPLICABLE FOR DIALYSIS PATIENTS. CHARLENE (test code = CHARLENE) Senior Warehouse Clerk ID - JEREMY M Lab Interpretation Abnormal (test code = 61429-2) [facility] Hollywood[facility]esium2021-03-18 03:13:00 Test Item Value Reference Range Interpretation Comments Magnesium (test code = 1.6 mg/dL 1.6-2.6 71711-4) CHARLENE (test code = CHARLENE) Senior Warehouse Clerk ID - JEREMY M Lab Interpretation (test Normal code = 04308-5) [facility] HollywoodPhosphorus2021-03-18 03:13:00 Test Item Value Reference Range Interpretation Comments Phosphorus (test code = 3.0 mg/dL 2.3-4.7 2777-1) CHARLENE (test code = CHARLENE) Senior Warehouse Clerk ID - JEREMY M Lab Interpretation (test Normal code = 89541-7) [facility] HollywoodaPTT2021-03-18 03:13:00 Test Item Value Reference Range Interpretation Comments PTT (test code = 47931-9) 25.9 See_Comment [ Automated message] The system [employer] generated this result transmitted ref erence range: 22.5 - 3 6.0 seconds. The re ference range was not u sed to interpret this result as normal/abnor mal. Lab Interpretation (test Normal code = 25092-2) [facility] HollywoodAPTT2021-03-18 03:13:00 Test Item Value Reference Range Interpretation Comments PARTIAL THROMBOPLASTIN TIME 25.9 seconds 22.5-36.0 (BEAKER) (test code = 760) [id number] 03:13:00 Test Item Value Reference Range Interpretation Comments MAGNESIUM (BEAKER) (test code = 1.6 mg/dL 1.6-2.6 627) Senior Warehouse Clerk ID - JEREMY MBASIC METABOLIC [id number] 03:13:00 Test Item Value Reference Range Interpretation [...] S NOT APPLICABLE FOR DIALYSIS PATIEN TS. Senior Warehouse Clerk ID - JEREMY [id number] 03:13:00 Test Item Value Reference Range Interpretation Comments PHOSPHORUS (BEAKER) (test code = 3.0 mg/dL 2.3-4.7 604) Senior Warehouse Clerk ID - JEREMY MProthrombin time/[id number] 03:12:00 Test Item Value Reference Interpretation Comments Range Protime (test code = 12.8 See_Comment [Autom ated 5902-2) message] The system which generated this result transmitted reference range : 11.9 - 14.2 seconds. The reference range was not used to interpret this result as normal/abnormal . INR (test code = 0.99 See_Comment [Automated 6301-6) message] The system which generated this result [...] valves. Lab Interpretation Normal (test code = 31523-5) [facility] HollywoodPROTHROMBIN TIME/[id number] 03:12:00 Test Item Value Reference Range Interpretation Comments PROTIME (BEAKER) 12.8 seconds 11.9-14.2 (test code = 759) INR (BEAKER) (test 0.99 See_Comment [Automat ed message] code = 370) The system Nolio[employer] h generated this result transmitted ref erence range: [...] mechanical heart valves.CBC W/PLT COUNT & AUTO [id number] 02:51:00 Test Item Value Reference Range Interpretation [...] 0-1 PERCENT (BEAKER) (test code = 2801) [id number] 00:00:00Ordered by an unspecified provider.[facility]
--- NOTE | 2021-02-28 01:32 | EDPHYS ---
Physician Documentation [facility] Name: Carrol Dickens Age: 70 yrs Sex: Female : 1950 Arrival Date: 02/28/2021 Time: 00:56 Bed 24 Private MD: ED Physician Gian Bauman HPI: 02/28 01:25 This 70 yrs old Female presents to ER via Unassigned with complaints of Fall zahra Injury. 01:25 Details of fall: The patient fell from an upright position, while walking. Onset: The zahra symptoms/episode began/occurred just prior to arrival. Associated injuries: The patient sustained left hip, lateral aspect of left thigh, left gluteal fold, left hamstring, left inner thigh, medial aspect of left thigh, left upper thigh and left quadriceps, obvious fracture, painful injury, swelling. Severity of symptoms: At their worst the symptoms were moderate, in the emergency department the symptoms are unchanged. The patient has not experienced similar symptoms in the past. Historical: - Allergies: 02:57 sodium bisulfite; ea - PMHx: 02:57 Anxiety; Depression; UTI; GERD; ea - Immunization history: Last tetanus immunization: unknown. - Family history:: not pertinent. - Social history:: Smoking status: unknown. ROS: 01:25 Constitutional: Negative for fever, chills, and weight loss, Eyes: Negative for injury, zahra pain, redness, and discharge, ENT: Negative for injury, pain, and discharge, Neck: Negative for injury, pain, and swelling, Cardiovascular: Negative for chest pain, palpitations, and edema, Respiratory: Negative for shortness of breath, cough, wheezing, and pleuritic chest pain, Abdomen/GI: Negative for abdominal pain, nausea, vomiting, diarrhea, and constipation, Back: Negative for injury and pain, : Negative for injury, bleeding, discharge, and swelling, Skin: Negative for injury, rash, and discoloration, Neuro: Negative for headache, weakness, numbness, tingling, and seizure, Psych: Negative for depression, anxiety, suicide ideation, homicidal ideation, and hallucinations, Allergy/Immunology: Negative for hives, rash, and allergies, Endocrine: Negative for neck swelling, polydipsia, polyuria, polyphagia, and marked weight changes, Hematologic/Lymphatic: Negative for swollen nodes, abnormal bleeding, and unusual bruising. 01:25 MS/extremity: Positive for decreased range of motion, pain, swelling, tenderness, of the left hip, lateral aspect of left thigh, left gluteal fold, left hamstring, left inner thigh, medial aspect of left thigh, left upper thigh and left quadriceps. Exam: 01:25 Constitutional: This is a well developed, well nourished patient who is awake, alert, zahra and in no acute distress. Head/Face: Normocephalic, atraumatic. Eyes: Pupils equal round and reactive to light, extra-ocular motions intact. Lids and lashes normal. Conjunctiva and sclera are non-icteric and not injected. Cornea within normal limits. Periorbital areas with no swelling, redness, or edema. ENT: Nares patent. No nasal discharge, no septal abnormalities noted. Tympanic membranes are normal and external auditory canals are clear. Oropharynx with no redness, swelling, or masses, exudates, or evidence of obstruction, uvula midline. Mucous membranes moist. Neck: Trachea midline, no thyromegaly or masses palpated, and no cervical lymphadenopathy. Supple, full range of motion without nuchal rigidity, or vertebral point tenderness. No Meningismus. Chest/axilla: Normal chest wall appearance and motion. Nontender with no deformity. No lesions are appreciated. Cardiovascular: Regular rate and rhythm with a normal S1 and S2. No gallops, murmurs, or rubs. Normal PMI, no JVD. No pulse deficits. Respiratory: Lungs have equal breath sounds bilaterally, clear to auscultation and percussion. No rales, rhonchi or wheezes noted. No increased work of breathing, no retractions or nasal flaring. Abdomen/GI: Soft, non-tender, with normal bowel sounds. No distension or tympany. No guarding or rebound. No evidence of tenderness throughout. Back: No spinal tenderness. No costovertebral tenderness. Full range of motion. Female : Normal external genitalia. Skin: Warm, dry with normal turgor. Normal color with no rashes, no lesions, and no evidence of cellulitis. Neuro: Awake and alert, GCS 15, oriented to person, place, time, and situation. Cranial nerves II-XII grossly intact. Motor strength 5/5 in all extremities. Sensory grossly intact. Cerebellar exam normal. Normal gait. Psych: Awake, alert, with orientation to person, place and time. Behavior, mood, and affect are within normal limits. 01:25 Musculoskeletal/extremity: Extremities: grossly normal except: noted in the left hip, lateral aspect of left thigh, left gluteal fold, left hamstring, left inner thigh, medial aspect of left thigh, left upper thigh and left quadriceps: contusion, decreased ROM, pain, ROM: limited active range of motion due to pain, limited passive range of motion due to pain, Circulation is intact in all extremities. Sensation intact. Compartment Syndrome exam of affected extremity: is normal. DVT Exam: negative Homans' sign noted on exam, no appreciated bluish discoloration, no erythema, no increased warmth, pain, swelling, tenderness. 03:05 ECG was reviewed by the Attending Physician. [facility] Vital Signs: 02:42 BP 146 / 91; Pulse 77; Resp 18; Pulse Ox 99% on R/A; ea 03:30 Temp 98.5; ea 03:32 BP 154 / 85; Pulse 88; Resp 19; Pulse Ox 99% on R/A; ea 04:15 BP 160 / 95; Pulse 88; Resp 16; Pulse Ox 98% ; ea Gail Coma Score: 02:42 Eye Response: spontaneous(4). Verbal Response: oriented(5). Motor Response: obeys ea commands(6). Total: 15. 03:32 Eye Response: spontaneous(4). Verbal Response: oriented(5). Motor Response: obeys ea commands(6). Total: 15. 04:15 Eye Response: spontaneous(4). Verbal Response: oriented(5). Motor Response: obeys ea commands(6). Total: 15. Trauma Score (Adult): 02:42 Eye Response: spontaneous(1); Verbal Response: oriented(1); Motor Response: obeys ea commands(2); Systolic BP: > 89 mm Hg(4); Respiratory Rate: 10 to 29 per min(4); [place] Score: 15; Trauma Score: 12 MDM: 01:[address] [facility] 01:29 Differential diagnosis: fracture, multiple trauma, sprain, strain. Data reviewed: vital zahra signs, nurses notes, lab test result(s), EKG, radiologic studies, plain films. Data interpreted: watermelon inspector: rate is 89 beats/min, rhythm is regular, Pulse oximetry: on room air is 100 %. Test interpretation: by ED physician or midlevel provider: ECG, plain radiologic studies. Counseling: I had a detailed discussion with the patient and/or guardian regarding: the historical points, exam findings, and any diagnostic results supporting the discharge/admit diagnosis, lab results, radiology results. 02/28 01:08 Order name: Basic Metabolic Panel [facility] 02/28 01:08 Order name: CBC with Diff [facility] 02/28 01:08 Order name: LFT's; Complete Time: 04:[address] [facility] 02/28 01:08 Order name: Magnesium; Complete Time: 04:[address] [facility] 02/28 01:08 Order name: NT PRO-BNP; Complete Time: 04:[address] [facility] 02/28 01:08 Order name: PT-INR; Complete Time: 04:[address] [facility] 02/28 01:08 Order name: Troponin (emerg Dept Use Only); Complete Time: 04:[address] [facility] 02/28 01:08 Order name: XRAY Chest (1 view) [facility] 02/28 01:08 Order name: Lipase; Complete Time: 04:[address] [facility] 02/28 01:08 Order name: Pelvis XRAY [facility] 02/28 01:08 Order name: Hip Left [address] [facility] 02/28 01:08 Order name: Basic Metabolic Panel; Complete Time: 04:24 EDMS 02/28 01:08 Order name: CBC with Automated Diff; Complete Time: 04:24 [facility]MS 02/28 01:08 Order name: EKG; Complete Time: 01:[address] [facility] 02/28 01:08 Order name: Cardiac monitoring; Complete Time: 02:[address] [facility] 02/28 01:08 Order name: EKG - Nurse/Tech; Complete Time: 02:[address] [facility] 02/28 01:08 Order name: IV Saline Lock; Complete Time: 02:[address] [facility] 02/28 01:08 Order name: Labs collected and sent; Complete Time: 02:[address] [facility] 02/28 01:08 Order name: O2 Per Protocol; Complete Time: 02:[address] [facility] 02/28 01:25 Order name: Femur Left XRAY [facility] 02/28 01:08 Order name: O2 Sat Monitoring; Complete Time: 02:[address] [facility] 02/28 01:08 Order name: Martel; Complete Time: 02:39 zahra EC:05 Rate is 106 beats/min. Rhythm is regular. QRS [place] is Normal. [place] interval is normal. zahra QRS interval is normal. QT interval is normal. No Q waves. T waves are Normal. No ST changes noted. Clinical impression: Sinus tachycardia and No evidence of ischemia. Interpreted by me. Reviewed by me. Administered Medications: :43 Drug: NS 0.9% 1000 ml Route: IV; Rate: 125 ml/hr; Site: right hand; ea 02:41 Follow up: IV Status: Infusion continued upon transfer ea 01:44 Drug: NS 0.9% 500 ml Route: IV; Rate: bolus; Site: right hand; ea 02:41 Follow up: Response: No adverse reaction; IV Status: Completed infusion; IV Intake: ea 500ml 01:44 Drug: morphine 4 mg Route: IVP; Site: right hand; ea 02:41 Follow up: Response: No adverse reaction; Pain is decreased ea 01:44 Drug: Zofran (Ondansetron) 4 mg Route: IVP; Site: right hand; ea 02:41 Follow up: Response: No adverse reaction ea 02:41 Drug: Dilaudid (HYDROmorphone) 1 mg Route: IVP; Site: right hand; ea 03:00 Follow up: Response: No adverse reaction ea 04:07 Drug: Dilaudid (HYDROmorphone) 1 mg Route: IVP; Site: right hand; ea 04:16 Follow up: Response: No adverse reaction ea 04:33 Drug: Magnesium Sulfate 1 grams Route: IVPB; Infused Over: 1 hrs; Site: right hand; ea 04:33 Follow up: IV Status: Infusion continued upon admission ea 04:33 Drug: NS 0.9% 500 ml Route: IV; Rate: bolus; Site: right hand; ea 04:33 Follow up: IV Status: Infusion continued upon transfer ea 04:33 Drug: Dilaudid (HYDROmorphone) 1 mg Route: IVP; Site: right hand; ea 04:33 Follow up: Response: medication administered at transfer ea Disposition Summary: 02/28/21 01:32 Transfer Ordered Transfer Location: [facility] zahra Reason: Higher level of care zahra Condition: Stable zahra Problem: new zahra Symptoms: have improved zahra Accepting Physician: ORTHO TRAUMA(02/28/21 04:34) ea Diagnosis - Fall due to bumping against object zahra - Intertrochanteric fracture of femur - LEFT zahra - Hypomagnesemia zahra - Anemia, unspecified zahra Forms: - Medication Reconciliation Form zahra - SBAR form zahra Signatures: Dispatcher [employer] EDGian Bartholomew MD MD cha Antunez, Elena RN RN blanka Corrections: (The following items were deleted from the chart) 04:28 01:32 ORTHO TRAUMA [facility] 04:28 04:28 ORTHO TRAUMA [facility] 04:31 01:36 CORONAVIRUS+MR.LAB.BRZ ordered. NIGHAT EDMS 04:34 04:[address] [facility] [place]
[2021-02-28] MEDS ORDERED: NA CHLORIDE 0.9% 500 ML ONE (02:02)
[2021-02-28] MEDS ORDERED: MORPHINE 4 MG/ML SYR ONE (02:02)
[2021-02-28] MEDS ORDERED: ONDANSETRON 4 MG/2 ML VIAL ONE (02:02)
[2021-02-28] MEDS ORDERED: HYDROMORPHONE HCL 1 MG/ML INJ ONE ×3 (02:42→04:48)
[2021-02-28] MEDS ORDERED: NA CHLORIDE 0.9% 1,000 ML ONE (02:42)
[2021-02-28 03:32] LABS: Absolute Lymphocytes (CBC) 0.9 K/uL (0.7-4.9); Basophils % 0.3 % (0-1.3); Lymphocytes % 9.7 % (15.3-44.8); MPV 7.4 fL (7.6-11.3); RBC Red Blood Cell Count 3.07 M/uL (3.86-4.86)
[2021-02-28 03:49] LABS: Protime INR 0.8
[2021-02-28 04:00] LABS: ALT/SGPT 20 U/L (12-78); Albumin 3.2 g/dL (3.4-5.0); Alkaline Phosphatase 92 U/L (45-117); BUN Blood Urea Nitrogen 19 mg/dL (7-18); Bicarbonate 16 mmol/L (21-32); Bilirubin Direct 0.1 mg/dL (0-0.2); Bilirubin Total 0.4 mg/dL (0.2-1.0); Glucose Level 78 mg/dL (74-106); Lipase 168 U/L (73-393); NT PRO-BNP 285 pg/mL (<125); Protein, Total 6.6 g/dL (6.4-8.2); Sodium Level 141 mmol/L (136-145); Troponin (Emerg Dept Use Only) < 0.02 ng/mL (0.0-0.045)
[2021-02-28 04:03] LABS: AST/SGOT 24 U/L (15-37); Magnesium 1.7 mg/dL (1.8-2.4); Potassium 4.1 mmol/L (3.5-5.1)
--- NOTE | 2021-02-28 04:35 | ER ---
Nurse's Notes [facility] Name: Carrol Dickens Age: 70 yrs Sex: Female : 1950 Arrival Date: 02/28/2021 Time: 00:56 Bed 24 Private MD: Diagnosis: Fall due to bumping against object;Intertrochanteric fracture of femur-LEFT;Hypomagnesemia;Anemia, unspecified Presentation: 02/28 01:00 Chief complaint: EMS states: Reports she tripped and fell and now left hip hurts. ea 02:57 Coronavirus screen: At this time, the client does not indicate any symptoms associated ea with coronavirus-19. Ebola Screen: No symptoms or risks identified at this time. Initial Sepsis Screen: Does the patient meet any 2 criteria? No. Patient's initial sepsis screen is negative. Does the patient have a suspected source of infection? No. Patient's initial sepsis screen is negative. Risk Assessment: Do you want to hurt yourself or someone else? Patient reports no desire to harm self or others. Onset of symptoms was February 28, 2021. 02:57 Acuity: SHIN 3 ea 02:57 Method Of Arrival: EMS: [facility] ea 04:15 Trauma event details: Injury occurred in the [facility], Injury occurred: ea February 28, 2021. Trauma Activation: Alert Physician: ED Physician; Name: ; Notified At: ; Arrived At: Physician: General Surgeon; Name: ; Notified At: ; Arrived At: Physician: Radiology; Name: ; Notified At: ; Arrived At: Physician: Respiratory; Name: ; Notified At: ; Arrived At: Physician: Lab; Name: ; Notified At: ; Arrived At: Historical: - Allergies: 02:57 sodium bisulfite; ea - PMHx: 02:57 Anxiety; Depression; UTI; GERD; ea - Immunization history: Last tetanus immunization: unknown. - Family history:: not pertinent. - Social history:: Smoking status: unknown. Screenin:42 Abuse screen: Denies threats or abuse. Nutritional screening: No deficits noted. ea Tuberculosis screening: No symptoms or risk factors identified. Fall Risk None identified. Primary Survey: 02:00 NO uncontrolled hemorrhage observed. A: The patient is alert. Airway: patent. ea Breathing/Chest: Respiratory pattern: regular, Respiratory effort: spontaneous. Circulation: Skin color: pink. Disability Alert. Exposure/Environment: A warming method has been applied: A warm blanket has been provided to the patient. 02:56 Reassessment Airway Airway Patent Breathing/Chest Respiratory pattern Regular ea Respiratory effort Spontaneous Unlabored Circulation Color [place] Temperature Warm Disability Alert. Assessment: 01:00 General: Appears uncomfortable, Behavior is appropriate for age. Pain: Complains of ea pain in left leg and left hip. Neuro: Level of Consciousness is awake, alert, obeys commands, Oriented to person, place, time. Respiratory: Airway is patent Respiratory effort is even, unlabored, Respiratory pattern is regular, symmetrical. Derm: Skin is pink, warm \T\ dry. 03:31 Reassessment: Patient and/or family updated on plan of care and expected duration. Pain ea level reassessed. Patient is alert, oriented x 3, equal unlabored respirations, skin warm/dry/pink. Awaiting on transportation. 04:08 Reassessment: Patient and/or family updated on plan of care and expected duration. Pain ea level reassessed. Patient is alert, oriented x 3, equal unlabored respirations, skin warm/dry/pink. Awaiting on ambulance. 04:16 Reassessment: Patient and/or family updated on plan of care and expected duration. Pain ea level reassessed. Patient is alert, oriented x 3, equal unlabored respirations, skin warm/dry/pink. EMS at facility for transfer, pt left ED via stretcher per EMS, pt tolerating well. Vital Signs: 02:42 BP 146 / 91; Pulse 77; Resp 18; Pulse Ox 99% on R/A; ea 03:30 Temp 98.5; ea 03:32 BP 154 / 85; Pulse 88; Resp 19; Pulse Ox 99% on R/A; ea 04:15 BP 160 / 95; Pulse 88; Resp 16; Pulse Ox 98% ; ea Gail Coma Score: 02:42 Eye Response: spontaneous(4). Verbal Response: oriented(5). Motor Response: obeys ea commands(6). Total: 15. 03:32 Eye Response: spontaneous(4). Verbal Response: oriented(5). Motor Response: obeys ea commands(6). Total: 15. 04:15 Eye Response: spontaneous(4). Verbal Response: oriented(5). Motor Response: obeys ea commands(6). Total: 15. Trauma Score (Adult): 02:42 Eye Response: spontaneous(1); Verbal Response: oriented(1); Motor Response: obeys ea commands(2); Systolic BP: > 89 mm Hg(4); Respiratory Rate: 10 to 29 per min(4); [place] Score: 15; Trauma Score: 12 ED Course: 00:56 Patient arrived in ED. mw2 00:56 Renu Coy RN is Primary Nurse. ea 01:04 Gian Bauman MD is Attending Physician. zahra 01:34 initiated a transfer with Anni Basurto from [facility]. mw2 01:50 administrative approval given by Anni Basurto/ patient has been accepted to [address] ER/ accepted the patient in transfer/ report to be called to [phone]. 02:00 Arm band placed on right wrist. Patient placed in an exam room, on a stretcher, on ea pulse oximetry. 02:00 Patient has correct armband on for positive identification. Bed in low position. Call ea light in reach. Side rails up X2. 02:24 XRAY Chest (1 view) In Process Unspecified. EDMS 02:24 Pelvis XRAY In Process Unspecified. EDMS 02:24 Hip Left 2 View XRAY In Process Unspecified. EDMS 02:24 Femur Left XRAY In Process Unspecified. EDMS 02:42 Patient maintains SpO2 saturation greater than 95% on room air. Thermoregulation: warm ea blanket given to patient. 02:58 Triage completed. ea 03:30 No provider procedures requiring assistance completed. Patient transferred, IV remains ea in place. Administered Medications: 01:43 Drug: NS 0.9% 1000 ml Route: IV; Rate: 125 ml/hr; Site: right hand; ea 02:41 Follow up: IV Status: Infusion continued upon transfer ea :44 Drug: NS 0.9% 500 ml Route: IV; Rate: bolus; Site: right hand; ea 02:41 Follow up: Response: No adverse reaction; IV Status: Completed infusion; IV Intake: ea 500ml :44 Drug: morphine 4 mg Route: IVP; Site: right hand; ea 02:41 Follow up: Response: No adverse reaction; Pain is decreased ea 01:44 Drug: Zofran (Ondansetron) 4 mg Route: IVP; Site: right hand; ea 02:41 Follow up: Response: No adverse reaction ea 02:41 Drug: Dilaudid (HYDROmorphone) 1 mg Route: IVP; Site: right hand; ea 03:00 Follow up: Response: No adverse reaction ea 04:07 Drug: Dilaudid (HYDROmorphone) 1 mg Route: IVP; Site: right hand; ea 04:16 Follow up: Response: No adverse reaction ea 04:33 Drug: Magnesium Sulfate 1 grams Route: IVPB; Infused Over: 1 hrs; Site: right hand; ea 04:33 Follow up: IV Status: Infusion continued upon admission ea 04:33 Drug: NS 0.9% 500 ml Route: IV; Rate: bolus; Site: right hand; ea 04:33 Follow up: IV Status: Infusion continued upon transfer ea 04:33 Drug: Dilaudid (HYDROmorphone) 1 mg Route: IVP; Site: right hand; ea 04:33 Follow up: Response: medication administered at transfer ea Intake: 02:41 IV: 500ml; Total: 500ml. ea 02:42 PO: 0ml; Total: 500ml. ea Outcome: 01:32 ER care complete, transfer ordered by . zahra 03:30 Transferred by ground EMS to [facility], Transfer form completed. ea 03:30 Condition: stable 03:30 Patient's length of stay was not longer than 2 hours. 04:34 Patient left the ED. ea Signatures: Dispatcher [employer] EDGian Bartholomew MD MD cha Antunez, Elena, RN RN Ramya Saldana mw2 Corrections: (The following items were deleted from the chart) 04:16 04:14 Reassessment: Patient and/or family updated on plan of care and expected ea duration. Pain level reassessed. Patient is alert, oriented x 3, equal unlabored respirations, skin warm/dry/pink. EMS at facility for transfer, pt left ED via stretcher per EMS, pt tolerating well ea
[2021-02-28 04:41] VITALS: TEMP 98.5
[2021-02-28 04:45] VITALS: BP 160/95; O2SAT 98
[2021-02-28] MEDS ORDERED: Magnesium Sulfate 2gm IVPB 2 G/50 ML BAG IV ONE (04:52)
--- NOTE | 2021-02-28 10:05 | RAD REPORT ---
EXAM DESCRIPTION: RAD - Pelvis - 02/28/2021 2:24 am CLINICAL HISTORY: PAIN COMPARISON: Hip Left 2 View dated 02/28/2021; Femur Left dated 02/28/2021 FINDINGS: AP pelvis, left hip and left femur - multiple projections are submitted. Intratrochanteric fracture is present of the proximal left femur. No dislocation is evident.
--- NOTE | 2021-02-28 10:06 | RAD REPORT ---
EXAM DESCRIPTION: RAD - Chest Single View - 02/28/2021 2:24 am CLINICAL HISTORY: COUGH Chest pain. COMPARISON: Chest Single View dated 10/14/2020; CHEST SINGLE VIEW dated 07/25/2012; ABDOMEN ACUTE SER IES dated 03/20/2010; CHEST SINGLE VIEW dated 11/19/2008 FINDINGS: Portable technique limits examination quality. The lungs are grossly clear. The heart is normal in size. No displaced fractures.Cervical spine hardw are plate. IMPRESSION: No acute intrathoracic process suspected.
--- NOTE | 2021-03-01 12:27 | RAD REPORT ---
EXAM DESCRIPTION: RAD - Femur Left - 02/28/2021 2:25 am CLINICAL HISTORY: PAIN COMPARISON: Hip Left 2 View dated 02/28/2021; Femur Left dated 02/28/2021 FINDINGS: AP pelvis, left hip and left femur - multiple projections are submitted. Intratrochanteric fracture is present of the proximal left femur. No dislocation is evident
--- NOTE | 2021-03-01 12:27 | RAD REPORT ---
EXAM DESCRIPTION: RAD - Hip Left 2 View - 02/28/2021 2:24 am CLINICAL HISTORY: PAIN COMPARISON: Hip Left 2 View dated 02/28/2021; Femur Left dated 02/28/2021 FINDINGS: AP pelvis, left hip and left femur - multiple projections are submitted. Intratrochanteric fracture is present of the proximal left femur. No dislocation is evident
== END 2021-02-28 04:34 | disposition short-term general hospital (02) ==
LOC: ER 00:06
DX: S72.142A Displaced intertrochanteric fracture of left femur, initial encounter for closed fracture (principal); W01.0XXA Fall on same level from slipping, tripping and stumbling without subsequent striking against object, initial encounter; E83.42 Hypomagnesemia; Z20.822 Contact with and (suspected) exposure to COVID-19; D64.9 Anemia, unspecified; F41.9 Anxiety disorder, unspecified; F32.9 Major depressive disorder, single episode, unspecified; K21.9 Gastro-esophageal reflux disease without esophagitis
CPT/HCPCS: 93005; 85025; 80048; 36415; 83735; 85610; 80076; 84484; 83690; 83880; 71045; 72170; 73502; 73552; U0003; J3475; J1170 ×3; J7040; J7030; J2405; 96361; 96374; 96375; 99285; G0390

== ENCOUNTER → 2023-07-19 | Emergency (ER) | payer OTHER ==
[~2023-07-19] MED LIST: HYDROCODONE/APAP 5/325 MG TAB ONE; LIDOCAINE 1% 20 ML MDV ONE; LIDOCAINE 1% MPF 5 ML VIAL ONE; MUPIROCIN 2% OINT 22GM TUBE TOP ONE; TDAP (DIPHTH,PERTUSS(ACELL),TET VAC) 0.5 ML VIAL IMVAC ONE
--- NOTE | 2023-07-19 10:40 | RAD REPORT ---
EXAM DESCRIPTION: CT - [id number] - 07/19/2023 10:27 am CLINICAL HISTORY: Trauma, head and neck injury. fall COMPARISON: Head C Spine Mpr Wo Con dated 10/14/2020 TECHNIQUE: Axial 5 mm thick images of the head were obtained. Axial 2 mm thick images of the cervical spine were obtained with sagittal and coronal reconstruction images generated and reviewed. All CT scans are performed using dose optimization technique as appropriate and may include automated exposure control or mA/KV adjustment according to patient size. FINDINGS: CT HEAD WITHOUT CONTRAST: No acute hemorrhage, hydrocephalus or extra-axial collection is identified.Mild generalized brain atr ophy is present with mild periventricular and deep white matter chronic microvascular ischemic change s.No areas of brain edema or midline shift. The paranasal sinuses and mastoids are clear.Vertebral atherosclerosis, greater on the right.The calv arium is intact. CT CERVICAL SPINE WITHOUT CONTRAST: No fracture or subluxation.Extensive postsurgical changes are present involving the cervical spine wi th hardware in place. Posterior decompression noted spanning C3-5. 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 IMPRESSION: No acute intracranial or cervical spine findings.
--- NOTE | 2023-07-19 11:51 | ER ---
Nurse's Notes [facility] Name: Carrol Dickens Age: 73 yrs Sex: Female : 1950 Arrival Date: 07/19/2023 Time: 09:33 Bed 6 Private MD: Diagnosis: Forehead laceration;Fall on same level, unspecified Presentation: 07/19 09:43 Chief complaint: Patient states: Stumbled when taking in large trash can from the [facility] [address] at 0815 AM. Hit R side of face/forehead. Denies LOC. Laceration and abrasions noted to R side of face. Bleeding controlled. Coronavirus screen: Vaccine status: Patient reports receiving the 2nd dose of the covid vaccine. Client denies travel out of the [place] in the last 14 days. At this time, the client does not indicate any symptoms associated with coronavirus-19. Ebola Screen: Patient denies travel to an Ebola-affected area in the 21 days before illness onset. Initial Sepsis Screen: Does the patient meet any 2 criteria? No. Patient's initial sepsis screen is negative. Does the patient have a suspected source of infection? Yes: Skin breakdown/wound. Risk Assessment: Do you want to hurt yourself or someone else? Patient reports no desire to harm self or others. Onset of symptoms was July 19, 2023. 09:43 Method Of Arrival: Ambulatory [facility] 09:43 Acuity: SHIN 3 ll1 Triage Assessment: 09:45 General: Appears uncomfortable, Behavior is calm, cooperative, appropriate for age. ll1 Pain: Complains of pain in face Pain currently is 9 out of 10 on a pain scale. Quality of pain is described as aching, throbbing. Derm: Bruising that is dark purple, Reports pain. Musculoskeletal: Circulation, motion, and sensation intact. Capillary refill < 3 seconds, Reports pain in R side of face. Injury Description: Head injury. Historical: - Allergies: :43 sodium bisulfite; ll1 - PMHx: 09:43 Anxiety; Depression; GERD; UTI; ll1 - Immunization history:: Adult Immunizations up to date. - Social history:: Smoking status: Patient reports the use of cigarette tobacco products, smokes one-half pack cigarettes per day. Screenin:21 [facility] ED Fall Risk Assessment (Adult) Score/Fall Risk Level 3 or more points = High iw Risk Oriented to surroundings. Abuse screen: Denies threats or abuse. Denies injuries from another. Nutritional screening: No deficits noted. Tuberculosis screening: No symptoms or risk factors identified. Assessment: 10:20 General: Appears in no apparent distress. Behavior is calm, cooperative. Pain: iw Complains of pain in forehead. Neuro: Level of Consciousness is awake, alert, obeys commands, Oriented to person, place, time, situation, Moves all extremities. Full function. Cardiovascular: Patient's skin is warm and dry. Respiratory: Respiratory effort is even, unlabored, Respiratory pattern is regular. Derm: Musculoskeletal: Capillary refill Range of motion: intact in all extremities. Injury Description: Avulsion sustained to forehead is partial was sustained 30-60 minutes ago. Vital Signs: 09:43 BP 191 / 113; Pulse 99; Resp 18; Temp 98.2; Pulse Ox 100% ; Pain 9/10; ll1 10:19 BP 149 / 92; Pulse 89; Resp 16; Pulse Ox 100% on R/A; iw 12:06 Weight 58.97 kg (R); iw 09:43 Pain Scale: Adult ll1 ED Course: 09:34 Patient arrived in ED. im 09:34 Edil Tate DO is Attending Physician. ms3 09:43 Arm band placed on Patient placed in an exam room, on a stretcher. ll1 09:45 Triage completed. ll1 10:17 Stephany Ferrer, RHONDA is Primary Nurse. iw 10:22 Patient has correct armband on for positive identification. Pulse ox on. NIBP on. iw 10:27 CT Head C Spine In Process Unspecified. EDMS 11:50 Chris Decker DO is Referral Physician. ms3 Administered Medications: 11:32 Drug: Lidocaine-Epinephrine Infiltration -1%: (1:100,000) 10 ml 20 ml Infiltration kc6 once; to bedside Volume: 20 ml; Route: Infiltration; 11:54 Drug: Bacitracin Topical Ointment (500 unit/g) 1 application Topical once Route: iw Topical; Site: wound; Outcome: 11:51 Discharge ordered by . ms3 12:28 Patient left the ED. ld1 Signatures: Dispatcher [employer] EDMS Stephany Ferrer RN RN iw Gail Ruiz RN RN ll1 Edil Tate, DO ms3 Marlyn Tate RN RN ld1 Barbara Styles RN RN kc6 Amanda Cabello Corrections: (The following items were deleted from the chart) 09:48 09:43 Chief complaint: Patient states: Stumbled when taking in large trash can from the [facility] [address] at 0815 AM. Hit L side of face/forehead. Denies LOC. Laceration and abrasions noted to L side of face. Bleeding controlled. [facility]
--- NOTE | 2023-07-19 11:51 | EDPHYS ---
Physician Documentation [facility] Name: Carrol Dickens Age: 73 yrs Sex: Female : 1950 Arrival Date: 07/19/2023 Time: 09:33 Bed 6 Private MD: ED Physician Edil Tate HPI: 07/19 09:52 This 73 yrs old Female presents to ER via Ambulatory with complaints of Fall Injury, ms3 Laceration To Forehead. 09:52 73-year-old female with past medical history of anxiety depression, GERD, UTI presents ms3 to the emergency department status post trip and fall while bringing her garbage can in today. Patient states she is having 9/10 right forehead pain. Patient denies loss of consciousness. Patient endorses headache. Patient denies alleviating or inciting factors. Historical: - Allergies: 09:43 sodium bisulfite; ll1 - PMHx: 09:43 Anxiety; Depression; GERD; UTI; ll1 - Immunization history:: Adult Immunizations up to date. - Social history:: Smoking status: Patient reports the use of cigarette tobacco products, smokes one-half pack cigarettes per day. ROS: 09:52 Constitutional: Negative for fever, and chills. Neck: Negative for injury, pain, and ms3 swelling, Cardiovascular: Negative for chest pain, and palpitations. Respiratory: Negative for shortness of breath, cough, wheezing, and pleuritic chest pain, Abdomen/GI: Negative for abdominal pain, nausea, vomiting, diarrhea, and constipation, 09:52 Skin: Negative for injury, rash, and discoloration, 09:52 Skin: Positive for laceration(s), 09:52 All other systems are negative, Exam: 09:52 Constitutional: This is a well developed, well nourished patient who is awake, alert, ms3 and in no acute distress. 09:52 Cardiovascular: Regular rate and rhythm with a normal S1 and S2. No gallops, murmurs, or rubs. Normal PMI, no JVD. No pulse deficits. Respiratory: Lungs have equal breath sounds bilaterally, clear to auscultation and percussion. No rales, rhonchi or wheezes noted. No increased work of breathing, no retractions or nasal flaring. Abdomen/GI: Soft, non-tender, with normal bowel sounds. No distension or tympany. No guarding or rebound. No evidence of tenderness throughout. 09:52 Head/face: Noted is abrasion(s), that are moderate, of the forehead and right cheek, a laceration(s), that is deep, 4 cm(s), of the forehead, Vital Signs: 09:43 BP 191 / 113; Pulse 99; Resp 18; Temp 98.2; Pulse Ox 100% ; Pain 9/10; ll1 10:19 BP 149 / 92; Pulse 89; Resp 16; Pulse Ox 100% on R/A; iw 12:06 Weight 58.97 kg (R); iw 09:43 Pain Scale: Adult ll1 Laceration: 11:51 Wound Repair of 4cm ( 1.6in ) subcutaneous laceration to forehead. Irregularly shaped.. ms3 Minimal bleeding noted.. Distal neuro/vascular/tendon intact. Anesthesia: Local anesthetic administered with 6 mls of 1% lidocaine. Wound prep: Moderate cleansing by nurse by me. Skin closed with 4 6-0 Prolene using simple sutures and sterile technique. Dressed with Bacitracin, 4x4's. Patient tolerated well. MDM: 09:51 Patient medically screened. ms3 09:52 Differential diagnosis: abrasion, closed head injury, contusion, fracture, sprain, ms3 strain. 11:51 Data reviewed: vital signs, nurses notes, radiologic studies, CT scan, and as a result, ms3 I will discharge patient. I considered the following discharge prescriptions or medication management in the emergency department Medications were administered in the Emergency Department. See MAR. Independent interpretation of the following test(s) in the Emergency Department CT Scan: My interpretation is CT head images reviewed by me do not reveal ICH. Counseling: I had a detailed discussion with the patient and/or guardian regarding the historical points, exam findings, and any diagnostic results supporting the discharge/admit diagnosis, radiology results, the need for outpatient follow up, to return to the emergency department if symptoms worsen or persist or if there are any questions or concerns that arise at home. Special discussion: I discussed with the patient/guardian in detail that at this point there is no indication for admission to the hospital. It is understood, however, that if the symptoms persist or worsen the patient needs to return immediately for re-evaluation. ED course: Wound sutured without complications. Patient to follow-up with Dr. Tejada in 1 week for suture removal. Patient understands and agrees with plan. All questions were answered. Return precautions discussed include worsening symptoms, or any other concerns.. 07/19 10:14 Order name: CT Head C Spine; Complete Time: 10:51 ms3 Administered Medications: 11:32 Drug: Lidocaine-Epinephrine Infiltration -1%: (1:100,000) 10 ml 20 ml Infiltration kc6 once; to bedside Volume: 20 ml; Route: Infiltration; 11:54 Drug: Bacitracin Topical Ointment (500 unit/g) 1 application Topical once Route: iw Topical; Site: wound; Disposition Summary: 07/19/23 11:51 Discharge Ordered Notes: Location: Home ms3 Condition: Stable ms3 Diagnosis - Forehead laceration ms3 - Fall on same level, unspecified ms3 Followup: ms3 - With: Chris Decker DO - When: 1 week - Reason: Staple/Suture removal Discharge Instructions: - Discharge Summary Sheet ms3 - Facial Laceration, [id number] ms3 Forms: - Medication Reconciliation Form ms3 - Thank You Letter ms3 - Antibiotic Education ms3 - Prescription Opioid Use ms3 - Patient Portal Instructions ms3 - Leadership Thank You Letter ms3 Signatures: Dispatcher [employer] Stephany Choudhury RN RN iw Gail Ruiz RN RN ll1 Edil Tate, DO DO ms3 Barbara Styles RN RN kc6
[2023-07-19 12:38] VITALS: TEMP 98.2; O2SAT 100
[2023-07-19 12:43] VITALS: BP 149/92
== END ==
LOC: ER 09:33
PROC: 0HQ1XZZ Repair Face Skin, External Approach (ICD-10-PCS; principal; 2023-07-19)
DX: S01.81XA Laceration without foreign body of other part of head, initial encounter (principal); W18.30XA Fall on same level, unspecified, initial encounter; F17.210 Nicotine dependence, cigarettes, uncomplicated; Z91.048 Other nonmedicinal substance allergy status
CPT/HCPCS: 70450; 72125; 12013; J2001 ×2; 99283

== ENCOUNTER 2024-10-26 13:38 | Emergency (ER) | payer OTHER ==
[2024-10-26 15:03] LABS: Specific Gravity 1.028 (1.005-1.030); Sqamous Epithelial <5 /HPF (None Seen); Urine Bacteria <20 /HPF (<20); Urine Bilirubin 2+ (Negative); Urine Blood 3+ (OVER) (Negative); Urine Clarity Extremely Turbid (Clear); Urine Color Dark-Orange (Yellow); Urine Crystals Unidentified Few /HPF (None Seen); Urine Culture Reflex Order REFLEXED; Urine Glucose NEGATIVE (Negative); Urine Ketones NEGATIVE (Negative); Urine Microscopic Reflex YN ORDER UMIC; Urine Mucus Slight /HPF (None Seen); Urine Nitrite 1+ (Negative); Urine Protein 1+ (Negative); Urine RBC >50 /HPF (None Seen); Urine Urobilinogen 1+ (Normal); Urine WBC >50 /HPF (<5); Urine WBC Clump Rare /HPF (None Seen); Urine Yeast (Budding) Trace /HPF (None Seen)
[2024-10-26] MEDS ORDERED: LIDOCAINE 1% MPF 5 ML VIAL ONE (16:04)
[2024-10-26] MEDS ORDERED: CEFTRIAXONE 1000 MG/VIAL ONE (16:04)
--- NOTE | 2024-10-26 16:21 | ER ---
Nurse's Notes [facility] Name: Carrol Dickens Age: 74 yrs Sex: Female : 1950 Arrival Date: 10/26/2024 Time: 13:38 Bed 11 Private MD: Diagnosis: UTI/ Urinary tract infection, site not specified Presentation: 10/26 14:49 Chief complaint: Patient states: Wants to have her urine checked for UTI and to ensure le1 she has a culture in process to be able to get her pain medications from her doctor. Coronavirus screen: Vaccine status: Patient reports receiving the 2nd dose of the covid vaccine. Ebola Screen: Patient negative for fever greater than or equal to 101.5 degrees Fahrenheit, and additional compatible Ebola Virus Disease symptoms Patient denies exposure to infectious person. Patient denies travel to an Ebola-affected area in the 21 days before illness onset. No symptoms or risks identified at this time. Initial Sepsis Screen: Does the patient meet any 2 criteria? No. Patient's initial sepsis screen is negative. Does the patient have a suspected source of infection? No. Patient's initial sepsis screen is negative. Risk Assessment: Do you want to hurt yourself or someone else? Patient reports no desire to harm self or others. Onset of symptoms was October 26, 2024. 14:49 Method Of Arrival: Ambulatory le1 14:49 Acuity: SHIN 4 le1 Triage Assessment: 14:51 General: Appears in no apparent distress. uncomfortable, Behavior is calm, cooperative, le1 appropriate for age. Pain: Complains of pain in left leg Pain currently is 8 out of 10 on a pain scale. Quality of pain is described as aching. EENT: No deficits noted. Neuro: No deficits noted. Cardiovascular: No deficits noted. Respiratory: No deficits noted. GI: No deficits noted. : No deficits noted. Derm: No deficits noted. Musculoskeletal: Reports pain in left leg unable to ambulate on l leg due to previous back surgeries. Historical: - Allergies: 14:50 sodium bisulfite; le1 - PMHx: 14:50 Anxiety; Depression; GERD; UTI; le1 - Immunization history:: Adult Immunizations up to date, Client reports receiving the 2nd dose of the Covid vaccine, Client reports receiving the 1st dose of the Covid vaccine, Flu vaccine is not up to date. It has been more than one year since last vaccine. - Infectious Disease History:: Denies. - Social history:: Smoking status: Patient denies any tobacco usage or history of. Patient uses alcohol, only on a social basis. Screenin:52 [facility] ED Fall Risk Assessment (Adult) History of falling in the last 3 months, le1 including since admission No falls in past 3 months (0 pts) Confusion or Disorientation No (0 pts) Intoxicated or Sedated No (0 pts) Impaired Gait Yes (1 pt) Mobility Assist Device Used Yes (1 pt) Altered Elimination No (0 pt) Score/Fall Risk Level 0 - 2 = Low Risk Oriented to surroundings, Maintained a safe environment, Educated pt \T\ family on fall prevention, incl call for assistance when getting out of bed, Assessed \T\ reinforced patient's understanding of fall precautions, Hourly rounding (assess needs \T\ fall precautionary measures) done, Used ambulatory aids as needed (educated on \T\ assisted with). Abuse screen: Denies threats or abuse. Denies injuries from another. Nutritional screening: No deficits noted. Tuberculosis screening: No symptoms or risk factors identified. Assessment: 14:52 Reassessment: Triage assessment . le1 Vital Signs: 14:49 BP 183 / 99; Pulse 84; Resp 16; Temp 98.2(O); Pulse Ox 98% on R/A; Pain 8/10; le1 16:34 BP 186 / 91; Pulse 88; Resp 16; Temp 98.2(O); Pulse Ox 98% on R/A; Pain 8/10; le1 14:49 Pain Scale: Adult le1 16:34 Pain Scale: Adult le1 ED Course: 14:09 Patient arrived in ED. sj2 14:12 Onesimo Allen FNP-C is PHCP. dr5 14:12 Delio Decker MD is Attending Physician. dr5 14:23 Pierre Webb RN is Primary Nurse. le1 14:50 Triage completed. le1 14:52 Arm band placed on right wrist. le1 14:53 Patient has correct armband on for positive identification. Bed in low position. Call le1 light in reach. Side rails up X2. Provided Education on: Informed to use call light if needing assistance. . 15:02 Urine collected: clean catch specimen, tea colored, Amount Voided: 40mL. le1 16:34 No provider procedures requiring assistance completed. Patient did not have IV access le1 during this emergency room visit. Administered Medications: 16:10 Drug: Rocephin (cefTRIAXone) IM 1 grams IM once Route: IM; Site: right ventrogluteal; le1 16:35 Follow up: Response: No adverse reaction le1 Medication: 16:35 VIS not applicable for this client. le1 Outcome: 16:21 Discharge ordered by . dr5 16:34 Discharged to home via wheelchair, le1 16:34 Condition: good 16:34 Discharge instructions given to patient, Instructed on discharge instructions, follow up and referral plans. medication usage, Demonstrated understanding of instructions, follow-up care, medications, Prescriptions given X 2, 16:35 Patient left the ED. le1 Signatures: Pierre Webb, RN RN le1 Reggie Baltazar sj2 Onesimo Allen, PERSONAL LINES INSURANCE ADVISOR-C PERSONAL LINES INSURANCE ADVISOR-Cdr5
--- NOTE | 2024-10-26 16:21 | EDPHYS ---
Physician Documentation [facility] Name: Carrol Dickens Age: 74 yrs Sex: Female : 1950 Arrival Date: 10/26/2024 Time: 13:38 Bed 11 Private MD: ED Physician Delio Decker HPI: 10/26 17:19 This 74 yrs old Female presents to ER via Ambulatory with complaints of dr5 Urinary Problem. 17:19 Onset: The symptoms/episode began/occurred 2 day(s) ago. Patient is a 71-year-old dr5 female with history of anxiety, depression, GERD, UTIs coming in with urinary tract infection like symptoms. Patient reports that she has had dysuria for the past 2 days. Patient reports having recurrent urinary tract infections. Historical: - Allergies: 14:50 sodium bisulfite; le1 - PMHx: 14:50 Anxiety; Depression; GERD; UTI; le1 - Immunization history:: Adult Immunizations up to date, Client reports receiving the 2nd dose of the Covid vaccine, Client reports receiving the 1st dose of the Covid vaccine, Flu vaccine is not up to date. It has been more than one year since last vaccine. - Infectious Disease History:: Denies. - Social history:: Smoking status: Patient denies any tobacco usage or history of. Patient uses alcohol, only on a social basis. ROS: 17:19 Constitutional: as per hpi dr5 Exam: 17:19 Constitutional: This is a well developed, well nourished patient who is awake, alert, dr5 and in no acute distress. Head/Face: Normocephalic, atraumatic. ENT: Nares patent. No nasal discharge, no septal abnormalities noted. Tympanic membranes are normal and external auditory canals are clear. Oropharynx with no redness, swelling, or masses, exudates, or evidence of obstruction, uvula midline. Mucous membranes moist. Neck: Trachea midline, no thyromegaly or masses palpated, and no cervical lymphadenopathy. Supple, full range of motion without nuchal rigidity, or vertebral point tenderness. No Meningismus. Chest/axilla: Normal chest wall appearance and motion. Nontender with no deformity. No lesions are appreciated. Cardiovascular: Regular rate and rhythm with a normal S1 and S2. Normal PMI, no JVD. No pulse deficits. Respiratory: Lungs have equal breath sounds bilaterally, clear to auscultation. No rales, rhonchi or wheezes noted. No increased work of breathing, no retractions or nasal flaring. Back: No spinal tenderness. No costovertebral tenderness. Full range of motion. Skin: Warm, dry with normal turgor. Normal color with no rashes, no lesions, and no evidence of cellulitis. MS/ Extremity: Pulses equal, no cyanosis. Neurovascular intact. Full, normal range of motion. Neuro: Awake and alert, GCS 15, oriented to person, place, time, and situation. Cranial nerves II-XII grossly intact. Motor strength 5/5 in all extremities. Sensory grossly intact. Cerebellar exam normal. Normal gait. Vital Signs: 14:49 BP 183 / 99; Pulse 84; Resp 16; Temp 98.2(O); Pulse Ox 98% on R/A; Pain 8/10; le1 16:34 BP 186 / 91; Pulse 88; Resp 16; Temp 98.2(O); Pulse Ox 98% on R/A; Pain 8/10; le1 14:49 Pain Scale: Adult le1 16:34 Pain Scale: Adult le1 MDM: 14:12 Medical Screening Exam initiated dr5 17:19 Differential diagnosis: viral Infection, bacterial infection, UTI. Data reviewed: vital dr5 signs, nurses notes, lab test result(s), urinalysis. I considered the following discharge prescriptions or medication management in the emergency department Medications were administered in the Emergency Department. See MAR. Care significantly affected by the following chronic conditions: Recurrent UTIs, depression, anxiety, GERD. Care significantly affected by the following Social Determinants of Health: Poor access to healthcare and/or lack of insurance, Poor access to transportation, Problems related to employment. Counseling: I had a detailed discussion with the patient and/or guardian regarding the historical points, exam findings, and any diagnostic results supporting the discharge/admit diagnosis, the presence of at least one elevated blood pressure reading (>120/80) during this emergency department visit, lab results, the need for outpatient follow up, for definitive care, a family practitioner, a urologist, to return to the emergency department if symptoms worsen or persist or if there are any questions or concerns that arise at home. ED course: Patient was given 1 g of Rocephin IM in ER. Will give patient cephalexin twice a day for the next 7 days. Encourage patient to increase hydration. Recommended patient follow-up primary care doctor and urologist for further management. I did discuss that we will have her urine culture results in the next couple days and we will call her if it needs to be changed. All questions answered. Strict ER precautions given.. 10/26 14:28 Order name: Urinalysis w/ reflexes; Complete Time: 15:59 dr5 10/26 15:18 Order name: Urine Culture EDMS Administered Medications: 16:10 Drug: Rocephin (cefTRIAXone) IM 1 grams IM once Route: IM; Site: right ventrogluteal; le1 16:35 Follow up: Response: No adverse reaction le1 Disposition Summary: 10/26/24 16:21 Discharge Ordered Notes: Location: Home dr5 Condition: Stable dr5 Diagnosis - UTI/ Urinary tract infection, site not specified dr5 Followup: dr5 - With: Emergency Department - When: As needed - Reason: Worsening of condition Followup: dr5 - With: Private Physician - When: 1 - 2 days - Reason: Recheck today's complaints, Continuance of care, Re-evaluation by your physician Discharge Instructions: - Discharge Summary Sheet dr5 - Urinary Tract Infection, Adult, [id number] dr5 Forms: - Medication Reconciliation Form dr5 - Antibiotic Education dr5 - Patient Portal Instructions dr5 - Leadership Thank You Letter dr5 Prescriptions: - lidocaine 4 % Topical gel - apply 1 application TOPICAL route 2 to 4 times per day As needed as needed for dr5 pain; 1 application; Refills: 0, Product Selection Permitted - Cephalexin 500 mg Oral Capsule - take 1 capsule ORAL route every 12 hours for 10 days; 20 capsule; Refills: 0, dr5 Product Selection Permitted Signatures: Dispatcher [employer] EDPierre Phoenix, RN RN le1 Onesimo Allen, AUDIO PRODUCTION MANAGER-C AUDIO PRODUCTION MANAGER-Cdr5
[2024-10-26 16:55] VITALS: TEMP 98.2; O2SAT 98
[2024-10-26 16:56] VITALS: BP 186/91
== END 2024-10-26 16:35 | disposition home or self-care (01) ==
LOC: ER 13:38
DX: N39.0 Urinary tract infection, site not specified (principal)
CPT/HCPCS: 87088; 81001; 87086; J2003; J0696; 96372; 99284